=== PATIENT | female | born 1960 | race Caucasian/White ===

== ENCOUNTER → 2016-07-20 | Outpatient (CLI) | payer MEDICARE | END | disposition home or self-care (01) | LOC: LABWHC1 15:18 | PROVIDERS: ATTEND Orthopaedic Surgery | DX: Z01.812 Encounter for preprocedural laboratory examination (principal) | CPT/HCPCS: 87070 ==

== ENCOUNTER → 2016-07-20 | Outpatient (CLI) | payer MEDICARE ==
--- NOTE | 2016-07-20 15:44 | XR ---
EXAMINATION TYPE: XR chest 2V DATE OF EXAM: 07/20/2016 3:39 PM COMPARISON: Prior chest x-ray February 21, 2013. HISTORY: Presurgical study. TECHNIQUE: Frontal and lateral views of the chest are obtained. FINDINGS: There is no focal air space opacity, pleural effusion, or pneumothorax seen. Slightly dimi nished inspiration is noted. The cardiac silhouette size is upper limits of normal. The osseous str uctures are intact. IMPRESSION: No acute process.
== END | disposition home or self-care (01) ==
LOC: RADXRMAIN 15:14
PROVIDERS: ATTEND Family Medicine
DX: Z01.818 Encounter for other preprocedural examination (principal); Z96.651 Presence of right artificial knee joint
CPT/HCPCS: 71020

== ENCOUNTER 2016-08-15 07:05 | Inpatient (IN) | payer MEDICARE ==
[2016-08-07 15:30] VITALS: BMI 44.6
--- NOTE | 2016-08-14 17:18 | HP ---
DATE OF ADMISSION: 08/15/2016 CHIEF COMPLAINT: Right knee pain. HISTORY OF PRESENT ILLNESS: The patient is a 56-year-old disabled female who presents with right knee pain, worsening over the past couple of years. She notes giving way along with diffuse pain that limits her normal function and activities. She has tried using a cane in addition to injections and medications, with only partial temporary relief. She has a difficult time with any walking. Past medical history is significant for: 1. Heart disease. 2. Depression. 3. Hypertension. 4. Previous CVA. Past surgical history is significant for: 1. Previous right knee arthroscopy. 2. Right foot surgery. 3. Gastric bypass. 4. Cholecystectomy. 5. Carpal tunnel release. 6. Cardiac catheterization. CURRENT MEDICATIONS: 1. Plavix. 2. Aspirin. 3. Lexapro. 4. Lipitor. 5. Losartan. 6. Hydrochlorothiazide. ALLERGIES: RELPAX. FAMILY HISTORY: Significant for diabetes and heart disease. SOCIAL HISTORY: Significant for previous tobacco use. Sixteen-point review of systems otherwise reviewed and is noncontributory. On examination, the patient is approximately 5 feet 1 inch, 234 pounds of endomorphic habitus. HEENT exam is nonfocal. Neck is supple. She is nontender about the lumbar spine. She has painless passive motion of the right hip. Ghljxjfy-xnf-ajkaf is negative. Active motion of the right knee minus 12 to 85 degrees of flexion. She has a moderate effusion. Collaterals are stable, Robert's negative. Kristyn's is equivocal. She has genu varum alignment. Her distal neurovascular exam appears to be intact in the right lower extremity. Weight-bearing notch, lateral and merchant views of the right knee obtained in the office show severe medial and patellofemoral compartment narrowing. IMPRESSION: 1. Right knee severe medial and patellofemoral compartment osteoarthrosis. 2. Increased body mass index. 3. Coronary artery disease. 4. History of cerebrovascular accident. RECOMMENDATIONS: I talked to the patient at length regarding her treatment options. At this point she is quite symptomatic and opts to proceed with surgery. Risks and benefits were discussed at length in layman's terms. She underwent preoperative medical evaluation by Dr. Mcgovern and cardiac evaluation by Dr. Flores. We will institute DVT prophylaxis postoperatively.
[~2016-08-15 07:05] MED LIST: ACETAMINOPHEN TAB 500 MG TAB PO ONE; DEXAMETHASONE SOD PHOSPHATE 10 MG/ML 1 ML VIAL IV ONE; FAMOTIDINE 20 MG/2 ML VIAL IV PRN; HYDROmorphone 1 MG/ML 1 ML SYRINGE IVP PRN; LIDOCAINE 1% 20 ML VIAL (10MG/ML) FOR IV START INTRADERMA PRN; MELOXICAM 7.5 MG TAB PO ONE; MIDAZOLAM 2 MG/2 ML VIAL IV PRN; ONDANSETRON 4 MG/2 ML VIAL IVP ONE; TRANEXAMIC ACID 1,000 MG in SODIUM CHLORIDE 0.9% 100 ML IVPB ONE; ceFAZolin 2 GM in SODIUM CHLORIDE 0.9% 100 ML IVPB ONE
[2016-08-15] MEDS: LACTATED RINGERS 1,000 ML IV SCH ×2 (09:56→23:41)
[2016-08-15] MEDS ORDERED: ROPIVACAINE 1,100 MG, SODIUM CHLORIDE 0.9% 330 ML MISCELLANE PRN ×2 (10:15)
--- NOTE | 2016-08-15 10:17 | P.ONQ ---
Anesthesiology Proc Note - PNB - Peripheral Nerve Block Performed Right Adductor Canal Time Out Performed: Yes Procedure Start Time: 10:00 Procedure Stop Time: 10:10 Indication: Acute Post-Operative Pain, Analgesia Sedation Type: Sedate with meaningful contact maintained Preparation: Sterile Prep Position: Supine Catheter: Indwelling Needle Types: On-Q, Totroy Needle Size: 100mm (4") Needle Gauge: 20 Technique: Ultrasound Injectate: 0.5% Ropivacaine (see comment for volume) Blood Aspirated: No Pain Paresthesia on Injection Noted: No Resistance on Injection: Normal Events: Uneventful and Well Tolerated
[2016-08-15] MEDS ORDERED: ROPIVACAINE 246.25 MG, EPINEPHrine 0.5 MG, KETOROLAC 30 MG, cloNIDine HCL/PF 80 MCG, WA... MISCELLANE ONE ×5 (10:19)
[2016-08-15] MEDS ORDERED: SODIUM CHLORIDE 0.9% 100 ML BAG ONE (11:14)
[2016-08-15] MEDS ORDERED: SUCCINYLCHOLINE CHLORIDE 100 MG/5 ML SYR IV ONE (11:14)
[2016-08-15] MEDS ORDERED: TRANEXAMIC ACID 1,000 MG/10 ML VIAL ONE (11:14)
[2016-08-15] MEDS ORDERED: PROPOFOL 10 MG/ML 20 ML VIAL IV ONE (11:14)
[2016-08-15] MEDS ORDERED: fentaNYL (PF) 50 MCG/ML 2 ML AMP ONE (11:14)
[2016-08-15] MEDS ORDERED: ePHEDrine 50 MG/ML 1 ML AMP ONE (11:14)
[2016-08-15] MEDS ORDERED: GLYCOPYRROLATE 0.2 MG/ML 2 ML VIAL ONE (11:14)
[2016-08-15] MEDS ORDERED: LIDOCAINE 1% INJ 10MG/ML (20 ML MDV) ONE (11:14)
[2016-08-15] MEDS ORDERED: ceFAZolin 3,000 MG in SODIUM CHLORIDE 0.9% IRRIGATIO 3,000 ML IRRIGATION ONE (11:30)
[2016-08-15] MEDS ORDERED: LACTATED RINGERS 1,000 ML IV ONE ×3 (11:45→14:43)
[2016-08-15] MEDS ORDERED: ONDANSETRON 4 MG/2 ML VIAL IVP PRN (12:50)
[2016-08-15] MEDS ORDERED: NALOXONE 0.4 MG/ML 1 ML VIAL IV PRN (12:50)
[2016-08-15] MEDS ORDERED: HYDROmorphone 1 MG/ML 1 ML SYRINGE IVP PRN ×2 (12:50)
[2016-08-15] MEDS ORDERED: HYDROcodone/APAP 7.5-325MG 1 EACH TAB PO PRN (12:50)
[2016-08-15] MEDS ORDERED: MAGNESIUM HYDROXIDE 2,400 MG/10 ML CUP PO PRN (12:50)
--- NOTE | 2016-08-15 13:23 | P.OP ---
Date of Procedure: 08/15/16 Preoperative Diagnosis: Right knee severe tricompartmental osteoarthrosis-primary Postoperative Diagnosis: Same Procedure(s) Performed: Right total knee nfrklgvxlqcz-qomhhpye-gpenqohq retaining Implants: Casi persona size 8 cemented femoral component, size the cemented tibial component, 10 mm articular surface, 32 m patella. This is a cruciate retaining implant. Anesthesia: GETA, regional, local Surgeon: Noel Adkins Mill Machinist #1: Mumtaz Kee Estimated Blood Loss (ml): 75 Pathology: other (Bone fragments) Condition: stable Disposition: PACU Indications for Procedure: The patient's a 56-year-old female who presents with progressive right knee pain secondary to osteoarthrosis despite conservative measures. A discussion of the risks and benefits of operative intervention versus continued conservative measures was made with the patient. She opted to proceed with surgery. Operative risks to include infection, neurovascular injury, development of blood clots, possible component loosening, possible component failure and need for subsequent procedures was discussed. Informed consent was obtained. Operative Findings: As below Description of Procedure: The patient was brought to the operating room, and after induction of general anesthesia the right lower extremity was prepped and draped in normal fashion. The tourniquet was inflated to 270 mmHg. A longitudinal incision extending 3 finger breaths above the sphere pole of patella extending to the medial aspect the tibial tubercle was then made. Skin and subcu tissues were divided sharply. Electrocautery was used for hemostasis. A medial parapatellar arthrotomy is performed. The medial soft tissues to include the superficial and deep portions of the medial collateral ligament as well as the medial hamstring tendons were elevated subperiosteally. I also elevated the posterior medial capsule. The proximal medial tibial osteophytes were carefully were removed. The ACL was sacrificed. A starting hole was made in the distal femur 1 cm anterior to the posterior cruciate ligament. An intramedullary guide was gently inserted planning on 5 valgus distal cut with 9.5 mm distal resection. The cutting block was pinned in place. The distal cut was then made. The posterior referencing sizing guide was utilized. I felt size 8 was most appropriate. 3 of external rotation was built in the system and verified off the trans-epicondylar axis and the posterior condyles. The cutting block was pinned in place. The anterior, posterior, and chamfer cuts were then made. The bone fragments were removed. A trial size 8 femoral component was placed and was fully seated. There is good anterior to posterior and medial to lateral fit. The distal peg holes were drilled. The trial component was then removed. Attention was then paid towards preparing the proximal tibia. An extra medullary guide was utilized in line with the tibial shaft and second metatarsal distally. A 7 posterior slope cutting block was utilized. I planned on 2 mm resection from the medial compartment. The cutting block was pinned in place. The proximal tibial cut was made protecting the posterior cruciate ligament with a retractor. The bone was removed one fragment. The tibia sized most appropriately at size E. The trial femoral and tibial components were placed after resecting the menisci at the capsular junction with electrocautery. A 10 mm articular surface was placed. The knee was then taken through a range of motion. I had good stability with varus and valgus stress and was able to obtain full flexion and extension. After several flexion and extension cycles, the tibial rotation was marked with electrocautery in line with the medial third of the tibial tubercle. Attention was then paid towards preparing the patella. A patella reamer was utilized taking senna 14 mm of bone stock. A good flush cut was made. The patella sized most appropriately 32 mm. The peg holes were drilled. The trial components placed. The knee was taken through a range of motion. I had good patellofemoral tracking with no hands technique. The trial components were then removed. The tibia was prepared in the appropriate rotation with the appropriate drill and keel punch. The posterior osteophytes of the distal femur were carefully removed with a curved osteotome. The flexion and extension gaps were checked and felt to be symmetric. The bony surfaces were prepared with pulsatile lavage and dried. The posterior soft tissues were injected with ropivacaine. The tibial component was then cemented in placed and was fully seated. Excess cement was removed. The femoral component was cemented in placed and was fully seated. Excess cement was removed. The trial 10 mm articular surface was placed and the knee was put in full extension. The patella component was cemented in placed and was fully seated. After the cement had sufficiently hardened, the knee was again taken through range of motion. Again I was able to obtain full flexion and extension with good stability with varus valgus stress. The trial articular surface was removed and the final one inserted. This was fully seated. Care was taken to avoid any soft tissue interposition. Pulsatile lavage was again utilized. The medial parapatellar arthrotomy was closed with #2 Ethibond suture. A deep drain was placed exiting laterally. The tourniquet was deflated the proximal a 70 minutes total tourniquet time. The subcutaneous tissues were reapproximated with interrupted 2-0 Vicryl sutures. Skin was reapproximated with 3-0 subcuticular strata fix suture. Skin tape and adhesive was applied. A sterile dressing was applied. The patient was awoken from general anesthesia and transferred to the recovery room in good condition. Blood loss was estimated 75 mL. No complications were incurred. Sponge and needle counts were correct at the end the case.
--- NOTE | 2016-08-15 14:10 | XR ---
EXAMINATION TYPE: XR knee limited RT DATE OF EXAM: 08/15/2016 1:43 PM CLINICAL HISTORY: Postoperative evaluation Two views of the right knee are submitted. Identified are changes of total knee arthroplasty with femoral and tibial components appearing well seated. Postsurgical soft tissue changes are noted. Alignment is anatomic.
[2016-08-15] MEDS: KETOROLAC 30 MG/ML 1 ML VIAL IVP PRN (16:17)
[2016-08-15] MEDS: HYDROcodone/APAP 7.5-325MG 1 EACH TAB PO PRN ×2 (16:29→21:54)
[2016-08-15] MEDS: hydrOXYzine PAMOATE 25 MG CAP PO PRN ×2 (16:30→21:55)
[2016-08-15] MEDS: traMADol 50 MG TAB PO SCH ×2 (18:20→23:40)
[2016-08-15] MEDS: SENNOSIDES-DOCUSATE SODIUM 1 EACH TAB PO SCH (21:59)
[2016-08-15] MEDS: ceFAZolin 2 GM in SODIUM CHLORIDE 0.9% 100 ML IVPB SCH (21:59)
[2016-08-16] MEDS: ceFAZolin 2 GM in SODIUM CHLORIDE 0.9% 100 ML IVPB SCH (04:08)
[2016-08-16] MEDS: HYDROcodone/APAP 7.5-325MG 1 EACH TAB PO PRN ×4 (05:29→23:31)
[2016-08-16] MEDS: hydrOXYzine PAMOATE 25 MG CAP PO PRN ×4 (05:29→23:31)
[2016-08-16] MEDS: FAMOTIDINE 20 MG TAB PO SCH (08:00)
[2016-08-16] MEDS: CLOPIDOGREL 75 MG TAB PO SCH (08:00)
[2016-08-16] MEDS: ASPIRIN 81 MG CHEW PO SCH (08:00)
[2016-08-16] MEDS: traMADol 50 MG TAB PO SCH ×5 (08:01→23:59)
[2016-08-16] MEDS: MELOXICAM 7.5 MG TAB PO SCH (08:02)
[2016-08-16 08:05] LABS: Basophils % (A) 0 %; CHCM 32.7; Eosinophils % (A) 0 %; HCT 35.2 % (34.0-46.0); HDW 2.49; Luc # (Auto) 0.25; Luc % (Auto) 3; Lymphocytes % (A) 10 %; MCH 31.4 pg (25.0-35.0); MCHC 34.1 g/dL (31.0-37.0); Mean Platelet Volume 7.4; Monocytes # (A) 0.6 k/uL (0-1.0); Monocytes % (A) 6 %; Neutrophils # (A) 7.9 k/uL (1.3-7.7); Neutrophils % (A) 81 %; RBC 3.82 m/uL (3.80-5.40); WBC 9.8 k/uL (3.8-10.6); WBC (Perox) 9.89
--- NOTE | 2016-08-16 09:22 | P.PN ---
Subjective pod 1; onq pump in place; catheter system intact; comfortable Objective - Vital Signs Vital signs: Vital Signs Temp 97.9 F 08/16/16 07:00 Pulse 71 08/16/16 07:00 Resp 16 08/16/16 07:00 BP 112/74 08/16/16 07:00 Pulse Ox 95 08/16/16 07:00 Intake & Output 08/15/16 08/16/16 08/16/16 18:59 06:59 18:59 Intake Total 2051 600 Output Total 195 355 Balance 1856 245 Intake: IV 2051 200 Lactated Ringers 1,000 ml 200 @ 50 mls/hr IV .Q20H CONCHA Rx#:[id number] Intake, IV Titration 400 Amount Lactated Ringers 1,000 ml 400 @ 50 mls/hr IV .Q20H CONCHA Rx#:[id number] Output: Drainage 5 Right Knee 5 Urine 120 350 Uretheral (Donahue) 350 Estimated Blood Loss 75 Other: Voiding Method Indwelling Catheter Indwelling Catheter Indwelling Catheter - Labs CBC & Chem 7: 08/16/16 07:25 Labs: Abnormal Lab Results - Last 24 Hours (Table) 08/16/16 Range/Units 07:25 Neutrophils # 7.9 H (1.3-7.7) k/uL
[2016-08-16] MEDS: HYDROCHLOROTHIAZIDE 25 MG TAB PO SCH (11:18)
[2016-08-16] MEDS: ESCITALOPRAM 20 MG TAB PO SCH (11:18)
[2016-08-16] MEDS: LOSARTAN 50 MG TAB PO SCH (11:19)
[2016-08-16] MEDS: ATORVASTATIN 10 MG TAB PO SCH (20:08)
[2016-08-16] MEDS: SENNOSIDES-DOCUSATE SODIUM 1 EACH TAB PO SCH (20:08)
[2016-08-16] MEDS: PRIMIDONE 50 MG TAB PO SCH (20:08)
[2016-08-16] MEDS: LACTATED RINGERS 1,000 ML IV SCH (20:09)
[2016-08-17] MEDS: KETOROLAC 30 MG/ML 1 ML VIAL IVP PRN ×2 (02:48→08:22)
[2016-08-17] MEDS: HYDROcodone/APAP 7.5-325MG 1 EACH TAB PO PRN ×3 (05:15→20:22)
[2016-08-17] MEDS: hydrOXYzine PAMOATE 25 MG CAP PO PRN ×3 (05:15→20:23)
[2016-08-17] MEDS: MELOXICAM 7.5 MG TAB PO SCH (08:01)
[2016-08-17] MEDS: CLOPIDOGREL 75 MG TAB PO SCH (08:01)
[2016-08-17] MEDS: FAMOTIDINE 20 MG TAB PO SCH (08:02)
[2016-08-17] MEDS: ASPIRIN 81 MG CHEW PO SCH (08:02)
[2016-08-17] MEDS: ESCITALOPRAM 20 MG TAB PO SCH (08:02)
[2016-08-17] MEDS: HYDROCHLOROTHIAZIDE 25 MG TAB PO SCH ×2 (08:04→12:01)
[2016-08-17] MEDS: LOSARTAN 50 MG TAB PO SCH ×2 (08:04→12:01)
[2016-08-17] MEDS: traMADol 50 MG TAB PO SCH ×4 (08:10→22:00)
--- NOTE | 2016-08-17 08:39 | P.PN ---
Progress Note - Text The patient is status post right adductor canal catheter placement. The catheter was placed for postoperative pain control, status post total right arthroplasty. Ropivacaine 0.2% is infusing at 12 mLs per hour. The patient has no complaints of right lower extremity numbness or weakness. Patient's VAS score is 4 -10. Assessment: Patient's adductor canal catheter is in place and working appropriately. Plan: continue infusion and adjust it as needed.
--- NOTE | 2016-08-17 09:45 | P.PN ---
Subjective Principal diagnosis: Status post right total knee arthroplasty Patient is seen today resting in her hospital, she appears comfortable. Her pain is well-controlled at this time. She denies any headaches, lightheadedness , chest pain, shortness of breath. Objective - Vital Signs Vital signs: Vital Signs Temp 99.4 F 08/17/16 07:25 Pulse 66 08/17/16 08:00 Resp 16 08/17/16 08:00 BP 105/71 08/17/16 07:25 Pulse Ox 95 08/17/16 07:25 Intake & Output 08/16/16 08/17/16 08/17/16 18:59 06:59 18:59 Output Total 300 Balance -300 Output: Urine 300 Uretheral (Donahue) 300 Other: Voiding Method Indwelling Catheter Toilet Toilet # Voids 1 1 - Exam Right lower extremity: Incision is clean, dry and intact. Minimal soft tissue swelling present around the knee. Calf is soft, palpation. Plantar flexion, dorsiflexion, EHL, FHL are intact. Sensory exam touch throughout the extremities intact, cap refills less than 2 seconds. - Labs CBC & Chem 7: 08/16/16 07:25 Assessment and Plan Plan: Assessment: 1. Postop day #2 status post right total knee arthroplasty Plan: 1. Pain control, continue oral medications 2. Continue working with therapy and CPM 3. Daily dressing changes/ice and elevate 4. GI and DVT prophylaxis, continue current meds 5. Medical recommendations 6. Discharge planning: Patient will be likely discharged home tomorrow Time with Patient: Less than 30
--- NOTE | 2016-08-17 09:47 | P.DS ---
Providers Date of admission: 08/15/16 08:50 Expected date of discharge: 08/18/16 Attending physician: Noel Adkins Consults: 08/15/16 12:52 Consult Physician Routine Consulting Provider: Raymond Mcgovern Consult Reason/Comments: Medical Management Do you want consulting provider notified?: Yes Primary care physician: Jose David Harkins [facility] Course: Date of admission: 08/15/2016 Date of discharge: 08/18/2016 Admission diagnosis: Status post right total knee arthroplasty Discharge diagnosis: Same Attending physician: Dr. Adkins Surgical procedures: Right total knee arthroplasty Brief history: Patient is a 56-year-old female with a history of progressive primary right knee osteoarthritis. At this point patient has failed conservative treatment measures and has opted to proceed with a elective right total knee arthroplasty. Hospital course: Details of patient's surgery can be found in operative report. Patient tolerated the procedure well and was subsequently transported to orthopedic floor. Patient's orthopeidc and medical care was provided daily. Patient had daily laboratory tests performed for evaluation of overall blood counts. Patient had daily physical therapy to include strengthening range of motion as well as education with walker ambulation. Patient had daily CPM usage as part of their physical therapy program. Patient was treated with aspirin and Plavix for their postoperative DVT prophylaxis during their inpatient stay. Patient was noted to have a relatively uneventful postoperative course. Patient reported satisfactory pain control with oral pain medications by postoperative day 0. Patient showed satisfactory progress with physical therapy. Patient moved steadily through the program and had no difficulty meeting the goals by postoperative day 3. Given patient's otherwise satisfactory course and having met physical therapy goals, plan is to discharge patient home on postoperative day 3. Discharge condition/disposition: Patient will be discharged home in stable condition. Discharge medications: Instructions are given on resumption of patient's normal daily medications per primary care recommendation, in addition patient will be prescribed [place] 7.5 mg/325 mg, tramadol 50 mg, Pepcid 20 mg, Colace 100 mg. Discharge instructions: 1. Wound care and infection precautions, keep incision dry and covered while showering, no lotions, creams, moisturizers. No soaking, tubs, pools, hottubs. Do not scrub over the incision. 2. Weight-bear as tolerated with walker / cane until follow-up. 3. Ice and elevate when necessary. Do not exceed 20 minutes per hour with ice pack. 4. Utilize compression sleeve until seen at first follow up appointment. 5. Visiting nursing care. 6. Home physical therapy including home CPM. 7. Pain meds and anticoagulants per prescription. 8. Pain medication has potential to cause constipation. Increase oral fluid and fiber intake. Contact primary care provider if you have not had a bowel movement within 48 hours after discharge 9. No anti-inflammatory medication until discussed at first post operative visit, this including Motrin, Aleve, Mobic, Diclofenac. 10. Follow up in office at 2 weeks postop with Marcus eKe PA-C 11. Follow up with your primary care doctor 7-10 days after discharge. 12. Contact [facility] with any questions, . Procedures: Right total knee arthroplasty Patient Condition at Discharge: Good Plan - Discharge Summary New Discharge Prescriptions: Docusate [Colace] 100 mg PO DAILY #30 capsule Famotidine [Pepcid] 20 mg PO DAILY #30 tablet HYDROcodone/APAP 7.5-325MG [[place] 7.5] 1 - 2 each PO Q6HR PRN #60 tab PRN Reason: Pain traMADol HCl [Ultram] 50 mg PO Q6H PRN #40 tab PRN Reason: Pain Discharge Medication List Hydrochlorothiazide [Hydrodiuril] 25 mg PO DAILY 12/19/13 [History] Atorvastatin Calcium [Lipitor] 10 mg PO HS #30 tab 12/21/13 [Rx] Clopidogrel [Plavix] 75 mg PO DAILY #30 tab 12/21/13 [Rx] Escitalopram Oxalate [Lexapro] 20 mg PO DAILY 02/17/15 [History] Losartan [Cozaar] 50 mg PO DAILY 02/17/15 [History] Primidone [Mysoline] 100 mg PO HS 02/17/15 [History] Aspirin [Adult Low Dose Aspirin EC] 81 mg PO DAILY 08/07/16 [History] Docusate [Colace] 100 mg PO DAILY #30 capsule 08/18/16 [Rx] Famotidine [Pepcid] 20 mg PO DAILY #30 tablet 08/18/16 [Rx] HYDROcodone/APAP 7.5-325MG [[place] 7.5] 1 - 2 each PO Q6HR PRN #60 tab 08/18/16 [ Rx] traMADol HCl [Ultram] 50 mg PO Q6H PRN #40 tab 08/18/16 [Rx] Follow up Appointment(s)/Referral(s): [facility], [NON-STAFF] - 1 Week Mumtaz Kee PAC [PHYSICIAN [employer] INSTALLER] - 2 Weeks Activity/Diet/Wound Care/Special Instructions: pt has CMP at home already walker to delivered to pt room Orthopedic Discharge Instructions: 1. Wound care and infection precautions, keep incision dry and covered while showering, no lotions, creams, moisturizers. No soaking, pools, hot tubs. Do not scrub over incision. 2. Weight-bear as tolerated with walker / cane until follow-up. 3. Ice and elevate when necessary. Do not exceed 20 minutes per hour with ice pack. 4. Utilize compression sleeve until seen at first follow up appointment. 5. Visiting nursing care. 6. Home physical therapy including home CPM. 7. Pain meds and anticoagulants per prescription. 8. Pain medication has potential to cause constipation. Increase oral fluid and fiber intake. Contact primary care provider if you have not had a bowel movement within 48 hours after discharge. 9. No anti-inflammatory medication until discussed at first post operative visit, this including Motrin, Aleve, Mobic, Diclofenac. 10. Follow up in office at 2 weeks postop with Marcus Kee PA-C 11. Follow up with your primary care doctor 7-10 days after discharge. 12. Contact [facility] with any questions, . Discharge Disposition: HOME WITH HOME HEALTH SERVICES
[2016-08-17] MEDS: LACTATED RINGERS 1,000 ML IV SCH (15:37)
[2016-08-17] MEDS: ATORVASTATIN 10 MG TAB PO SCH (20:24)
[2016-08-17] MEDS: PRIMIDONE 50 MG TAB PO SCH (20:24)
[2016-08-17] MEDS: SENNOSIDES-DOCUSATE SODIUM 1 EACH TAB PO SCH (22:00)
[2016-08-18] MEDS ORDERED: HYDROcodone/APAP 7.5-325MG 1 EACH TAB ONE (03:00)
[2016-08-18 05:26] VITALS: PULSE 74; RESP 16; TEMP 98.1
[2016-08-18 07:17] VITALS: BP 118/77
[2016-08-18 07:27] LABS: Basophils % (A) 0 %; CH 31.1; CHCM 33.6; Eosinophils # (A) 0.4 k/uL (0-0.7); Eosinophils % (A) 5 %; HDW 2.45; HGB 12.3 gm/dL (11.4-16.0); Luc % (Auto) 3; Lymphocytes # (A) 2.3 k/uL (1.0-4.8); Lymphocytes % (A) 31 %; MCH 30.7 pg (25.0-35.0); MCHC 33.1 g/dL (31.0-37.0); MCV 92.7 fL (80.0-100.0); Mean Platelet Volume 7.6; Monocytes # (A) 0.4 k/uL (0-1.0); Monocytes % (A) 5 %; Neutrophils # (A) 4.2 k/uL (1.3-7.7); Neutrophils % (A) 56 %; RBC 3.99 m/uL (3.80-5.40); RDW 13.2 % (11.5-15.5); WBC 7.4 k/uL (3.8-10.6); WBC (Perox) 7.84
[2016-08-18] MEDS: ESCITALOPRAM 20 MG TAB PO SCH (07:53)
[2016-08-18] MEDS: FAMOTIDINE 20 MG TAB PO SCH (07:53)
[2016-08-18] MEDS: CLOPIDOGREL 75 MG TAB PO SCH (07:53)
[2016-08-18] MEDS: ASPIRIN 81 MG CHEW PO SCH (07:53)
[2016-08-18] MEDS: HYDROCHLOROTHIAZIDE 25 MG TAB PO SCH (07:54)
[2016-08-18] MEDS: MELOXICAM 7.5 MG TAB PO SCH (07:54)
[2016-08-18] MEDS: traMADol 50 MG TAB PO SCH ×2 (07:54→12:30)
[2016-08-18] MEDS: LOSARTAN 50 MG TAB PO SCH (07:54)
[2016-08-18] MEDS: LACTATED RINGERS 1,000 ML IV SCH (07:56)
[2016-08-18] MEDS: HYDROcodone/APAP 7.5-325MG 1 EACH TAB PO PRN (09:41)
--- NOTE | 2016-08-18 11:41 | P.PN ---
Subjective Principal diagnosis: Status post right total knee arthroplasty Patient is seen today resting in her hospital, she appears comfortable. Her pain is well-controlled at this time. She denies any headaches, lightheadedness , chest pain, shortness of breath. Objective - Vital Signs Vital signs: Vital Signs Temp 98.1 F 08/18/16 07:00 Pulse 74 08/18/16 07:16 Resp 16 08/18/16 07:16 BP 118/77 08/18/16 07:00 Pulse Ox 95 08/18/16 07:00 Intake & Output 08/17/16 08/18/16 08/18/16 18:59 06:59 18:59 Intake Total 500 Balance 500 Weight 107.048 kg Intake: Oral 500 Other: Voiding Method Toilet Toilet Toilet # Voids 1 - Exam Right lower extremity: Incision is clean, dry and intact. Minimal soft tissue swelling present around the knee. Calf is soft, palpation. Plantar flexion, dorsiflexion, EHL, FHL are intact. Sensory exam touch throughout the extremities intact, cap refills less than 2 seconds. - Labs CBC & Chem 7: 08/18/16 07:02 Assessment and Plan Plan: Assessment: 1. Postop day #3 status post right total knee arthroplasty Plan: 1. Pain control, continue oral medications 2. Continue working with therapy and CPM 3. Daily dressing changes/ice and elevate 4. GI and DVT prophylaxis, continue current meds 5. Medical recommendations 6. Discharge planning: Patient will be discharged home today Time with Patient: Less than 30
== END 2016-08-18 13:39 | disposition home health service (06) | DRG 470 ==
LOC: 2ORMAIN 08:50 → 3SUR 12:45
PROVIDERS: ADMIT Orthopaedic Surgery; ATTEND Orthopaedic Surgery
PROC: 0SRC0J9 Replacement of Right Knee Joint with Synthetic Substitute, Cemented, Open Approach (ICD-10-PCS; principal; 2016-08-15 10:30)
DX: M17.11 Unilateral primary osteoarthritis, right knee (principal); Z68.41 Body mass index [BMI] 40.0-44.9, adult; I10 Essential (primary) hypertension; I25.10 Atherosclerotic heart disease of native coronary artery without angina pectoris; M25.761 Osteophyte, right knee; M21.161 Varus deformity, not elsewhere classified, right knee; E78.2 Mixed hyperlipidemia; E66.9 Obesity, unspecified; F32.9 Major depressive disorder, single episode, unspecified; Z82.49 Family history of ischemic heart disease and other diseases of the circulatory system; Z90.49 Acquired absence of other specified parts of digestive tract; Z98.84 Bariatric surgery status; Z87.891 Personal history of nicotine dependence; Z83.3 Family history of diabetes mellitus; Z88.8 Allergy status to other drugs, medicaments and biological substances; Z79.02 Long term (current) use of antithrombotics/antiplatelets; Z79.82 Long term (current) use of aspirin; Z79.899 Other long term (current) drug therapy; Z98.61 Coronary angioplasty status; Z86.73 Personal history of transient ischemic attack (TIA), and cerebral infarction without residual deficits; Z86.39 Personal history of other endocrine, nutritional and metabolic disease; Z87.09 Personal history of other diseases of the respiratory system; Z86.69 Personal history of other diseases of the nervous system and sense organs
CPT/HCPCS: 85025; 88300

== ENCOUNTER 2018-02-26 17:46 | Emergency (ER) | payer MEDICARE ==
[2018-02-26] MEDS ORDERED: SODIUM CHLORIDE 0.9% 1,000 ML IV ONE (17:56)
[2018-02-26 18:35] LABS: Basophils % (A) 1 %; Eosinophils # (A) 0.3 k/uL (0-0.7); Eosinophils % (A) 6 %; HCT 38.3 % (34.0-46.0); HGB 12.6 gm/dL (11.4-16.0); Lymphocytes # (A) 1.8 k/uL (1.0-4.8); Lymphocytes % (A) 32 %; MCH 30.4 pg (25.0-35.0); MCHC 32.9 g/dL (31.0-37.0); MCV 92.3 fL (80.0-100.0); Mean Platelet Volume 6.8; Monocytes # (A) 0.4 k/uL (0-1.0); Monocytes % (A) 6 %; Neutrophils # (A) 2.9 k/uL (1.3-7.7); Neutrophils % (A) 52 %; Platelet Count 175 k/uL (150-450); RBC 4.15 m/uL (3.80-5.40); RDW 13.5 % (11.5-15.5); WBC 5.6 k/uL (3.8-10.6)
[2018-02-26 18:46] LABS: Calcium 8.8 mg/dL (8.4-10.2); Potassium 4.1 mmol/L (3.5-5.1)
[2018-02-26 19:10] LABS: INR 1.1 (<1.2); Partial Thromboplastin Time 21.7 sec (22.0-30.0); Prothrombin Time 10.3 sec (9.0-12.0)
--- NOTE | 2018-02-26 19:26 | CT ---
EXAMINATION: CT brain wo con DATE AND TIME: 02/26/2018 6:47 PM CLINICAL INDICATION: Pain Fall from 6ft. TECHNIQUE: Standard departmental protocol. COMPARISON: CT 12/19/2013 FINDINGS: The calvarium is intact. There is no intracranial hemorrhage. There is no intracranial mass or mass effect. No definite new intra-axial or extra-axial attenuation defect. The paranasal sinuses, middle ear cavities, and mastoid sinus air cells are clear. The orbits are unremarkable. IMPRESSION: NO ACUTE PROCESS.
[2018-02-26 19:57] VITALS: RESP 19
--- NOTE | 2018-02-26 20:01 | XR ---
EXAMINATION: XR chest 2V DATE AND TIME: 02/26/2018 6:53 PM CLINICAL INDICATION: fall, pain TECHNIQUE: PA and lateral COMPARISON: 07/20/2016 FINDINGS: The lungs are clear. The pleural spaces are negative. The cardiac silhouette is not enlarged. The remainder of the mediastinal silhouette is unremarkable. The skeletal structures and soft tissues are negative for acute findings. IMPRESSION: NO ACUTE PROCESS.
[2018-02-26] MEDS ORDERED: MORPHINE SULFATE 4 MG/ML SYRINGE IVP STA (20:03)
--- NOTE | 2018-02-26 20:08 | XR ---
PROCEDURE: XR Hip LT and AP Pelvis 3V DATE AND TIME: 02/26/2018 6:53 PM CLINICAL INDICATION: [facility] Pain TECHNIQUE: Department protocol. 3V COMPARISON: None FINDINGS: There is no fracture or malalignment. Mild soft tissue swelling about the left hip is seen. IMPRESSION: Negative for fracture.
--- NOTE | 2018-02-26 20:10 | XR ---
PROCEDURE: XR lumbar spine 3V DATE AND TIME: 02/26/2018 6:55 PM CLINICAL INDICATION: [facility] Pain TECHNIQUE: Department protocol. 3V COMPARISON: None FINDINGS: There is no fracture or malalignment. There are multilevel advanced facet osteoarthritis ch anges and multilevel zljx-uz-fbywxjlp degenerative disc changes. The soft tissues are unremarkable. IMPRESSION: NO ACUTE PROCESS.
[2018-02-26 21:19] VITALS: BP 154/85; PULSE 61
--- NOTE | 2018-02-26 21:19 | ED ---
Fall HPI - General Chief Complaint: Fall Stated Complaint: fall, hip pain Time Seen by Provider: 02/26/18 17:50 Source: patient Mode of arrival: ambulatory - History of Present Illness Initial Comments: This 58-year-old white female present with a complaint of a fall. She apparently was on a ladder approximately 2-3 feet up when she fell to the ground. She apparently landed on her back. She is complaining of some left hip pain as well as some low back pain. She denies any head injury or neck pain. She does complain of a slight headache and states that this likely was from the jarring but adamantly denies hitting her head. She denies any other areas of injury. This occurred just shortly prior to arrival. She does present via EMS. No other injuries or complaints or modifying factors. There is no loss of consciousness. She's been acting normal. - Related Data Home Medications Medication Instructions Recorded Confirmed Hydrochlorothiazide [Hydrodiuril] 25 mg PO DAILY 12/19/13 02/26/18 Escitalopram Oxalate [Lexapro] 20 mg PO DAILY 02/17/15 02/26/18 Losartan [Cozaar] 50 mg PO DAILY 02/17/15 02/26/18 Primidone [Mysoline] 100 mg PO HS 02/17/15 02/26/18 Clopidogrel [Plavix] 75 mg PO HS 02/26/18 02/26/18 Previous Rx's Medication Instructions Recorded Atorvastatin Calcium [Lipitor] 10 mg PO HS #30 tab 12/21/13 traMADol HCl [Ultram] 50 - 100 mg PO Q6H PRN #12 tab 02/26/18 Allergies Allergy/AdvReac Type Severity Reaction Status Date / Time eletriptan HBr [From Relpax] Allergy Swelling Verified 02/26/18 18:02 Review of Systems ROS Statement: Those systems with pertinent positive or pertinent negative responses have been documented in the HPI. ROS Other: All systems not noted in ROS Statement are negative. Past Medical History Past Medical History: Coronary Artery Disease (CAD), Cancer, CVA/TIA, Hyperlipidemia, Hypertension, Myocardial Infarction ([place]), Osteoarthritis (OA) Additional Past Medical History / Comment(s): pituitary tumor-, migraines, UTERINE CANCER. CVA 2013-ESSENTIAL TREMORS RIGHT SIDE CONTROLLED WITH PRIMADONE , USES A CAN Last Myocardial Infarction Date:: 2006 History of Any Multi-Drug Resistant Organisms: None Reported Past Surgical History: Bariatric Surgery, Section, Cholecystectomy, Heart Catheterization, Orthopedic Surgery, Tubal Ligation Additional Past Surgical History / Comment(s): gastric sleeve. RT FOOT SX. RT KNEE SX. EGD Past Anesthesia/Blood Transfusion Reactions: No Reported Reaction Past Psychological History: Anxiety, Depression Smoking Status: Former smoker - Past Family History Mother Family Medical History: No Reported History General Exam - General Exam Comments Initial Comments: GENERAL: The patient is well nourished and well hydrated. VITAL SIGNS: Heart rate, blood pressure, respiratory rate reviewed as recorded in nurse's notes. EYES: Pupils are round and reactive. Extraocular movements are intact. No conjunctival / lid redness or swelling. ENT: No external evidence of injury, swelling, or ecchymosis. Airway is patent. Throat is clear. NECK: Nontender. No swelling or evidence of injury. No subcutaneous emphysema. Trachea is midline. No thyroid mass. HEART: Regular rate and rhythm. Good peripheral pulses. LUNGS/CHEST: Breath sounds clear and equal bilaterally. No rales, rhonchi, or wheezes. No ecchymosis, subcutaneous emphysema, or tenderness. ABDOMEN: Abdomen soft without tenderness. No palpable masses or organomegaly. No peritoneal signs. No abdominal wall swelling or ecchymosis. EXTREMITIES: Tenderness is noted to the left hip. There is some pain with any movement of the left hip as well. Normal muscle tone and function. Tenderness is noted to the bilateral paralumbar musculature. NEUROLOGIC: Sensation is grossly intact. Cranial nerve exam reveals face is symmetrical, tongue is midline, speech is clear. SKIN: No abrasions or ecchymosis is noted. No induration or masses noted. PSYCHIATRIC: Alert and oriented. Appropriate behavior and judgment. Limitations: no limitations Course Vital Signs 02/26/18 02/26/18 17:59 19:56 Temperature 98.1 F Pulse Rate 81 60 Respiratory 18 19 Rate Blood Pressure 168/90 151/91 O2 Sat by Pulse 97 97 Oximetry Medical Decision Making - Medical Decision Making The patient was seen and examined. She did receive 4 modems of morphine prior to EMS arrival. She later receives 4 modems morphine intravenously with continued relief. She did have a computed tomography scan of her brain as she is complaining of a headache slight any head trauma and this was negative. She also had an x-ray of the chest which does not show any acute processes. The x- ray of the left hip and pelvis does not show any acute abnormalities. She also had an x-ray of the lumbar spine which does not show any evidence of fracture or acute process. The laboratories all essentially within normal limits. It is felt as though she does have evidence of a left hip contusion. There is some soft tissue swelling noted on the x-ray of around the left hip. An ambulation trial is completed. Overall, is felt as though she could be discharged home and leaves in no severe distress. - Lab Data Result diagrams: 02/26/18 18:11 02/26/18 18:11 Lab Results 02/26/18 02/26/18 02/26/18 Range/Units 18:11 18:11 18:11 WBC 5.6 (3.8-10.6) k/uL RBC 4.15 (3.80-5.40) m/uL Hgb 12.6 (11.4-16.0) gm/dL Hct 38.3 (34.0-46.0) % MCV 92.3 (80.0-100.0) fL MCH 30.4 (25.0-35.0) pg MCHC 32.9 (31.0-37.0) g/dL RDW 13.5 (11.5-15.5) % Plt Count 175 (150-450) k/uL Neutrophils % 52 % Lymphocytes % 32 % Monocytes % 6 % Eosinophils % 6 % Basophils % 1 % Neutrophils # 2.9 (1.3-7.7) k/uL Lymphocytes # 1.8 (1.0-4.8) k/uL Monocytes # 0.4 (0-1.0) k/uL Eosinophils # 0.3 (0-0.7) k/uL Basophils # 0.0 (0-0.2) k/uL PT 10.3 (9.0-12.0) sec INR 1.1 (<1.2) APTT 21.7 L (22.0-30.0) sec Sodium 140 (137-145) mmol/L Potassium 4.1 (3.5-5.1) mmol/L Chloride 108 H (98-107) mmol/L Carbon Dioxide 27 (22-30) mmol/L Anion Gap 5 mmol/L BUN 11 (7-17) mg/dL Creatinine 0.86 (0.52-1.04) mg/dL Est GFR (CKD-EPI)AfAm 87 (>60 ml/min/1.73 sqM) Est GFR (CKD-EPI)NonAf 76 (>60 ml/min/1.73 sqM) Glucose 86 (74-99) mg/dL Calcium 8.8 (8.4-10.2) mg/dL Disposition Clinical Impression: Fall, Contusion of left hip, Lumbar strain, Hypertension Disposition: HOME SELF-CARE Condition: Good Instructions: Hip Contusion (ED), Fall Prevention (ED), Low Back Strain (ED), Hypertension (ED) Additional Instructions: You also may use Tylenol and/or Motrin if needed for pain. Prescriptions: traMADol HCl [Ultram] 50 - 100 mg PO Q6H PRN #12 tab PRN Reason: Pain Is patient prescribed a controlled substance at d/c from ED?: Yes When asked, does pt state using other controlled substances?: No If prescribed controlled substance>3 days was MAPS reviewed?: Prescribed <3 Days Referrals: Raymond Mcgovern DO [Primary Care Provider] - 1-2 days Time of Disposition: 21:18
[2018-02-26 21:29] VITALS: TEMP 97.4
== END 2018-02-26 21:27 | disposition home or self-care (01) ==
LOC: EC 17:46
DX: S39.012A Strain of muscle, fascia and tendon of lower back, initial encounter (principal); S70.02XA Contusion of left hip, initial encounter; I10 Essential (primary) hypertension; R51 Headache; I25.10 Atherosclerotic heart disease of native coronary artery without angina pectoris; I25.2 Old myocardial infarction; F32.9 Major depressive disorder, single episode, unspecified; F41.9 Anxiety disorder, unspecified; Z87.891 Personal history of nicotine dependence; Z88.8 Allergy status to other drugs, medicaments and biological substances; Z79.02 Long term (current) use of antithrombotics/antiplatelets; Z79.899 Other long term (current) drug therapy; Z86.73 Personal history of transient ischemic attack (TIA), and cerebral infarction without residual deficits; Z86.69 Personal history of other diseases of the nervous system and sense organs; Z95.9 Presence of cardiac and vascular implant and graft, unspecified; W11.XXXA Fall on and from ladder, initial encounter
CPT/HCPCS: 99284; 96374; 96361 ×3; 36415; 80048; 85025; 85610; 85730; 72100; 73502; 71046; 70450; J2270

== ENCOUNTER → 2018-03-14 | Outpatient (CLI) | payer MEDICARE ==
[2018-03-14 09:56] VITALS: BP 136/84; PULSE 76; TEMP 98.4; BMI 47.2
--- NOTE | 2018-03-14 10:38 | P.HPBAR ---
Bariatric H&P - History & Physicial H&P Date: 03/14/18 History & Physicial: Visit/CC: RnY consult Patient initial contact: Initial weight: 266.5 kg Initial weight in pounds: 587.53 Height: 5 ft 3 in Initial BMI: 104.0 Last weight: Current weight: 120.882 kg Current weight in pounds: 266.50 Current BMI: 47.2 [place] body weight (based on NIH guidelines): 52.163 kg Excess body weight loss: 67.9% The patient is a 58 year-old F who presents for Bariatric Assessment. HPI: She comes in with a sleeve with highest weight of 335 pounds, lowest was 235 pounds. Sleeve was done over 8 years ago in [place] in [place]. She denied any GERD prior to surgery. She was not given the option other than a lap band. She had not had any informative education pre-op or post-op. She has not any follow-up with any weight loss surgeons. She reports still drinking pop and straws. She reports eating less. No gallbladder. No abdominal pain with the exception pulling sensation along the left quadrant. She reports being on blood pressure pill at that time. No reports of diabetes except in family for her mother and brothers. She has not spoke in 8 years. Use powders for apron of skin without relief and including the breast. She has no improvement of her symptoms. She reports back pain from her lower back. She wanted to get to 165 pounds. She has history of h. pylori gastritis. She does self-breast exam. Last mammogram was 4 years ago. ABDOMEN: Left upper quadrant scar with tenderness. Panniculitis moderate of 10 pounds. ASSESSMENT: 1. Morbid obesity 2. Panniculitis PLAN: 1. 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 Recommend [employer] pal and 2 weeks protein diet to start weight loss. 3. Upper endoscopy for abdominal pain. 4. Colonoscopy for colon cancer. 5. Recommend bariatric labs 6. Recommend mammogram Past Medical History Past Medical History: Coronary Artery Disease (CAD), Cancer, CVA/TIA, Hyperlipidemia, Hypertension, Myocardial Infarction ([place]), Osteoarthritis (OA) Additional Past Medical History / Comment(s): pituitary tumor present & stable since age 26 -, migraines, UTERINE CANCER at age 28. CVA 2013-ESSENTIAL TREMORS RIGHT SIDE CONTROLLED WITH PRIMADONE, USES A CANE Last Myocardial Infarction Date:: 2005 History of Any Multi-Drug Resistant Organisms: None Reported Past Surgical History: Bariatric Surgery, Section, Cholecystectomy, Heart Catheterization, Orthopedic Surgery, Tubal Ligation Additional Past Surgical History / Comment(s): gastric sleeve. RT FOOT SX. RT KNEE SX (replaced). EGD Past Anesthesia/Blood Transfusion Reactions: No Reported Reaction Past Psychological History: Anxiety, Depression Smoking Status: Former smoker Past Alcohol Use History: None Reported Additional Past Alcohol Use History / Comment(s): QUIT SMOKING 2010 Past Drug Use History: None Reported - Past Family History Mother Family Medical History: No Reported History Surgical - Exam Vital Signs Temp Pulse BP 98.4 F 76 136/84 03/14/18 09:48 03/14/18 09:48 03/14/18 09:48 Bariatric Checklist Checklist: Plan: Checklist: EGD: 1. Hiatal hernia: 2. H. Pylori: HgbA1c: Vitamin D: Smoking: Former smoker Primary care physician referral: Raymond Mcgovern Psychiatry clearance: Cardiology clearance: Sleep study: Diet journal: VTE risk score: VTE risk level: Rehab needs at discharge:
[2018-03-14 13:56] LABS: HCT 39.4 % (34.0-46.0); HGB 12.7 gm/dL (11.4-16.0); MCH 29.9 pg (25.0-35.0); MCHC 32.2 g/dL (31.0-37.0); MCV 92.9 fL (80.0-100.0); Mean Platelet Volume 7.4; Platelet Count 182 k/uL (150-450); RBC 4.24 m/uL (3.80-5.40); RDW 13.4 % (11.5-15.5); WBC 6.1 k/uL (3.8-10.6)
[2018-03-14 19:26] LABS: Albumin/Globulin Ratio 2.11 (1.20-2.10); Anion Gap 5.9 mmol/L (4.00-12.00); Calcium 8.7 mg/dL (8.7-10.3); Carbon Dioxide 28.1 mmol/L (21.6-31.8); Globulin 1.9 g/dL (2.1-3.7); Iron Saturation 27.18 (12.00-45.00); Potassium 3.7 mmol/L (3.5-5.5); Total Bilirubin 0.9 mg/dL (0.3-1.2); Total Protein 5.9 g/dL (6.2-8.2)
[2018-03-14 19:57] LABS: Folate, Serum 17.8 ng/mL
[2018-03-14 23:52] LABS: Hemoglobin A1C 6.1 % (4.0-6.0)
== END ==
LOC: BARWHC3 09:35
PROVIDERS: ATTEND Surgery Plastic and Reconstructive Surgery
DX: Z48.815 Encounter for surgical aftercare following surgery on the digestive system (principal); E66.01 Morbid (severe) obesity due to excess calories; M79.3 Panniculitis, unspecified; E88.81 Metabolic syndrome and other insulin resistance; E44.0 Moderate protein-calorie malnutrition; E55.9 Vitamin D deficiency, unspecified; G47.30 Sleep apnea, unspecified; I11.9 Hypertensive heart disease without heart failure; Z68.43 Body mass index [BMI] 50.0-59.9, adult; Z98.84 Bariatric surgery status; Z87.891 Personal history of nicotine dependence; Z90.49 Acquired absence of other specified parts of digestive tract
CPT/HCPCS: 84425; 80061; 80053; 82607; 82728; 82746; 83540; 83550; 84443; 85027; 82306; 83036; 93005; G0463; 99211

== ENCOUNTER → 2018-04-23 | Outpatient (CLI) | payer MEDICARE ==
--- NOTE | 2018-05-02 10:08 | MM ---
Reason for exam: screening (asymptomatic). Last mammogram was performed 5 years and 3 months ago. History: Patient is postmenopausal and has history of other cancer at age 28. Physical Findings: A clinical breast exam by your physician is recommended on an annual basis and results should be correlated with mammographic findings. MG 3D Screening Mammo W/Cad Bilateral CC and MLO view(s) were taken. Prior study comparison: February 03, 2013, mammogram, performed at [facility]. There are scattered fibroglandular densities. There is no discrete abnormality. No significant changes when compared with prior studies. ASSESSMENT: Negative, BI-RAD 1 RECOMMENDATION: Routine screening mammogram of both breasts in 1 year.
== END ==
LOC: RADMAMWWP 11:09
PROVIDERS: ATTEND Surgery Plastic and Reconstructive Surgery
DX: Z12.31 Encounter for screening mammogram for malignant neoplasm of breast (principal)
CPT/HCPCS: 77063; 77067

== ENCOUNTER 2018-05-03 14:45 | Observation (INO) | payer MEDICARE ==
[2018-05-03] MEDS ORDERED: SODIUM CHLORIDE 0.9% 1,000 ML IV STA (15:40)
[2018-05-03] MEDS ORDERED: MORPHINE SULFATE 2 MG/ML SYRINGE IVP STA (15:41)
[2018-05-03] MEDS ORDERED: METOCLOPRAMIDE 5 MG/ML 2 ML VIAL IVP STA (15:41)
--- NOTE | 2018-05-03 15:44 | ED ---
General Adult HPI - General Chief complaint: Headache Stated complaint: Headache, Hypertensive Time Seen by Provider: 05/03/18 15:30 Source: patient, family, RN notes reviewed Mode of arrival: ambulatory Limitations: no limitations - History of Present Illness Initial comments: Patient is a pleasant 58-year-old female presenting to the emergency Department with complaints of headache. Onset of symptoms was when she awoke around 11 or 11:30. Patient states symptoms were there when she awoke. Discomfort is severe and persistent. Patient does have history of similar headaches however only gets some around once a year or so. Patient has noticed that her right eye does look a little bit swollen. Patient also states her right eye is somewhat blurry. Patient has a difficult time describing the problem she is having with her right eye. Patient states she does have right arm and right leg weakness that is chronic and unchanged. Patient states his arm and leg weakness is from previous stroke. No speech problems. Mild photophobia. No nausea or vomiting. Patient's blood pressure at home when she awoke was 197/ 92. This was prior to taking her medication. Patient updated about a half an hour later with only some improvement. - Related Data Home Medications Medication Instructions Recorded Confirmed Hydrochlorothiazide [Hydrodiuril] 25 mg PO DAILY 12/19/13 05/03/18 Escitalopram Oxalate [Lexapro] 20 mg PO DAILY 02/17/15 05/03/18 Losartan [Cozaar] 50 mg PO DAILY 02/17/15 05/03/18 Primidone [Mysoline] 100 mg PO HS 02/17/15 05/03/18 Clopidogrel [Plavix] 75 mg PO HS 02/26/18 05/03/18 Aspirin [Labette Aspirin EC] 81 mg PO DAILY 05/03/18 05/03/18 Cholecalciferol (Vitamin D3) 2,000 unit PO DAILY 05/03/18 05/03/18 [Vitamin D3] Previous Rx's Medication Instructions Recorded Atorvastatin Calcium [Lipitor] 10 mg PO HS #30 tab 12/21/13 Omeprazole 40 mg PO DAILY #30 capsule. 03/27/18 Allergies Allergy/AdvReac Type Severity Reaction Status Date / Time eletriptan HBr [From Relpax] Allergy Severe Anaphylaxis Verified 05/03/18 15:51 Review of Systems ROS Statement: Those systems with pertinent positive or pertinent negative responses have been documented in the HPI. ROS Other: All systems not noted in ROS Statement are negative. Constitutional: Denies: fever Eyes: Reports: as per HPI, vision change. Denies: eye pain ENT: Denies: ear pain Respiratory: Denies: cough, dyspnea Cardiovascular: Denies: chest pain Endocrine: Denies: fatigue Gastrointestinal: Denies: abdominal pain, nausea, vomiting Genitourinary: Denies: dysuria Musculoskeletal: Denies: back pain Skin: Denies: rash Neurological: Reports: headache (Frontal headache). Denies: weakness, numbness , paresthesias, confusion, abnormal gait Past Medical History Past Medical History: Coronary Artery Disease (CAD), Cancer, CVA/TIA, Hyperlipidemia, Hypertension, Myocardial Infarction ([place]), Osteoarthritis (OA) Additional Past Medical History / Comment(s): pituitary tumor present & stable since age 26 -, migraines, UTERINE CANCER at age 28. CVA 2013-ESSENTIAL TREMORS RIGHT SIDE CONTROLLED WITH PRIMADONE, USES A CANE Last Myocardial Infarction Date:: 2005 History of Any Multi-Drug Resistant Organisms: None Reported Past Surgical History: Bariatric Surgery, Section, Cholecystectomy, Heart Catheterization, Joint Replacement, Orthopedic Surgery, Tubal Ligation Additional Past Surgical History / Comment(s): gastric sleeve. RT FOOT SX. RT TKA. EGD Past Anesthesia/Blood Transfusion Reactions: No Reported Reaction Past Psychological History: Anxiety, Depression Smoking Status: Former smoker Past Alcohol Use History: None Reported Past Drug Use History: None Reported - Past Family History Mother Family Medical History: No Reported History General Exam Limitations: no limitations General appearance: alert, in no apparent distress Head exam: Present: atraumatic, other (No tenderness to the temporal artery.) Eye exam: Present: PERRL, other (There is minimal swelling to the right upper eyelid without erythema. Patient is unable to move either eye to the right of midline.) ENT exam: Present: normal oropharynx Neck exam: Present: normal inspection Respiratory exam: Present: normal lung sounds bilaterally Cardiovascular Exam: Present: regular rate, normal rhythm GI/Abdominal exam: Present: soft. Absent: tenderness Extremities exam: Present: normal inspection Neurological exam: Present: alert, CN II-XII intact (Except for patient unable to move either eye to the right of midline.) Expanded Neurological exam: Present: protecting the airway Speech: Present: fluid speech Cranial nerves: EOM's Intact: Abnormal Right, Facial Sensation: Normal Sensory exam: Upper Extremity Light Touch: Normal, Lower Extremity Light Touch: Normal Motor strength exam: RUE: 4 (Patient states chronic), LUE: 5, RLE: 4 (Patient states chronic), LLE: 5 Eye Response: (4) open spontaneously Motor Response: (6) obeys commands Verbal Response: (5) oriented Psychiatric exam: Present: normal affect, normal mood Skin exam: Present: normal color Course Vital Signs 05/03/18 05/03/18 05/03/18 14:48 16:39 18:12 Temperature 97.9 F Pulse Rate 69 65 55 L Respiratory 20 16 18 Rate Blood Pressure 193/82 140/100 141/79 O2 Sat by Pulse 97 98 92 L Oximetry EKG Findings - EKG Comments: EKG Findings:: Sinus bradycardia 59. GA 168. QRS 82. QT 460. QTC 455. Normal axis. Normal QRS. No acute ST change. Medical Decision Making - Medical Decision Making Patient reevaluated and resting comfortably in bed. Symptoms have improved. Patient is now able to gaze towards the right with her eyes. Headache is only mild at this time. Patient and family updated on results and plan. Symptoms are likely related to complicated migraine or TIA. Patient is felt best benefit by being evaluated by neurologist. Case was discussed in detail with Dr. Nance, covering for Dr. Mcgovern, who will admit. - Lab Data Result diagrams: 05/03/18 16:03 05/03/18 16:03 Lab Results 05/03/18 05/03/18 05/03/18 Range/Units 16:03 16:03 16:03 WBC 5.1 (3.8-10.6) k/uL RBC 4.41 (3.80-5.40) m/uL Hgb 13.5 (11.4-16.0) gm/dL Hct 40.0 (34.0-46.0) % MCV 90.8 (80.0-100.0) fL MCH 30.7 (25.0-35.0) pg MCHC 33.9 (31.0-37.0) g/dL RDW 13.3 (11.5-15.5) % Plt Count 156 (150-450) k/uL Neutrophils % 56 % Lymphocytes % 30 % Monocytes % 5 % Eosinophils % 6 % Basophils % 1 % Neutrophils # 2.9 (1.3-7.7) k/uL Lymphocytes # 1.5 (1.0-4.8) k/uL Monocytes # 0.3 (0-1.0) k/uL Eosinophils # 0.3 (0-0.7) k/uL Basophils # 0.0 (0-0.2) k/uL PT (9.0-12.0) sec INR (<1.2) APTT (22.0-30.0) sec Sodium 143 (137-145) mmol/L Potassium 4.2 (3.5-5.1) mmol/L Chloride 106 (98-107) mmol/L Carbon Dioxide 29 (22-30) mmol/L Anion Gap 8 mmol/L BUN 15 (7-17) mg/dL Creatinine 0.85 (0.52-1.04) mg/dL Est GFR (CKD-EPI)AfAm 88 (>60 ml/min/1.73 sqM) Est GFR (CKD-EPI)NonAf 77 (>60 ml/min/1.73 sqM) Glucose 95 (74-99) mg/dL Calcium 9.1 (8.4-10.2) mg/dL Total Bilirubin 0.8 (0.2-1.3) mg/dL AST 23 (14-36) U/L ALT 28 (9-52) U/L Alkaline Phosphatase 50 (38-126) U/L Total Creatine Kinase 103 (30-135) U/L CK-MB (CK-2) 0.5 (0.0-2.4) ng/mL CK-MB (CK-2) Rel Index 0.5 Troponin I <0.012 (0.000-0.034) ng/mL Total Protein 6.5 (6.3-8.2) g/dL Albumin 3.7 (3.5-5.0) g/dL 05/03/18 Range/Units 16:03 WBC (3.8-10.6) k/uL RBC (3.80-5.40) m/uL Hgb (11.4-16.0) gm/dL Hct (34.0-46.0) % MCV (80.0-100.0) fL MCH (25.0-35.0) pg MCHC (31.0-37.0) g/dL RDW (11.5-15.5) % Plt Count (150-450) k/uL Neutrophils % % Lymphocytes % % Monocytes % % Eosinophils % % Basophils % % Neutrophils # (1.3-7.7) k/uL Lymphocytes # (1.0-4.8) k/uL Monocytes # (0-1.0) k/uL Eosinophils # (0-0.7) k/uL Basophils # (0-0.2) k/uL PT 10.4 (9.0-12.0) sec INR 1.0 (<1.2) APTT 22.4 (22.0-30.0) sec Sodium (137-145) mmol/L Potassium (3.5-5.1) mmol/L Chloride (98-107) mmol/L Carbon Dioxide (22-30) mmol/L Anion Gap mmol/L BUN (7-17) mg/dL Creatinine (0.52-1.04) mg/dL Est GFR (CKD-EPI)AfAm (>60 ml/min/1.73 sqM) Est GFR (CKD-EPI)NonAf (>60 ml/min/1.73 sqM) Glucose (74-99) mg/dL Calcium (8.4-10.2) mg/dL Total Bilirubin (0.2-1.3) mg/dL AST (14-36) U/L ALT (9-52) U/L Alkaline Phosphatase (38-126) U/L Total Creatine Kinase (30-135) U/L CK-MB (CK-2) (0.0-2.4) ng/mL CK-MB (CK-2) Rel Index Troponin I (0.000-0.034) ng/mL Total Protein (6.3-8.2) g/dL Albumin (3.5-5.0) g/dL - Radiology Data Radiology results: report reviewed (Computed tomography scan of the brain as well as CTA reveals no acute process.), image reviewed (Chest x-ray shows no acute process) Disposition Clinical Impression: Cephalgia, TIA (transient ischemic attack) Disposition: ADMITTED IP TO THIS HOSP Is patient prescribed a controlled substance at d/c from ED?: No Referrals: Raymond Mcgovern DO [Primary Care Provider] - 1-2 days Decision Time: 19:32
[2018-05-03 16:19] LABS: Basophils % (A) 1 %; Eosinophils # (A) 0.3 k/uL (0-0.7); Eosinophils % (A) 6 %; HGB 13.5 gm/dL (11.4-16.0); Lymphocytes # (A) 1.5 k/uL (1.0-4.8); Lymphocytes % (A) 30 %; MCH 30.7 pg (25.0-35.0); MCHC 33.9 g/dL (31.0-37.0); MCV 90.8 fL (80.0-100.0); Mean Platelet Volume 7.7; Monocytes # (A) 0.3 k/uL (0-1.0); Monocytes % (A) 5 %; Neutrophils # (A) 2.9 k/uL (1.3-7.7); Neutrophils % (A) 56 %; Platelet Count 156 k/uL (150-450); RBC 4.41 m/uL (3.80-5.40); RDW 13.3 % (11.5-15.5); WBC 5.1 k/uL (3.8-10.6)
--- NOTE | 2018-05-03 16:23 | CT ---
EXAMINATION TYPE: CT brain wo con for TPA DATE OF EXAM: 05/03/2018 HISTORY: headache, hypertensive CT DLP: 1087.4 mGycm. Automated Exposure Control for Dose Reduction was Utilized. TECHNIQUE: CT scan of the head is performed without contrast. COMPARISON: Prior CT brain February 26, 2018. FINDINGS: There is no acute intracranial hemorrhage or midline shift identified. Ventricles and sul ci felt within normal limits in size for patient's age. Hyperostosis frontalis is seen. The globes a re intact and the visualized sinuses are clear. IMPRESSION: No acute intracranial hemorrhage or midline shift. No significant change from prior CT.
[2018-05-03 16:30] LABS: Albumin 3.7 g/dL (3.5-5.0); Calcium 9.1 mg/dL (8.4-10.2); Potassium 4.2 mmol/L (3.5-5.1); Total Bilirubin 0.8 mg/dL (0.2-1.3); Total Protein 6.5 g/dL (6.3-8.2)
[2018-05-03 16:33] LABS: Partial Thromboplastin Time 22.4 sec (22.0-30.0); Prothrombin Time 10.4 sec (9.0-12.0)
[2018-05-03 16:41] LABS: Creatine Kinase 103 U/L (30-135)
[2018-05-03 16:55] LABS: Creatine Kinase MB 0.5 ng/mL (0.0-2.4); Troponin I <0.012 ng/mL (0.000-0.034)
--- NOTE | 2018-05-03 18:11 | XR ---
EXAMINATION TYPE: XR chest 2V DATE OF EXAM: 05/03/2018 COMPARISON: 02/26/2018 HISTORY: Altered mental status TECHNIQUE: Frontal and lateral views of the chest are obtained. FINDINGS: There is no heart failure nor confluent pneumonic infiltrate. Costophrenic angles are taylor r. Bony thorax is intact. IMPRESSION: Normal chest. No change.
--- NOTE | 2018-05-03 18:37 | CT ---
EXAMINATION TYPE: CT angio head neck DATE OF EXAM: 05/03/2018 HISTORY: Headache. Hypertension. COMPARISON: None CT DLP: mGycm. Automated Exposure Control for Dose Reduction was Utilized. TECHNIQUE: CTA scan of the neck is performed , patient injected with mL of , axial images are obtain ed, coronal and sagittal reformatted images are reviewed. Three-D reconstructed images are created on an independent workstation and reviewed. Contrast was Isovue 100 mL. FINDINGS: There is normal branching pattern of the great vessels on the aortic arch. There is bilateral patency of the subclavian arteries. Thyroid gland is symmetric. There is bilateral patency of the vertebral arteries. Left vertebral louis ry slightly larger than the right. There is arterial flow in the vertebrobasilar artery system. There is arterial flow in the common internal and external carotid arteries bilaterally. I see no evidence of hemodynamic stenosis of the carotid arteries. There is no evidence of vertebral artery or carotid artery aneurysm or dissection. The carotid artery bifurcations appear widely patent. There is arterial flow in the anterior middle and posterior cerebral arteries. There is normal contra st opacification of the venous sinuses. There is no mass effect. There is no evidence of intracranial aneurysm or neovascularity. I see no evidence of intracranial arterial stenosis. IMPRESSION: Negative CT angiogram of the neck. Negative CT angiogram of the brain. No evidence of hem odynamic stenosis.
[2018-05-03] MEDS ORDERED: ASPIRIN 325 MG TAB PO STA (19:32)
[2018-05-03] MEDS ORDERED: ACETAMINOPHEN TAB 325 MG TAB PO PRN (20:52)
[2018-05-03] MEDS ORDERED: PRIMIDONE 50 MG TAB PO SCH (21:00)
[2018-05-03] MEDS ORDERED: CLOPIDOGREL 75 MG TAB PO SCH (21:00)
[2018-05-03] MEDS ORDERED: ATORVASTATIN 10 MG TAB PO SCH (21:00)
[2018-05-03 21:23] VITALS: RESP 16
[2018-05-03] MEDS: SODIUM CHLORIDE 0.9% 1,000 ML IV SCH (22:42)
[2018-05-04 06:39] LABS: Appearance,Urine Clear (Clear); Bacteria,Urine Rare /hpf; Bilirubin,Urine Negative (Negative); Blood,Urine Negative (Negative); Color,Urine Light Yellow; Glucose,Urine (UA) Negative (Negative); Ketones,Urine Negative (Negative); Leukocyte Esterase,Urine Moderate (Negative); Nitrite,Urine Negative (Negative); PH, Urine 5.5 (5.0-8.0); Protein,Urine Negative (Negative); RBC,Urine <1 /hpf (0-5); Specific Gravity,Urine 1.013 (1.001-1.035); Urobilinogen,Urine <2.0 mg/dL (<2.0); WBC,Urine 8 /hpf (0-5)
[2018-05-04 06:54] LABS: Cholesterol 136 mg/dL (<200); HDL Cholesterol 49 mg/dL (40-60); LDL Cholesterol,Calculated 74 mg/dL (0-99); Triglycerides 64 mg/dL (<150)
[2018-05-04] MEDS: SODIUM CHLORIDE 0.9% 1,000 ML IV SCH (06:57)
[2018-05-04] MEDS ORDERED: ASPIRIN 325 MG TAB PO SCH (09:00)
--- NOTE | 2018-05-04 09:00 | P.CNNES ---
History of Present Illness Consult date: 05/04/18 Reason for Consult: Patient admitted with right sided headaches. History of Present Illness: This patient is a pleasant 58-year-old right-handed white female who awoke yesterday morning at about 11 AM and noted a severe headache. She described the headache mostly involving the bifrontal area of the head as well as the right retro-orbital region. She apparently noticed some swelling around her right eyelid as well and was somewhat concerned. Her [id number] asked her to check her blood pressure at home and apparently was elevated at 197/92. Patient states her blood pressure usually is never that high. Due to the symptoms of headache and right eye facial swelling she decided to come to the emergency room for further evaluation. Patient does have a history of having suffered a stroke in 2013. She has been left with right-sided weakness following the stroke. Since her stroke she has been taking combination of Plavix and aspirin on a daily basis. We recommend she continue on dual antiplatelet therapy for secondary stroke prevention. During this recent event the patient denied any new symptoms of right-sided weakness. She did have some blurring of her vision in the right eye but this may have been due to swelling around the right eyelid. She was brought into the emergency room at [facility] for further evaluation. She was seen in the ER by Dr. Cardona who ordered a computed tomography scan of the brain as well as a CTA angiogram of the head and neck. Computed tomography scan of the brain revealed no acute intracranial hemorrhage or midline shift. No significant change from prior CAT scan done on 02/26/2018. CT angiogram of the head and neck was normal with no evidence of cerebral aneurysm or significant arterial stenosis. The patient was admitted to hospital for further evaluation. Her blood pressure in the ER when she arrived was still elevated at 193/82. She was given some treatment in the ER and she was restarted on her regular 2 antihypertensive medications and was admitted to the hospital. This morning in the medical floor the patient is feeling much better. She states that her swelling around the right eyelid has significantly improved. There is still minimal eyelid swelling noted in the right upper lid. The eyelid is not up securing her obstructing her vision at all. There is no other facial swelling on the right side. Her blood pressure this morning on the medical floor is 131/ 74. The patient states her headache has completely resolved. We did inquire about possibility of missing her medication but this has not been the case according to the patient. We also inquired whether there was excessive salt intake recently and she does admit that possibly she was using too much salt in her diet during the . Normally she never add salt to much of her food but due to the she did have some meals that she normally would not have had previously. The patient states she is feeling much better today. She has had no nausea or vomiting. Her vision is completely resolved in the right eye as well and she has no blurring. She denies any photophobia or sonophobia at this time. The patient typically takes only Tylenol for her typical headache. She has a history of migraine headaches in the past but had adverse reaction to Relpax and does not use any triptan medications. Patient also mentions that she is being scheduled for gastric bypass surgery early next year and is being followed by several specialists for this as well. Overall the patient states she is feeling much better and back to her baseline this morning. We will continue to follow her progress closely during this admission. Overall prognosis for her at this time remains fair. Review of Systems Constitutional: Denies chills, Denies fever Eyes: denies blurred vision, denies pain Ears, nose, mouth and throat: Denies headache, Denies sore throat Cardiovascular: Denies chest pain, Denies shortness of breath Respiratory: Denies cough Gastrointestinal: Denies abdominal pain, Denies diarrhea, Denies nausea, Denies vomiting Genitourinary: Denies dysuria, Denies hematuria Musculoskeletal: Denies myalgias Integumentary: Denies pruritus, Denies rash Neurological: Reports headaches, Reports paresthesias, Denies numbness, Denies weakness Psychiatric: Denies anxiety, Denies depression Endocrine: Denies fatigue, Denies weight change Past Medical History Past Medical History: Coronary Artery Disease (CAD), Cancer, CVA/TIA, Hyperlipidemia, Hypertension, Myocardial Infarction ([place]), Osteoarthritis (OA) Additional Past Medical History / Comment(s): 05-03-18 PT WOULD LIKE A FLU VACCINE WHILE HERE. 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 pituitary tumor present & stable since age 26 -, migraines, UTERINE CANCER at age 28 cryo procedure. CVA 2013 affected short term memory and rt arm mild weakness, - ESSENTIAL TREMORS RIGHT SIDE CONTROLLED WITH PRIMADONE, USES A CANE Last Myocardial Infarction Date:: 2005 History of Any Multi-Drug Resistant Organisms: None Reported Past Surgical History: Bariatric Surgery, Section, Cholecystectomy, Heart Catheterization, Joint Replacement, Orthopedic Surgery, Tubal Ligation Additional Past Surgical History / Comment(s): gastric sleeve. RT FOOT SX plate /screw. RT TOTAL KNEE REPLACEMENT. EGD, colonoscopy Past Anesthesia/Blood Transfusion Reactions: No Reported Reaction Additional Past Anesthesia/Blood Transfusion Reaction / Comment(s): CLAUSTERPHOBIA. HAS NEVER RECEIVED ANY BLOOD TRNASFUSIONS Smoking Status: Former smoker - Past Family History Mother Family Medical History: Diabetes Mellitus, Hyperlipidemia Additional Family Medical History / Comment(s): HEART PROBLEMS Father Family Medical History: AFIB, Congestive Heart Failure (CHF), Hyperlipidemia Medications and Allergies Home Medications Medication Instructions Recorded Confirmed Type Hydrochlorothiazide [Hydrodiuril] 25 mg PO DAILY 12/19/13 05/03/18 History Atorvastatin Calcium [Lipitor] 10 mg PO HS #30 tab 12/21/13 05/03/18 Rx Escitalopram Oxalate [Lexapro] 20 mg PO DAILY 02/17/15 05/03/18 History Losartan [Cozaar] 50 mg PO DAILY 02/17/15 05/03/18 History Primidone [Mysoline] 100 mg PO HS 02/17/15 05/03/18 History Clopidogrel [Plavix] 75 mg PO HS 02/26/18 05/03/18 History Omeprazole 40 mg PO DAILY #30 capsule. 03/27/18 05/03/18 Rx Aspirin [Williams Aspirin EC] 81 mg PO DAILY 05/03/18 05/03/18 History Cholecalciferol (Vitamin D3) 2,000 unit PO DAILY 05/03/18 05/03/18 History [Vitamin D3] Allergies Allergy/AdvReac Type Severity Reaction Status Date / Time eletriptan HBr [From Relpax] Allergy Severe Anaphylaxis Verified 05/03/18 15:51 Physical Examination - Vital Signs Vital Signs: Vital Signs Temp Pulse Pulse Resp BP BP Pulse Ox 05/04/18 05:09 97.6 F 56 L 16 131/74 96 05/04/18 00:10 97.9 F 60 16 135/73 98 05/03/18 21:21 98.1 F 63 16 150/80 97 05/03/18 18:12 55 L 18 141/79 92 L 05/03/18 16:39 65 16 140/100 98 05/03/18 14:48 97.9 F 69 20 193/82 97 Intake and Output 05/03/18 05/04/18 05/04/18 22:59 06:59 14:59 Other: Voiding Method Toilet Toilet # Voids 1 2 Weight 117.3 kg - Constitutional General appearance: average body habitus, cooperative - EENT EENT: PERRL, mucous membranes moist - Respiratory Respiratory: lungs clear, normal breath sounds - Cardiovascular Cardiovascular: regular rate, normal S1, normal S2 Extremities: no peripheral edema bilaterally - Gastrointestinal Gastrointestinal: normoactive bowel sounds - Integumentary Integumentary: normal - Neurologic Cranial nerve examination: PERRL, EOMI, V1/V2/V3 grossly intact, face symmetric , tongue midline, intact shoulder shrug, intact gag reflex, intact corneal reflex, normal palatal elevation Speech examination: intact Sensorimotor examination: intact Motor examination - right side: 4/5: biceps, triceps, wrist flexion, wrist extension, parks recreation director, hip flexors, knee extensors, dorsiflexion, toe extension (EHL) , plantarflexion Motor examination - left side: 4/5: biceps, triceps, wrist flexion, wrist extension, parks recreation director, hip flexors, knee extensors, dorsiflexion, toe extension (EHL) , plantarflexion Detailed sensory examination: intact Reflex and gait examination: intact Reflexes: 1+: ankle, bicep, knee, tricep - Musculoskeletal Musculoskeletal: no pain - Psychiatric Psychiatric: mood/affect appropriate, cooperative Results - Laboratory Findings CBC and BMP: 05/03/18 16:03 05/03/18 16:03 Abnormal Lab Findings: Abnormal Labs 05/04/18 06:00 Ur Leukocyte Esterase Moderate H Urine WBC 8 H Urine Bacteria Rare H Assessment and Plan (1) Cephalgia Current Visit: Yes Status: Acute Code(s): R51 - HEADACHE SNOMED Code(s): 82078083 (2) History of migraine headaches Current Visit: Yes Status: Acute Code(s): Z86.69 - PERSONAL HISTORY OF DIS OF THE NERVOUS SYS AND SENSE ORGANS SNOMED Code(s): 706127889 (3) History of stroke Current Visit: Yes Status: Acute Code(s): Z86.73 - PRSNL HX OF TIA (TIA), AND CEREB INFRC W/O RESID DEFICITS SNOMED Code(s): 587485940 (4) TIA (transient ischemic attack) Current Visit: Yes Status: Acute Code(s): G45.9 - TRANSIENT CEREBRAL ISCHEMIC ATTACK, UNSPECIFIED SNOMED Code(s): 551661732 Plan: This patient is a pleasant 58-year-old female who was brought into the emergency room at [facility] yesterday for evaluation of right- sided headache pain and right eyelid swelling. Patient awoke at about 11 AM yesterday and was complaining of a severe bifrontal headache. She had no severe nausea vomiting associated with the event. She did check her blood pressure at home and it was very elevated at 197/92. She decided to come to the emergency room for further evaluation. She was seen in the ER last night at [facility] by Dr. Cardona. Computed tomography scan of the brain and CT angiogram of the head and neck was ordered and results are as noted above. There is no evidence of any acute findings on both of these studies. Patient was admitted to hospital for further evaluation of her acute cephalgia. After correction of her uncontrolled hypertension she is doing much better today. Her blood pressure is back to baseline. This patient likely had hypertensive cephalgia with uncontrolled hypertension as a cause of her headache. This morning she is doing much better and her headache has resolved. Her vision also is much improved and there is only slight right upper eyelid swelling which she will follow-up with her physician recruiter. She should also be checked for glaucoma. She has not had an eye evaluation in over 2 years. We reviewed the results of the computed tomography scan of the brain and CTA angiogram of the head and neck with the patient in detail and both studies are negative for any acute findings. We would recommend she avoid excessive salt use in her diet as this can trigger uncontrolled hypertension. She states she may have had too much salt recently during the [place] holidays in her meals. Neurologically she is very much intact this morning and has no focal deficits. She underwent echocardiogram this morning and results are pending. She has a history of a old stroke which she suffered in 2013. She has only minimal residual right-sided weakness. We recommend she continue on Plavix and aspirin for secondary stroke prevention. Hopefully if she remains asymptomatic she may be considered for discharge home. She may follow-up in the outpatient neurology clinic in 2-3 weeks for follow-up. Her overall prognosis at this time remains fair. We will continue to follow the patient closely during this admission. Time with Patient: Greater than 30
[2018-05-04] MEDS ORDERED: CHOLECALCIFEROL 1,000 UNIT TAB PO SCH (11:15)
[2018-05-04] MEDS ORDERED: ESCITALOPRAM 20 MG TAB PO SCH (11:15)
[2018-05-04] MEDS ORDERED: HYDROCHLOROTHIAZIDE 25 MG TAB PO SCH (11:15)
[2018-05-04] MEDS ORDERED: LOSARTAN 50 MG TAB PO SCH (11:15)
[2018-05-04] MEDS ORDERED: PANTOPRAZOLE 40 MG TABLET PO SCH (11:15)
[2018-05-04 11:52] VITALS: BP 143/80; PULSE 56; TEMP 97.7
--- NOTE | 2018-05-04 15:44 | ECHOF ---
Referral Reason:Thrombus MEASUREMENTS -------- HEIGHT: 160.0 cm WEIGHT: 117.0 kg BP: 131/74 IVSd: 1.3 cm (0.6 - 1.1) LVIDd: 3.1 cm (3.9 - 5.3) LVPWd: 1.3 cm (0.6 - 1.1) IVSs: 1.5 cm LVIDs: 1.8 cm LVPWs: 1.5 cm LAESV Index (A-L): 19.06 ml/m Ao Diam: 3.6 cm (2.0 - 3.7) LA Diam: 3.2 cm (2.7 - 3.8) AV Cusp: 2.1 cm (1.5 - 2.6) MV E Latrell: 0.71 m/s MV DecT: 238 ms MV A Latrell: 0.63 m/s MV E/A Ratio: 1.13 RAP: 5.00 mmHg RVSP: 11.92 mmHg FINDINGS -------- Sinus rhythm. This was a technically adequate study. The left ventricular size is normal. There is mild concentric left ventricular hypertrophy. Overa ll left ventricular systolic function is normal with, an EF between 55 - 60 %. The right ventricle is normal in size and function. Normal LA size by volume 22+/-6 ml/m2. The right atrium is normal in size. There is mild aortic valve sclerosis. There is no evidence of aortic regurgitation. There is no e vidence of aortic stenosis. The mitral valve leaflets are mildly thickened. There is trace to mild mitral regurgitation. Trace tricuspid regurgitation present. Right ventricular systolic pressure is normal at < 35 mmHg. There is no evidence of pulmonary hypertension. The pulmonic valve was not well visualized. The aortic root size is normal. Normal inferior vena cava with normal inspiratory collapse consistent with estimated right atrial pre ssure of 5 mmHg. There is no pericardial effusion. CONCLUSIONS -------- 1. Sinus rhythm. 2. This was a technically adequate study. 3. The left ventricular size is normal. 4. There is mild concentric left ventricular hypertrophy. 5. Overall left ventricular systolic function is normal with, an EF between 55 - 60 %. 6. Normal LA size by volume 22+/-6 ml/m2. 7. There is mild aortic valve sclerosis. 8. The mitral valve leaflets are mildly thickened. 9. There is trace to mild mitral regurgitation. 10. Trace tricuspid regurgitation present. 11. Right ventricular systolic pressure is normal at < 35 mmHg. 12. There is no evidence of pulmonary hypertension. 13. The pulmonic valve was not well visualized. 14. The aortic root size is normal. 15. There is no pericardial effusion. CANINE DEPUTY: Neal Orantes RDCS
--- NOTE | 2018-05-05 08:30 | HP ---
HISTORY AND PHYSICAL HISTORY AND PHYSICAL/DISCHARGE SUMMARY: This is a combination of history and physical and discharge summary. CHIEF COMPLAINTS: Headache. HISTORY OF PRESENT ILLNESS: This 58-year-old woman with a past medical history of multiple medical problems including CAD, history of CVA, hypertension, hyperlipidemia, history of myocardial infarction, DJD being followed by Dr. Mcgovern in the outpatient setting, was complaining of headache. The onset around 11:30 yesterday which happened when the patient was awake which was persistent, which is diffuse in character. The patient reports some blurry vision and some eye swelling also. Minimal weakness of the right arm and right leg was also complained of, and the patient was admitted for further evaluation and treatment. There is no history of fever, rigors or chills. No history of headache, loss of consciousness or seizures. Neurology evaluation with Dr. Ila Jimenez is in progress at this time. The possibility of TIA is also considered. The 2D echo with Doppler was done which showed ejection fraction of 50-60 percent. There is no history of any fever, rigor, chills at this time. PAST MEDICAL HISTORY: Of CVA/TIA, hypertension, hyperlipidemia, history of myocardial infarction, CAD. MEDICATIONS: Home medications are: 1. Mysoline 100 mg p.o. at bedtime. 2. Omeprazole 40 mg p.o. daily. 3. Cozaar 50 mg p.o. daily. 4. HydroDIURIL 25 mg. 5. Lexapro 20 mg p.o. daily. 6. Plavix 75 mg q.h.s. 7. Vitamin D3 2000 daily. 8. Lipitor 10 mg q.h.s. 9. Aspirin 81 mg. 10.Tylenol 650 q.4h p.r.n. ALLERGIES: RELPAX. FAMILY HISTORY: History of diabetes, hypertension, heart problems in the family. SOCIAL HISTORY: Previous history of smoking. No history of current smoking or alcohol. REVIEW OF SYSTEMS: ENT: As mentioned earlier. CARDIOVASCULAR: No angina or palpitations. RESPIRATION: No cough or hemoptysis. GI no nausea or vomiting. no dysuria. NERVOUS SYSTEMS: No numbness or weakness. ALLERGY/IMMUNOLOGY: No asthma or hayfever. MUSCULOSKELETAL: As mentioned earlier. HEMATOLOGY/ONCOLOGY: No history of anemia. ENDOCRINE: No history of diabetes or hypothyroidism. CONSTITUTIONAL: As mentioned earlier. Dermatology: Negative. Rheumatology: Negative. Psychiatry: As mentioned earlier. PHYSICAL EXAMINATION: GENERAL: The patient is alert and oriented x3. VITAL SIGNS: Pulse is 56, blood pressure 143/88, respirations 16, temperature 97.7, pulse ox 98% on room air. HEENT: Conjunctivae normal. Oral mucosa moist. NECK is no jugular venous distention. No carotid bruit. No lymph node enlargement. CARDIOVASCULAR SYSTEM: S1, S2 muffled. RESPIRATORY: Breath sounds diminished in the bases. No rhonchi. No crackles. ABDOMEN: Soft, nontender. No mass palpable. LEGS: No edema. No swelling. NERVOUS SYSTEM: Higher functions as mentioned. Moves all 4 limbs. No focal motor or sensory deficits. Lymphatics: No lymph nodes palpable in the neck, axillae or groin. SKIN: No ulcer, rash or bleeding. LABS: CBC within normal limits. PT/INR is normal and CMP within normal limits. UA noted. Otherwise, the 2D echo noted which is normal. CT angio of the chest was negative. ASSESSMENT: 1. Headaches, possibly status migrainous. 2. Rule out transient ischemic attack. 3. Cerebrovascular accident, transient ischemic attack history. 4. History of coronary artery disease. 5. Hypertension. 6. Myocardial infarction. 7. History of degenerative joint disease. 8. History of bariatric surgery. RECOMMENDATIONS AND DISCUSSION: In this 58-year-old woman who presented with multiple medical problems, patient is completely asymptomatic at this time. I recommend continue the current medications and including antiplatelet agents and Lipitor and closely follow with Dr. Mcgovern and Dr. Ila Jimenez. Please refer to the home medication list for list of medications. Once again, patient is being discharged in stable condition with guarded prognosis. Final diagnoses as above. MMODL / IJN: [id number] /
== END 2018-05-04 14:33 | disposition home or self-care (01) ==
LOC: EC 14:45 → 3SCARD 19:32
PROVIDERS: ADMIT Internal Medicine; ATTEND Internal Medicine
DX: R51 Headache (principal); H53.149 Visual discomfort, unspecified; H53.8 Other visual disturbances; I10 Essential (primary) hypertension; M19.90 Unspecified osteoarthritis, unspecified site; I25.10 Atherosclerotic heart disease of native coronary artery without angina pectoris; E78.5 Hyperlipidemia, unspecified; D49.7 Neoplasm of unspecified behavior of endocrine glands and other parts of nervous system; H02.841 Edema of right upper eyelid; I69.351 Hemiplegia and hemiparesis following cerebral infarction affecting right dominant side; F41.9 Anxiety disorder, unspecified; F40.240 Claustrophobia; F32.9 Major depressive disorder, single episode, unspecified; Z79.82 Long term (current) use of aspirin; Z79.02 Long term (current) use of antithrombotics/antiplatelets; Z79.899 Other long term (current) drug therapy; Z88.8 Allergy status to other drugs, medicaments and biological substances; I25.2 Old myocardial infarction; Z85.42 Personal history of malignant neoplasm of other parts of uterus; Z90.49 Acquired absence of other specified parts of digestive tract; Z98.84 Bariatric surgery status; Z86.69 Personal history of other diseases of the nervous system and sense organs; Z96.651 Presence of right artificial knee joint; Z87.891 Personal history of nicotine dependence; Z83.49 Family history of other endocrine, nutritional and metabolic diseases; Z83.3 Family history of diabetes mellitus; Z82.49 Family history of ischemic heart disease and other diseases of the circulatory system
CPT/HCPCS: 96374; 96375; 99285; 36415; 93005; 93306; 97161; 80061; 80053; 82550; 82553; 84484; 85025; 85610; 85730; 81001; 71046; 70496; 70450; 70498; G0378 ×2; J2765; J2270; Q9967

== ENCOUNTER → 2018-05-15 | Outpatient (CLI) | payer MEDICARE ==
--- NOTE | 2018-05-15 14:52 | P.PN ---
Subjective Progress Note Date: 05/15/18 HPI: She had a migraines that caused neurologic deficits. She was hospitalized in the last 3 weeks for high blood pressure. She had history of a stroke. ABDOMEN: Unremarkable PLAN: 1. Pending psych 2. Pending PCP clearance 3. Pending for neurologist clearance off plavix 4. 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 5. Recommend revision to gastric bypass from mechanical complications of sleeve
[2018-05-15 14:53] VITALS: BP 161/82; PULSE 69; RESP 16; TEMP 98; BMI 46.4
== END ==
LOC: BARWHC3 13:20
PROVIDERS: ATTEND Surgery Plastic and Reconstructive Surgery
DX: G43.909 Migraine, unspecified, not intractable, without status migrainosus (principal); I10 Essential (primary) hypertension; Z86.73 Personal history of transient ischemic attack (TIA), and cerebral infarction without residual deficits
CPT/HCPCS: 99211

== ENCOUNTER → 2018-06-10 | Outpatient (CLI) | payer MEDICARE ==
[2018-06-10 13:09] VITALS: BMI 46.5
== END ==
LOC: BARWHC3 08:50
PROVIDERS: ATTEND Surgery Plastic and Reconstructive Surgery
DX: E66.01 Morbid (severe) obesity due to excess calories (principal); Z68.42 Body mass index [BMI] 45.0-49.9, adult
CPT/HCPCS: 97804

== ENCOUNTER → 2018-10-09 | Outpatient (CLI) | payer MEDICARE ==
--- NOTE | 2018-10-09 13:17 | P.PN ---
Subjective Progress Note Date: 10/09/18 She comes in today for consent for gastric bypass. Psych, neurology and cardiology are completed for clearances. She denies easy bruising. Went over common risks including. Consent for gastric bypass. DATE OF SERVICE: 05/15/2018 CHIEF COMPLAINT: Follow up sleeve gastrectomy HISTORY OF PRESENT ILLNESS: Alessandra Pardo is a 58-year-old female who had a sleeve gastrectomy with highest weight of 335 pounds, lowest was 235 pounds. Her sleeve was done over 8 years ago in [place] in [place]. She denied any GERD prior to surgery. She has history of h. pylori gastritis. She had a migraine that caused neurologic deficits. She was hospitalized in the last 3 weeks for high blood pressure. She has history of a stroke. She completed an upper endoscopy showing complications of her sleeve. At height of 5 feet 3 inches, her ideal body weight is 140 pounds. She comes in 261 pounds from 266 pounds, 2 months ago. She lost 4 pounds in 2 months. Her highest weight was 335 pounds. Her body mass index highest was 59.5. Today her BMI is 46.4. She has lost 74 pounds. Her percent excess weight loss is 38%. She is 121 pounds overweight. PAST MEDICAL HISTORY: 1. Morbid obesity due to excess calories 2. Body mass index of 59.5, initial 3. Osteoarthritis of the knees. 4. Coronary artery disease 5. Osteoarthritis of the lower back. 6. Hypertensive heart disease. 7. CVA/TIA 8. Gastroesophageal reflux disease 9. Myocardial infarction 10. Hyperlipidemia 11. Pituitary tumor 12. Migraines 13. Depressive disorder 14. Obstructive sleep apnea 15. Panniculitis 16. Uterine cancer 17. Anxiety 18. Depressive disorder PAST SURGICAL HISTORY: 1. Sleeve gastrectomy 2. section 3. Tubal ligation 4. Cholecystectomy 5. Heart catheterization 6. Right foot surgery 7. Right knee replacement 8. Upper endoscopy HOME MEDICATIONS: ALLERGIES: Home Medications Medication Instructions Recorded Confirmed Type Hydrochlorothiazide [Hydrodiuril] 25 mg PO DAILY 12/19/13 03/27/18 History Atorvastatin Calcium [Lipitor] 10 mg PO HS #30 tab 12/21/13 03/27/18 Rx Escitalopram Oxalate [Lexapro] 20 mg PO DAILY 02/17/15 03/27/18 History Losartan [Cozaar] 50 mg PO DAILY 02/17/15 03/27/18 History Primidone [Mysoline] 100 mg PO HS 02/17/15 03/27/18 History Clopidogrel [Plavix] 75 mg PO HS 02/26/18 03/27/18 History Omeprazole 40 mg PO DAILY #30 capsule. 03/27/18 Rx Allergies Allergy/AdvReac Type Severity Reaction Status Date / Time eletriptan HBr [From Relpax] Allergy Severe Anaphylaxis Verified 03/27/18 11:18 SOCIAL HISTORY: Past tobacco use. FAMILY HISTORY: No family history of ulcerative colitis disease or Crohn's disease. Family history of morbid obesity. No lupus in the family. No reports of stomach or esophageal cancer. REVIEW OF ORGAN SYSTEMS: CONSTITUTIONAL: At height of 5 feet 3 inches, her ideal body weight is 140 po unds. She comes in 266 pounds. Her highest weight was 335 pounds. Her body mass index highest was 59.5. HEENT: Denies any active troubles with vision or hearing. No troubles with swallowing. ENDOCRINE: No diabetes. No hypothyroidism. CARDIOVASCULAR: No reports of palpitations. Past heart attacks and chest pain. RESPIRATORY: Has daytime somnolence. No asthma. GI: Denies any bright red blood per rectum. No diarrhea. Has constipation. MUSCULOSKELETAL: Has lower back pain and joint pain. Has osteoarthritis of the knees. NEURO: No headaches. No seizure disorders. Recent history of stroke with hospitalization less than 1 month ago. PSYCH: Has depression. No suicidal ideation. RHEUMATOLOGIC: No lupus. No rheumatoid arthritis. HEMATOLOGIC: Denies any abnormal bleeding or bruising. No personal history of DVTs. SKIN: No rash. No skin cancer. PHYSICAL EXAM: VITAL SIGNS: Height 5 foot 3 inches, weight 261 pounds. BMI 46.4 Vital Signs Temp 98.0 F 05/15/18 14:50 Pulse 69 05/15/18 14:50 Resp 16 05/15/18 14:50 BP 161/82 05/15/18 14:50 Pulse Ox GENERAL: Well-developed in no acute distress. HEENT: No scleral icterus. Extraocular movements grossly intact. Hears conversational speech. No nasal drainage. NECK: Supple without lymphadenopathy. CHEST: Nonlabored respirations with equal bilateral excursions. CARDIOVASCULAR: Regular rate and regular rhythm. Distal 2+ pulses. ABDOMEN: Obese, soft, nondistended. Left upper quadrant scar with tenderness. Panniculitis moderate of 10 pounds. MUSCULOSKELETAL: No clubbing, cyanosis. Gross strength 5/5 distal lower extremities. NEURO: No focal or lateralizing signs. Cranial nerves 2 through 12 grossly within normal limits. PSYCH: Appropriate affect. Alert and oriented to person, place and time. SKIN: Good skin turgor. Well perfused. STUDIES: EGD FINDINGS: No acute ulceration found along her sleeve. No corkscrewing sleeve gastrectomy. Squamocolumnar junction at 35 cm from the incisors. Presbyesophagus Moderate large gastric reservoir with prior history of sleeve gastrectomy allowing easy retroflexion of the gastroscope to view the lower esophageal valve. LA grade A esophagitis No active duodenitis. Acute gastritis with recent bleed Final Pathologic Diagnosis GASTRIC ANTRUM, BIOPSY: Chronic gastritis. Helicobacter pylori organisms are not identified on routine H+E sections. ASSESSMENT: 1. Morbid obesity due to excess calories 2. Body mass index of 59.5, initial to 46.4 3. Osteoarthritis of the knees. 4. Coronary artery disease 5. Osteoarthritis of the lower back. 6. Hypertensive heart disease. 7. CVA/TIA 8. Gastroesophageal reflux disease 9. Myocardial infarction 10. Hyperlipidemia 11. Pituitary tumor 12. Migraines 13. Depressive disorder 14. Obstructive sleep apnea 15. Panniculitis 16. Uterine cancer 17. Anxiety 18. Depressive disorder 19. Complications from sleeve gastrectomy PLAN: 1. Consent for gastric bypass
[2018-10-09 13:27] VITALS: BP 147/75; PULSE 68; RESP 16; TEMP 98.5; BMI 47.5
== END ==
LOC: BARWHC3 12:41
PROVIDERS: ATTEND Surgery Plastic and Reconstructive Surgery
DX: Z48.815 Encounter for surgical aftercare following surgery on the digestive system (principal); E66.01 Morbid (severe) obesity due to excess calories; M17.0 Bilateral primary osteoarthritis of knee; I25.10 Atherosclerotic heart disease of native coronary artery without angina pectoris; M47.816 Spondylosis without myelopathy or radiculopathy, lumbar region; I11.9 Hypertensive heart disease without heart failure; I63.9 Cerebral infarction, unspecified; G45.9 Transient cerebral ischemic attack, unspecified; K21.9 Gastro-esophageal reflux disease without esophagitis; I21.9 Acute myocardial infarction, unspecified; E78.5 Hyperlipidemia, unspecified; D49.7 Neoplasm of unspecified behavior of endocrine glands and other parts of nervous system; G43.909 Migraine, unspecified, not intractable, without status migrainosus; F32.9 Major depressive disorder, single episode, unspecified; G47.33 Obstructive sleep apnea (adult) (pediatric); M79.3 Panniculitis, unspecified; C55 Malignant neoplasm of uterus, part unspecified; F41.9 Anxiety disorder, unspecified; Z98.84 Bariatric surgery status; Z68.42 Body mass index [BMI] 45.0-49.9, adult; Z79.899 Other long term (current) drug therapy; Z79.02 Long term (current) use of antithrombotics/antiplatelets; Z88.8 Allergy status to other drugs, medicaments and biological substances
CPT/HCPCS: 99211

== ENCOUNTER 2018-11-04 08:00 | Inpatient (IN) | payer MEDICARE ==
[2018-12-02] MEDS ORDERED: MIDAZOLAM 2 MG/2 ML VIAL IV PRN (05:31)
[2018-12-02] MEDS ORDERED: fentaNYL (PF) 50 MCG/ML 2 ML AMP IV PRN (05:31)
[2018-12-02] MEDS ORDERED: CHLORHEXIDINE GLUCONATE 15 ML CUP MUCOUS MEM ONE (06:15)
--- NOTE | 2018-12-02 06:17 | P.GSHP ---
History of Present Illness H&P Date: 12/02/18 DATE OF SERVICE: 12/02/2018 CHIEF COMPLAINT: Complications from sleeve gastrectomy HISTORY OF PRESENT ILLNESS: Alessandra Pardo is a 58-year-old female who had a sleeve gastrectomy with highest weight of 335 pounds, lowest was 235 pounds. Her sleeve was done over 8 years ago in [place] in [place]. She had completed an upper endoscopy showing complications of her sleeve. At height of 5 feet 3 inches, her ideal body weight is 140 pounds. She comes in 249 pounds from 261 pounds, 6 months ago. She lost 12 pounds in 6 months. Her highest weight was 335 pounds. Her body mass index highest was 59.5. Today her BMI is 44.3. PAST MEDICAL HISTORY: 1. Morbid obesity due to excess calories 2. Body mass index of 59.5, initial 3. Osteoarthritis of the knees. 4. Coronary artery disease 5. Osteoarthritis of the lower back. 6. Hypertensive heart disease. 7. CVA/TIA 8. Gastroesophageal reflux disease 9. Myocardial infarction 10. Hyperlipidemia 11. Pituitary tumor 12. Migraines 13. Depressive disorder 14. Obstructive sleep apnea 15. Panniculitis 16. Uterine cancer 17. Anxiety 18. Depressive disorder PAST SURGICAL HISTORY: 1. Sleeve gastrectomy 2. section 3. Tubal ligation 4. Cholecystectomy 5. Heart catheterization 6. Right foot surgery 7. Right knee replacement 8. Upper endoscopy HOME MEDICATIONS: ALLERGIES: Home Medications Medication Instructions Recorded Confirmed Hydrochlorothiazide [Hydrodiuril] 25 mg PO DAILY 12/19/13 11/25/18 Escitalopram Oxalate [Lexapro] 20 mg PO DAILY 02/17/15 11/25/18 Losartan [Cozaar] 50 mg PO DAILY 02/17/15 11/25/18 Primidone [Mysoline] 100 mg PO HS 02/17/15 11/25/18 Aspirin [Nicholas Aspirin EC] 81 mg PO DAILY 05/03/18 11/25/18 Cholecalciferol (Vitamin D3) 2,000 unit PO DAILY 05/03/18 11/25/18 [Vitamin D3] Previous Rx's Medication Instructions Recorded Atorvastatin Calcium [Lipitor] 10 mg PO HS #30 tab 12/21/13 Omeprazole 40 mg PO DAILY #30 capsule. 03/27/18 Acetaminophen Tab [Tylenol] 650 mg PO Q4HR PRN tab 05/04/18 Allergies Allergy/AdvReac Type Severity Reaction Status Date / Time eletriptan HBr [From Relpax] Allergy Severe Anaphylaxis Verified 03/27/18 11:18 SOCIAL HISTORY: Past tobacco use. FAMILY HISTORY: No family history of ulcerative colitis disease or Crohn's disease. Family history of morbid obesity. No lupus in the family. No reports of stomach or esophageal cancer. REVIEW OF ORGAN SYSTEMS: CONSTITUTIONAL: At height of 5 feet 3 inches, her ideal body weight is 140 pounds. Her highest weight was 335 pounds. Her body mass index highest was 59.5. HEENT: Denies any active troubles with vision or hearing. No troubles with swallowing. ENDOCRINE: No diabetes. No hypothyroidism. CARDIOVASCULAR: No reports of palpitations. Past heart attacks and chest pain. RESPIRATORY: Has daytime somnolence. No asthma. GI: Denies any bright red blood per rectum. No diarrhea. Has constipation. MUSCULOSKELETAL: Has lower back pain and joint pain. Has osteoarthritis of the knees. NEURO: No headaches. No seizure disorders. Recent history of stroke with hospitalization less than 8 months ago. PSYCH: Has depression. No suicidal ideation. RHEUMATOLOGIC: No lupus. No rheumatoid arthritis. HEMATOLOGIC: Denies any abnormal bleeding or bruising. No personal history of DVTs. SKIN: No rash. No skin cancer. PHYSICAL EXAM: VITAL SIGNS: Height 5 foot 3 inches, weight 249 pounds. BMI 44.3 GENERAL: Well-developed in no acute distress. HEENT: No scleral icterus. Extraocular movements grossly intact. Hears conversational speech. No nasal drainage. NECK: Supple without lymphadenopathy. CHEST: Nonlabored respirations with equal bilateral excursions. CARDIOVASCULAR: Regular rate and regular rhythm. Distal 2+ pulses. ABDOMEN: Obese, soft, nondistended. MUSCULOSKELETAL: No clubbing, cyanosis. Gross strength 5/5 distal lower extremities. NEURO: No focal or lateralizing signs. Cranial nerves 2 through 12 grossly within normal limits. PSYCH: Appropriate affect. Alert and oriented to person, place and time. SKIN: Good skin turgor. Well perfused. ASSESSMENT: 1. Morbid obesity due to excess calories 2. Body mass index of 59.5, initial to 44.4 3. Osteoarthritis of the knees. 4. Coronary artery disease 5. Osteoarthritis of the lower back. 6. Hypertensive heart disease. 7. CVA/TIA 8. Gastroesophageal reflux disease 9. Myocardial infarction 10. Hyperlipidemia 11. History of pituitary tumor 12. Migraines 13. Depressive disorder 14. Obstructive sleep apnea 15. Panniculitis 16. History of uterine cancer 17. Anxiety 18. Depressive disorder 19. Complications from sleeve gastrectomy PLAN: 1. She is a revision from a sleeve gastrectomy for complications to a gastric bypass. Robotic assisted approach described. 2. [facility] [place] [facility] Data was also reviewed with benefits and risks as described for which she is increased risks. 3. An 8 page second-generation bariatric consent form was reviewed in detail including potential of bleeding, infection, leaks, adequate weight loss, nutritional deficiencies which the patient demonstrated understanding of the risks. She has increased risk for leaks and strictures. 4. A 2 week high-protein low caloric 800 kcal diet described to address hepatomegaly. 5. Preoperative labs including complete metabolic panel and CBC with type and screen recommended. 6. DVT prophylaxis per [place] [facility]. 7. Antibiotic prophylaxis. 8. Inpatient hospitalization anticipated for more than 2 nights. 9. All questions and concerns were addressed with the patient. Past Medical History Past Medical History: Coronary Artery Disease (CAD), Cancer, CVA/TIA, Hyperlipidemia, Hypertension, Myocardial Infarction (MD), Osteoarthritis (OA) Additional Past Medical History / Comment(s): pituitary tumor present & stable since age 26 -, migraines, UTERINE CANCER at age 28 cryo procedure. CVA 2013 affected short term memory and rt arm mild weakness, -ESSENTIAL TREMORS RIGHT SIDE CONTROLLED WITH PRIMADONE, USES A CANE Last Myocardial Infarction Date:: 2005 History of Any Multi-Drug Resistant Organisms: None Reported Past Surgical History: Bariatric Surgery, Section, Cholecystectomy, Heart Catheterization, Joint Replacement, Orthopedic Surgery, Tubal Ligation Additional Past Surgical History / Comment(s): gastric sleeve. RT FOOT SX plate/screw. RT TOTAL KNEE REPLACEMENT. EGD, colonoscopy Past Anesthesia/Blood Transfusion Reactions: No Reported Reaction Additional Past Anesthesia/Blood Transfusion Reaction / Comment(s): CLAUSTROPHOBIA. HAS NEVER RECEIVED ANY BLOOD TRNASFUSIONS Smoking Status: Former smoker - Past Family History Mother Family Medical History: Diabetes Mellitus, Hyperlipidemia Additional Family Medical History / Comment(s): HEART PROBLEMS Father Family Medical History: AFIB, Congestive Heart Failure (CHF), Hyperlipidemia Medications and Allergies Home Medications Medication Instructions Recorded Confirmed Type Hydrochlorothiazide [Hydrodiuril] 25 mg PO DAILY 12/19/13 11/25/18 History Atorvastatin Calcium [Lipitor] 10 mg PO HS #30 tab 12/21/13 11/25/18 Rx Escitalopram Oxalate [Lexapro] 20 mg PO DAILY 02/17/15 11/25/18 History Losartan [Cozaar] 50 mg PO DAILY 02/17/15 11/25/18 History Primidone [Mysoline] 100 mg PO HS 02/17/15 11/25/18 History Omeprazole 40 mg PO DAILY #30 capsule. 03/27/18 11/25/18 Rx Aspirin [Nicholas Aspirin EC] 81 mg PO DAILY 05/03/18 11/25/18 History Cholecalciferol (Vitamin D3) 2,000 unit PO DAILY 05/03/18 11/25/18 History [Vitamin D3] Acetaminophen Tab [Tylenol] 650 mg PO Q4HR PRN tab 05/04/18 11/25/18 Rx Allergies Allergy/AdvReac Type Severity Reaction Status Date / Time eletriptan HBr [From Relpax] Allergy Severe Anaphylaxis Verified 11/25/18 09:13
[2018-12-02] MEDS: LIDOCAINE 1% 20 ML VIAL (10MG/ML) FOR IV START INTRADERMA PRN ×2 (07:22→07:34)
[2018-12-02] MEDS: LACTATED RINGERS 1,000 ML IV SCH ×2 (07:22→07:38)
[2018-12-02] MEDS: ENOXAPARIN 40 MG/0.4 ML SYRINGE SQ ONE ×2 (07:31→12:13)
[2018-12-02] MEDS: DEXAMETHASONE SOD PHOSPHATE 10 MG/ML 1 ML VIAL IV ONE ×2 (07:32→12:12)
[2018-12-02] MEDS: PANTOPRAZOLE 40 MG/10 ML VIAL IV ONE ×2 (07:32→12:13)
[2018-12-02] MEDS ORDERED: ONDANSETRON 4 MG/2 ML VIAL IVP ONE (07:32)
[2018-12-02] MEDS ORDERED: MIDAZOLAM 2 MG/2 ML VIAL ONE (07:34)
[2018-12-02] MEDS ORDERED: HYDROmorphone (PF) 1 MG/ML ONE (07:34)
[2018-12-02] MEDS ORDERED: ONDANSETRON 4 MG/2 ML VIAL ONE (07:34)
[2018-12-02] MEDS ORDERED: LIDOCAINE 1% INJ 10MG/ML (20 ML MDV) ONE (07:34)
[2018-12-02] MEDS ORDERED: PROPOFOL 10 MG/ML 20 ML VIAL IV ONE (07:34)
[2018-12-02] MEDS ORDERED: ROCURONIUM BROMIDE 10 MG/ML 10 ML VIAL IV ONE (07:34)
[2018-12-02] MEDS ORDERED: SUCCINYLCHOLINE CHLORIDE 100 MG/5 ML SYR IV ONE (07:34)
[2018-12-02] MEDS ORDERED: GLYCOPYRROLATE 0.2 MG/ML 2 ML VIAL ONE (07:34)
[2018-12-02] MEDS ORDERED: NEOSTIGMINE 1 MG/ML 10 ML VIAL ONE (07:34)
[2018-12-02] MEDS ORDERED: fentaNYL (PF) 50 MCG/ML 2 ML AMP ONE (07:34)
[2018-12-02] MEDS ORDERED: BUPIVACAINE (PF) 0.5% 30 ML VIAL SQ ONE (08:08)
[2018-12-02] MEDS ORDERED: LACTATED RINGERS 1,000 ML IV ONE ×2 (09:00→10:47)
[2018-12-02] MEDS ORDERED: NALOXONE 0.4 MG/ML 1 ML VIAL IV PRN (10:56)
[2018-12-02] MEDS ORDERED: HYDROmorphone 1 MG/ML 1 ML SYRINGE IVP PRN (10:56)
--- NOTE | 2018-12-02 10:56 | P.OP ---
Date of Procedure: 12/02/18 Description of Procedure: DESCRIPTION OF PROCEDURE(S): SURGEON: BLAYNE WINN MD PREOPERATIVE DIAGNOSES: 1. Morbid obesity due to excess calories 2. Body mass index of 59.5, initial to 44.4 3. Osteoarthritis of the knees. 4. Coronary artery disease 5. Osteoarthritis of the lower back. 6. Hypertensive heart disease. 7. CVA/TIA 8. Gastroesophageal reflux disease 9. Myocardial infarction 10. Hyperlipidemia 11. History of pituitary tumor 12. Migraines 13. Depressive disorder 14. Obstructive sleep apnea 15. Panniculitis 16. History of uterine cancer 17. Anxiety 18. Depressive disorder 19. 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 Morbid obesity due to excess calories 2. Body mass index of 59.5, initial to 44.4 3. Osteoarthritis of the knees. 4. Coronary artery disease 5. Osteoarthritis of the lower back. 6. Hypertensive heart disease. 7. CVA/TIA 8. Gastroesophageal reflux disease 9. Myocardial infarction 10. Hyperlipidemia 11. History of pituitary tumor 12. Migraines 13. Depressive disorder 14. Obstructive sleep apnea 15. Panniculitis 16. History of uterine cancer 17. Anxiety 18. Depressive disorder 19. 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 Robotic assisted da Rex Xi laparoscopic Kyle-en-Y gastric bypass, 100cm antecolic antegastric Kyle limb, with 21 mm EEA. 2. Intraoperative esophagogastrojejunoscopy. ANESTHESIA: General with local ESTIMATED BLOOD LOSS: 10 mL SPECIMENS REMOVED: None. COMPLICATIONS: NONE. INDICATIONS: Alessandra Pardo is a 58-year-old female who has a past history of a sleeve gastrectomy. Her highest weight was 335 pounds, lowest was 235 pounds. Her sleeve was done over 8 years ago, 2009 in [place] in [place]. She had completed an upper endoscopy showing complications of her sleeve. At height of 5 feet 3 inches, her ideal body weight is 140 pounds. She comes in 249 pounds from 261 pounds, 6 months ago. She lost 12 pounds in 6 months. Her highest weight was 335 pounds. Her body mass index highest was 59.5. Today her BMI is 44.3. She now presents to undergo conversion to robotic assisted gastric bypass. A second-generation bariatric consent form was described in detail including the possibility of protein malnutrition, leaks, gastrojejunal stricture, venous thrombosis, need for further surgery for which she demonstrated understanding. Benefits and risks of the procedure were described at length. Informed consent was obtained. DESCRIPTION: The patient was brought into the operating room theater. She was placed on a split leg table. Preoperatively she had received Lovenox subcutaneously for DVT prophylaxis. Additionally she had undergone Peridex oral solution as an oral decontaminant. After general induction, the abdomen was prepped and draped in standard sterile fashion. Ioban draping was placed along the abdomen. A robotic da Rex Xi system was prepped and primed. The xiphoid to umbilicus was measured of 19.5 cm. Proposed port sites were marked with indelible marker along the anterior axillary line bilaterally, mid clavicular line bilaterally with each port marked 10 cm from each other. The power plant assistant port was marked along the right lateral lower abdominal wall. The robotic stapler port was marked for the right midclavicular line including along the left midclavicular line. A 5 mm 0 degrees laparoscopic trocar entry was performed along the left upper quadrant. The abdomen was insufflated to 15 mmHg pressure, which she tolerated well. Diagnostic laparoscopy demonstrated no injury to bowel, viscera, or mesentery. The liver surface was unremarkable. No evidence of large prominent hiatal hernia was encountered. No small bowel dilation was identified or evidence of bowel obstruction. An 8 mm camera port was placed left lateral to the umbilicus at the epigastrium, 12 cm distal to the xiphoid. Next, 12-mm robot stapler port was placed along the right mid abdomen. An 12 mm port was exchanged along the left upper quadrant. An 8 mm port was placed on the left lateral abdominal wall under direct localization. Please note that the ports were placed 18 to 20 cm away from the target anatomy of the stomach. Care was taken to check that each robotic arm was safely away from collision with the bed or the patient. At the epigastrium, a medium sized Eda liver retractor was placed under direct visualization with the Iron Structural Test Engineer placed under the right shoulder of the patient. The patient was repositioned in reverse Trendelenburg position at 16-degress after lowering the bed. The robot was docked over the patient. Using grasper for arm 3, a grasper for arm 1, including vessel sealer for arm 4, the robotic system was docked and primed as described. Instruments were interchanged by the power plant assistant including endoscissors, the needle regional dedicated truck driver, and stapler. I had sat at the console. Next, the transverse mesocolon was reflected into the upper abdomen preparing for the jejunojejunostomy portion of the case. The ligament of Treitz was identified and measured 60 cm antegrade and marked using 2-0 Silk. The jejunum was divided at the 60 cm point using 60-mm white loads above the suture measurement. The biliopancreatic limb was held in place. The Kyle limb was measured 100 cm in an antegrade fashion to avoid tension along the proposed gastrojejunal anastomosis. At 100 cm along the anti-mesenteric border of the Kyle limb, a jejunojejunostomy was proposed whereby enterotomies were created along the biliopancreatic limb including the Kyle limb using a Bovie cautery. A stay suture of 2-0 Silk was placed to align and create the anastomosis. The enterotomies along the anti-mesenteric borders were created followed by unidirectional fire from the patient's right side using 60 mm white load Smart technology robotic stapler. The jejunojejunostomy was found to be hemostatic. The enterotomy was closed after horizontal mattress stitch of 2-0 silk used to elevate the enterotomy followed by closure with the robotic stapler white and blue loads. The jejunal limb was temporarily tacked along the left upper quadrant. Attention was now brought to the creation of the gastrojejunostomy. Along the lesser curvature of the stomach between the second and third veins and above the angularis incisura, dissection was made along the retrogastric space to allow first firing of the robotic staple. The sleeve was divided proximal to the angularis incisura. The robot was temporarily undocked for completion of the gastrojejunostomy using an Orvil. The patient was then prepared for placement of a Orvil. The patient was Mallampati 2. A 21-mm Orvil was selected for placement by the nurse tax auditor. The Orvil tubing was placed anterior to the staple line of the gastric pouch and brought out through the left inferior lateral port. The Orvil was then carefully and successfully navigated with the help of the nurse tax auditor into the gastric pouch. The sutures were identified and divided. The tubing was from the 21 mm anvil. Using aseptic technique all ins truments including port sites were exchanged. As the Orvil had been placed, the blind jejunal limb was brought proximally into the upper abdomen. The transverse mesocolon was minimally bulky and undisturbed. No torsion was found upon the Kyle limb. No tension was identified as the limb was brought along the upper abdomen. The blind jejunal limb was opened using Bovie cautery. The 21-mm EEA stapler was brought through the left anterior lateral port site from the left side. Please note that the trocars from the Orvil tubing, including the port, were removed to minimize contamination from the oral leroy. The EEA stapler was brought through the open jejunal limb and its needle was deployed at the antimesenteric border where the anvil were mated for approximately 1 minute upon firing. The stapler was removed after irrigating the shaft of the instrument with warm normal saline. Donuts were found to be intact on both sides. The da Rex Xi robot was then re-docked. The open jejunal limb defect was closed using 60 mm white loads after releasing any tension from the blind jejunal limb. Care was taken to avoid any long blind limb to avoid candycane syndrome. Reinforcement sutures were placed along the gastrojejunal anastomosis. The Yun and jejunojejunostomy mesenteric defects were obliterated by her intra-abdominal fat. I then went to the head of the bed to perform the esophagogastrojejunoscopy and a leak test. An Olympus gastroscope was passed along the posterior oropharynx which was unremarkable for any injury to the vocal cords. The scope was passed down to the proximal portion of the pouch, whereby no active bleeding was encountered. Excellent visualization of the gastrojejunostomy anastomosis, including the Kyle limb was encountered with endoscopic image obtained. The anastomosis was found to be patent. The gastrointestinal tract was desufflated. No evidence of intraoperative leak was encountered as the gastric pouch and anastomosis were submerged under normal saline solution. The robot was then undocked. I then went back to the bedside of the patient, whereby with coordinated effort of the power plant assistant, irrigation was aspirated from the upper abdominal cavity. Tisseel was placed circumferentially over the anastomosis of the gastrojejunostomy. The fascial defect of the EEA stapler was closed using Arthur Caraballo and 0 Vicryl. All instruments and pneumoperitoneum were evacuated from the abdominal cavity. The port correlating with the EEA stapler device was copiously irrigated normal saline solution and hydrogen peroxide. The rest of incisions were reapproximated using by 4-0 Monocryl in an interrupted subcuticular fashion. Local anesthetic was infiltrated along the skin for postop analgesia. Liquid glue was applied to the skin. OptiFoam dressing was placed along the EEA stapler site. At the end of the procedure, needle, sponge and instrument count had been verified correct by the surgical elastic knitter hand frame. She had tolerated the procedure well and was extubated and taken to the postanesthesia unit in stable condition. Operative Findings: 1. No intra-abdominal adhesions identified along the epigastrium or lower pelvis 2. Bypass performed using 100 cm kyle limb secondary to avoid increased tension at 150 cm. 3. Dunn defect and jejunojejunostomy defect obliterated by moderate intra- abdominal fat. 4. Leak test negative with gastrojejunal anastomosis patent and hemostatic. 5. Robotic stapler, total 6 loads, 2 blue, 3 whites, and 1 black loads 60 mm used. 6. Gastric sleeve resected using black loads proximal to angularis incisura 7. Anastomosis reinforced at 9:00, 12:00 and 3 o'clock position 8. Console time 1 hr 34 min
[2018-12-02] MEDS ORDERED: diphenhydrAMINE 50 MG/ML 1 ML VIAL IVP PRN (11:01)
[2018-12-02] MEDS ORDERED: HYOSCYAMINE ORAL DROPS 1.875 MG/15 ML BOTTLE PO PRN (11:01)
[2018-12-02] MEDS ORDERED: diphenhydrAMINE 50 MG/ML 1 ML VIAL IVP ONE (11:40)
[2018-12-02] MEDS ORDERED: HYDROmorphone 1 MG/ML 1 ML SYRINGE IVP ONE ×2 (11:42→11:47)
[2018-12-02] MEDS: ALBUTEROL NEBULIZED 2.5 MG/3 ML INHALATION SCH ×3 (11:51→19:20)
[2018-12-02] MEDS ORDERED: ACETAMINOPHEN IV (For NPO) 1,000 MG/100 ML VIAL IV SCH (12:00)
[2018-12-02] MEDS: ACETAMINOPHEN IV (For NPO) 1,000 MG in EMPTY BAG 1 BAG IVPB SCH ×3 (12:14→18:24)
[2018-12-02] MEDS: 0.9% NACL WITH KCL 20 MEQ/L 1,000 ML IV SCH ×3 (12:40→21:38)
[2018-12-02] MEDS: ONDANSETRON 4 MG/2 ML VIAL IVP SCH ×2 (15:19→18:18)
[2018-12-02] MEDS: SIMETHICONE 40 MG/0.6 ML DROPS 2,000 MG/30 ML BOTTLE PO SCH ×2 (15:22→18:23)
[2018-12-02] MEDS: HYDROcodone/APAP 15 ML SOLUTION PO PRN (18:27)
[2018-12-03] MEDS: ACETAMINOPHEN IV (For NPO) 1,000 MG in EMPTY BAG 1 BAG IVPB SCH ×4 (00:28→22:03)
[2018-12-03] MEDS: SIMETHICONE 40 MG/0.6 ML DROPS 2,000 MG/30 ML BOTTLE PO SCH ×4 (00:29→18:07)
[2018-12-03] MEDS: ONDANSETRON 4 MG/2 ML VIAL IVP SCH ×4 (00:29→18:07)
[2018-12-03] MEDS: 0.9% NACL WITH KCL 20 MEQ/L 1,000 ML IV SCH ×3 (05:25→18:07)
[2018-12-03] MEDS: LACTATED RINGERS 1,000 ML IV SCH (06:19)
[2018-12-03 08:45] LABS: Calcium 7.9 mg/dL (8.4-10.2); Magnesium 1.6 mg/dL (1.6-2.3); Phosphorus 3.5 mg/dL (2.5-4.5); Potassium 3.8 mmol/L (3.5-5.1)
[2018-12-03 08:47] LABS: Basophils % (A) 0 %; Eosinophils % (A) 1 %; HCT 36.1 % (34.0-46.0); HGB 12.1 gm/dL (11.4-16.0); Lymphocytes % (A) 12 %; MCH 30.7 pg (25.0-35.0); MCHC 33.5 g/dL (31.0-37.0); MCV 91.6 fL (80.0-100.0); Mean Platelet Volume 8.1; Monocytes # (A) 0.4 k/uL (0-1.0); Monocytes % (A) 4 %; Neutrophils # (A) 6.7 k/uL (1.3-7.7); Neutrophils % (A) 81 %; Platelet Count 137 k/uL (150-450); RBC 3.93 m/uL (3.80-5.40); RDW 13.4 % (11.5-15.5); WBC 8.3 k/uL (3.8-10.6)
[2018-12-03] MEDS: ALBUTEROL NEBULIZED 2.5 MG/3 ML INHALATION SCH ×4 (08:54→19:36)
[2018-12-03] MEDS: PANTOPRAZOLE 40 MG/10 ML VIAL IV SCH (09:15)
[2018-12-03] MEDS: ENOXAPARIN 40 MG/0.4 ML SYRINGE SQ SCH (09:15)
[2018-12-03] MEDS: HYDROcodone/APAP 15 ML SOLUTION PO PRN ×2 (09:33→15:49)
[2018-12-03] MEDS ORDERED: POTASSIUM CHLORIDE ER 20 MEQ TAB.ER PO STA (13:16)
--- NOTE | 2018-12-03 13:18 | P.PN ---
Subjective Progress Note Date: 12/03/18 CHIEF COMPLAINT: obesity HISTORY OF PRESENT ILLNESS: 58-year-old female who underwent robotic-assisted laparoscopic Shiraz-en-Y gastric bypass. Postoperative day #1. Patient examined this morning. She is laying in bed. She reports she has not been out of bed yet today or yesterday due to pain. She reports improved pain today. Patient tolerating clear liquid diet. Denies nausea. Donahue catheter discontinued this morning. WBC 8.3. Hemoglobin 12.1. Potassium 3.8. Magnesium 1.6. PHYSICAL EXAM: VITAL SIGNS: Currently stable. GENERAL: Well-developed in no acute distress. HEENT: No sclera icterus. Extraocular movements grossly intact. Moist buccal mucosa. Head is atraumatic, normocephalic. Hears conversational speech. No nasal drai nage. NECK: Supple without lymphadenopathy. CHEST: Non-labored respirations and equal bilateral excursions. CARDIOVASCULAR: Regular rate with regular rhythm. Palpable 2+ radial pulses. ABDOMEN: Soft. Nondistended. Obese. Surgical incision sites clean dry and intact without drainage or signs of infection. MUSCULOSKELETAL: No clubbing, cyanosis or edema. NEUROLOGIC: No focal or lateralizing signs. Cranial nerves II through XII grossly intact. PSYCH: Appropriate affect. Alert and oriented to person, place and time. SKIN: Well perfused. Good skin turgor. ASSESSMENT: 1. Morbid obesity due to excess calories 2. Body mass index of 59.5, initial 3. Osteoarthritis of the knees. 4. Coronary artery disease 5. Osteoarthritis of the lower back. 6. Hypertensive heart disease. 7. CVA/TIA 8. Gastroesophageal reflux disease 9. Myocardial infarction 10. Hyperlipidemia 11. Pituitary tumor 12. Migraines 13. Depressive disorder 14. Obstructive sleep apnea 15. Panniculitis 16. Uterine cancer 17. Anxiety 18. Depressive disorder PLAN: 1. Continue bariatric clear liquid diet 2. Pain control 3. Incentive spirometer 10 times an hour 4. Activity as tolerated. Patient encouraged to be out of bed and ambulatory today. PT/OT on consult 5. Replace magnesium 3 g IV piggyback. 6. Replace potassium. 20 mEq potassium chloride. Dissolve medication into smaller particles with 4 oz of water before administering. Do not crush. 7. Anticipate discharge home tomorrow Nurse practitioner note has been reviewed by physician. Signing provider agrees with the documented findings, assessment, and plan of care. Objective - Vital Signs Vital signs: Vital Signs Temp 98.9 F 12/03/18 07:00 Pulse 64 12/03/18 12:06 Resp 17 12/03/18 07:40 BP 120/75 12/03/18 07:00 Pulse Ox 98 12/03/18 07:00 Intake & Output 12/02/18 12/03/18 12/03/18 18:59 06:59 18:59 Intake Total 2550 230 80 Output Total 130 650 Balance 2420 -420 80 Intake: IV 2250 Intake, IV Titration 300 200 Amount ACETAMINOPHEN IV (For NPO 200 ) 1,000 mg In Empty Bag 1 bag @ 400 mls/hr IVPB Q6HR CON[facility] Rx#:[id number] ceFAZolin 2 gm In Sodium 300 Chloride 0.9% 50 ml @ 100 mls/hr IVPB Q8HR CON[facility] Rx# :[id number] Oral 30 80 Output: Urine 120 650 Estimated Blood Loss 10 Other: Voiding Method Indwelling Catheter Indwelling Catheter Bedside Commode - Labs CBC & Chem 7: 12/03/18 07:51 12/03/18 07:51 Labs: Abnormal Lab Results - Last 24 Hours (Table) 12/03/18 12/03/18 Range/Units 07:51 07:51 Plt Count 137 L (150-450) k/uL Calcium 7.9 L (8.4-10.2) mg/dL
[2018-12-03 13:50] VITALS: BMI 44.2
[2018-12-03] MEDS: MAGNESIUM SULFATE-D5W PMX 1 GM in DEXTROSE/WATER 1 100ML.BAG IVPB SCH ×3 (15:50→20:31)
[2018-12-04] MEDS: SIMETHICONE 40 MG/0.6 ML DROPS 2,000 MG/30 ML BOTTLE PO SCH ×3 (00:16→12:45)
[2018-12-04] MEDS: ONDANSETRON 4 MG/2 ML VIAL IVP SCH ×3 (00:16→12:45)
[2018-12-04] MEDS: HYDROcodone/APAP 15 ML SOLUTION PO PRN ×2 (00:18→06:06)
[2018-12-04] MEDS: ACETAMINOPHEN IV (For NPO) 1,000 MG in EMPTY BAG 1 BAG IVPB SCH ×2 (02:57→08:48)
[2018-12-04] MEDS: 0.9% NACL WITH KCL 20 MEQ/L 1,000 ML IV SCH ×2 (04:30→12:50)
[2018-12-04] MEDS: LACTATED RINGERS 1,000 ML IV SCH (06:36)
[2018-12-04] MEDS: ALBUTEROL NEBULIZED 2.5 MG/3 ML INHALATION SCH ×2 (07:49→11:41)
[2018-12-04] MEDS ORDERED: BISACODYL 5 MG TABLET.DR PO PRN (08:00)
[2018-12-04 08:22] VITALS: BP 105/68; RESP 17; TEMP 98.7
[2018-12-04 08:47] LABS: Potassium 3.8 mmol/L (3.5-5.1)
[2018-12-04] MEDS: PANTOPRAZOLE 40 MG/10 ML VIAL IV SCH (08:47)
[2018-12-04] MEDS: ENOXAPARIN 40 MG/0.4 ML SYRINGE SQ SCH (08:47)
[2018-12-04 12:17] VITALS: PULSE 74
--- NOTE | 2018-12-04 13:48 | P.DS ---
Providers Date of admission: 12/02/18 06:27 Expected date of discharge: 12/04/18 Attending physician: Nita Smith Primary care physician: Raymond Mcgovern [facility] Course: 58-year-old female who underwent robotic-assisted laparoscopic Shiraz-en-Y gastric bypass. Patient is doing well postoperatively without any immediate complications. She is tolerating clear liquid diet. Pain is controlled on oral medications. Vital signs have been stable. Patient is stable for discharge home today per Dr. Smith. Please see EMR for further hospital course details. Discharge Diagnosis: 1. Morbid obesity due to excess calories 2. Body mass index of 59.5, initial 3. Osteoarthritis of the knees. 4. Coronary artery disease 5. Osteoarthritis of the lower back. 6. Hypertensive heart disease. 7. CVA/TIA 8. Gastroesophageal reflux disease 9. Myocardial infarction 10. Hyperlipidemia 11. Pituitary tumor 12. Migraines 13. Depressive disorder 14. Obstructive sleep apnea 15. Panniculitis 16. Uterine cancer 17. Anxiety 18. Depressive disorder Nurse practitioner note has been reviewed by physician. Signing provider agrees with the documented findings, assessment, and plan of care. Patient Condition at Discharge: Stable Plan - Discharge Summary Discharge Rx Participant: Yes New Discharge Prescriptions: New Acetaminophen Tab [Tylenol Tab] 650 mg PO Q4H PRN #30 tablet PRN Reason: Pain Bisacodyl [Dulcolax] 5 mg PO DAILY PRN #10 tablet.dr PRN Reason: Constipation Simethicone 40 mg/0.6 ml Drops [Mylicon Drops] 40 mg PO PCHS PRN #30 ml PRN Reason: gas Omeprazole 40 mg PO DAILY #30 cap Ondansetron Odt [Zofran Odt] 4 mg PO Q8HR PRN #9 tab PRN Reason: Nausea Losartan [Cozaar] 50 mg PO DAILY #30 tab Atorvastatin [Lipitor] 10 mg PO DAILY #30 tab Continue Primidone [Mysoline] 100 mg PO HS Escitalopram Oxalate [Lexapro] 20 mg PO DAILY Discontinued Hydrochlorothiazide [Hydrodiuril] 25 mg PO DAILY Atorvastatin Calcium [Lipitor] 10 mg PO HS #30 tab Losartan [Cozaar] 50 mg PO DAILY Aspirin [[place] Aspirin EC] 81 mg PO DAILY Cholecalciferol (Vitamin D3) [Vitamin D3] 2,000 unit PO DAILY No Action Acetaminophen Tab [Tylenol] 650 mg PO Q4HR PRN tab PRN Reason: Fever And/ Or Pain Discharge Medication List Escitalopram Oxalate [Lexapro] 20 mg PO DAILY 02/17/15 [History] Primidone [Mysoline] 100 mg PO HS 02/17/15 [History] Acetaminophen Tab [Tylenol] 650 mg PO Q4HR PRN tab 05/04/18 [Rx] Acetaminophen Tab [Tylenol Tab] 650 mg PO Q4H PRN #30 tablet 12/03/18 [Rx] Bisacodyl [Dulcolax] 5 mg PO DAILY PRN #10 tablet. 12/03/18 [Rx] Omeprazole 40 mg PO DAILY #30 cap 12/03/18 [Rx] Ondansetron Odt [Zofran Odt] 4 mg PO Q8HR PRN #9 tab 12/03/18 [Rx] Simethicone 40 mg/0.6 ml Drops [Mylicon Drops] 40 mg PO PCHS PRN #30 ml 12/03/18 [Rx] Atorvastatin [Lipitor] 10 mg PO DAILY #30 tab 12/04/18 [Rx] Losartan [Cozaar] 50 mg PO DAILY #30 tab 12/04/18 [Rx] Follow up Appointment(s)/Referral(s): [facility]ariatric Center,. [NON-STAFF] - 12/06/18 Activity/Diet/Wound Care/Special Instructions: Tylenol as needed for pain. BREAK TABLETS IN HALF OR DISSOLVE IN WATER BEFORE TAKING No lifting over 4 pounds You may shower. No soaking or tub baths Very light activity until you are reevaluated at your follow up appointment with your surgeon Liquid diet per bariatric dietitian instructions (see handouts given to you) Discharge Disposition: HOME SELF-CARE
== END 2018-12-04 14:44 | disposition home or self-care (01) | DRG 621 ==
LOC: 2ORMAIN 12-02 06:27 → 4SSUR 12-02 10:57
PROVIDERS: ADMIT Surgery Plastic and Reconstructive Surgery; ATTEND Surgery Plastic and Reconstructive Surgery
PROC: 0DN64ZZ Release Stomach, Percutaneous Endoscopic Approach (ICD-10-PCS; 2018-12-02)
PROC: 8E0W8CZ Robotic Assisted Procedure of Trunk Region, Via Natural or Artificial Opening Endoscopic (ICD-10-PCS; 2018-12-02)
PROC: 0DJ08ZZ Inspection of Upper Intestinal Tract, Via Natural or Artificial Opening Endoscopic (ICD-10-PCS; 2018-12-02)
PROC: 0D164ZA Bypass Stomach to Jejunum, Percutaneous Endoscopic Approach (ICD-10-PCS; principal; 2018-12-02 07:40)
DX: E66.01 Morbid (severe) obesity due to excess calories (principal); Z85.42 Personal history of malignant neoplasm of other parts of uterus; I25.2 Old myocardial infarction; D49.7 Neoplasm of unspecified behavior of endocrine glands and other parts of nervous system; E78.5 Hyperlipidemia, unspecified; F32.9 Major depressive disorder, single episode, unspecified; F41.9 Anxiety disorder, unspecified; G25.0 Essential tremor; G43.909 Migraine, unspecified, not intractable, without status migrainosus; Z86.73 Personal history of transient ischemic attack (TIA), and cerebral infarction without residual deficits; G47.33 Obstructive sleep apnea (adult) (pediatric); Z99.89 Dependence on other enabling machines and devices; I11.9 Hypertensive heart disease without heart failure; I25.10 Atherosclerotic heart disease of native coronary artery without angina pectoris; K21.9 Gastro-esophageal reflux disease without esophagitis; K66.0 Peritoneal adhesions (postprocedural) (postinfection); M17.0 Bilateral primary osteoarthritis of knee; M47.9 Spondylosis, unspecified; M79.3 Panniculitis, unspecified; Z68.41 Body mass index [BMI] 40.0-44.9, adult; Z79.82 Long term (current) use of aspirin; Z79.899 Other long term (current) drug therapy; Z82.49 Family history of ischemic heart disease and other diseases of the circulatory system; Z83.3 Family history of diabetes mellitus; Z87.891 Personal history of nicotine dependence; Z96.651 Presence of right artificial knee joint
CPT/HCPCS: 80051; 82310; 82565; 83735; 84100; 84132; 84520; 85025; 86850; 86900; 86901; 94640; 94760

== ENCOUNTER → 2018-11-19 | Outpatient (CLI) | payer MEDICARE ==
[2018-11-19 15:16] LABS: Basophils # (A) 0.1 k/uL (0-0.2); Basophils % (A) 1 %; Eosinophils # (A) 0.2 k/uL (0-0.7); Eosinophils % (A) 4 %; HGB 13.3 gm/dL (11.4-16.0); Lymphocytes # (A) 1.4 k/uL (1.0-4.8); Lymphocytes % (A) 28 %; MCH 29.5 pg (25.0-35.0); MCHC 32.5 g/dL (31.0-37.0); MCV 90.8 fL (80.0-100.0); Mean Platelet Volume 8.1; Monocytes # (A) 0.3 k/uL (0-1.0); Monocytes % (A) 5 %; Neutrophils # (A) 2.9 k/uL (1.3-7.7); Neutrophils % (A) 59 %; Platelet Count 163 k/uL (150-450); RBC 4.52 m/uL (3.80-5.40); RDW 14.2 % (11.5-15.5)
[2018-11-19 18:29] LABS: African American GFR (CKD) 64.5 (60.0-200.0); Albumin 3.7 g/dL (3.80-4.90); Albumin/Globulin Ratio 2.47 (1.60-3.17); Anion Gap 7.1 mmol/L (4.00-12.00); BUN/Creat Ratio 17.27 Ratio (12.00-20.00); Calcium 9.1 mg/dL (8.7-10.3); Carbon Dioxide 27.9 mmol/L (21.6-31.8); Globulin 1.5 g/dL (1.6-3.3); Potassium 4.4 mmol/L (3.5-5.5); Total Bilirubin 1.2 mg/dL (0.2-1.2); Total Protein 5.2 g/dL (6.2-8.2)
== END | disposition home or self-care (01) ==
LOC: LABWHC1 14:18
PROVIDERS: ATTEND Surgery Plastic and Reconstructive Surgery
DX: Z01.812 Encounter for preprocedural laboratory examination (principal); Z01.818 Encounter for other preprocedural examination
CPT/HCPCS: 36415; 80053; 85025

== ENCOUNTER → 2018-12-05 | Outpatient (CLI) | payer MEDICARE ==
--- NOTE | 2018-12-05 15:06 | P.PN ---
Subjective Progress Note Date: 12/05/18 DATE OF SERVICE: 12/05/2018 CHIEF COMPLAINT: Conversion from sleeve gastrectomy to gastric bypass HISTORY OF PRESENT ILLNESS: Alessandra Pardo is a 58-year-old female status post sleeve to gastric bypass, 12/02/2018. She is POD 4. She complains of moderate incisional pain of the left upper quadrant which is to be expected. She did not use icing as instructed upon discharge. Otherwise she is tolerating fluids. No fevers or chills. She is afebrile. She is passing flatus and having bowel movements. At height of 5 feet 3 inches, her ideal body weight is 140 pounds. She comes in 263 pounds from 267 pounds, 1 month ago. She has lost 4 pounds in 1 month. Her highest weight was 335 pounds. Her body mass index highest was 59.5. Today her BMI is 46.8. She has lost 72 pounds. Her percent excess weight loss is 37%. She is 123 pounds overweight. PHYSICAL EXAM: VITAL SIGNS: Height 5 foot 3 inches, weight 263 pounds. BMI 46.8 Vital Signs Temp 99.1 F 12/05/18 15:06 Pulse 79 12/05/18 15:06 Resp BP 166/89 12/05/18 15:06 Pulse Ox GENERAL: Well-developed in no acute distress. HEENT: No scleral icterus. Extraocular movements grossly intact. Hears conversational speech. No nasal drainage. NECK: Supple without lymphadenopathy. CHEST: Nonlabored respirations with equal bilateral excursions. CARDIOVASCULAR: Regular rate and regular rhythm. Distal 2+ pulses. ABDOMEN: Obese, soft. No cellulitis or infection. MUSCULOSKELETAL: No clubbing, cyanosis. Gross strength 5/5 distal lower extremities. NEURO: No focal or lateralizing signs. Cranial nerves 2 through 12 grossly within normal limits. PSYCH: Appropriate affect. Alert and oriented to person, place and time. SKIN: Good skin turgor. Well perfused. ASSESSMENT: 1. Morbid obesity due to excess calories 2. Body mass index of 59.5 to 46.8 3. Depressive disorder 4. Complications from sleeve gastrectomy 5. Status post-gastric bypass PLAN: 1. We'll prescribe liquid [place] for 3 days. 2. Follow-up in one week.
== END ==
CPT/HCPCS: 99211

== ENCOUNTER → 2018-12-11 | Outpatient (CLI) | payer MEDICARE ==
[2018-12-11 13:31] VITALS: BP 114/76; PULSE 76; TEMP 98.1; BMI 43.5
--- NOTE | 2019-01-15 15:15 | P.PN ---
Subjective Progress Note Date: 12/11/18 DATE OF SERVICE: 12/11/2018 CHIEF COMPLAINT: Complications from sleeve gastrectomy HISTORY OF PRESENT ILLNESS: Alessandra Pardo is a 58-year-old female who is status revision from sleeve to gastric bypass, 12/02/18. She reports right knee pain particularly of the lower leg. She has no edema in either legs. Her blood pressure is under 120 systolic. Overall weight loss at least 20 pounds in 2 weeks. She is drinking adequately. No reports of abdominal pain. At height of 5 feet 3 inches, her ideal body weight is 140 pounds. She comes in 245 pounds from 267 pounds, 2 months ago. She has lost 22 pounds in 2 months. Her highest weight was 335 pounds. Her body mass index highest was 59.5. Today her BMI is 43.5. She has lost 90 pounds. Her percent excess weight loss is 46 %. She is 105 pounds overweight. PHYSICAL EXAM: VITAL SIGNS: Height 5 foot 3 inches, weight 245 pounds. BMI 43.5 Vital Signs Temp 98.1 F 12/11/18 13:13 Pulse 76 12/11/18 13:13 Resp BP 114/76 12/11/18 13:13 Pulse Ox GENERAL: Well-developed in no acute distress. HEENT: No scleral icterus. Extraocular movements grossly intact. Hears conversational speech. No nasal drainage. NECK: Supple without lymphadenopathy. CHEST: Nonlabored respirations with equal bilateral excursions. CARDIOVASCULAR: Regular rate and regular rhythm. Distal 2+ pulses. ABDOMEN: Obese, soft, nondistended. No sign of infection. MUSCULOSKELETAL: No clubbing, cyanosis. Gross strength 5/5 distal lower extre mities. No edema NEURO: No focal or lateralizing signs. Cranial nerves 2 through 12 grossly within normal limits. PSYCH: Appropriate affect. Alert and oriented to person, place and time. SKIN: Good skin turgor. Well perfused. ASSESSMENT: 1. Morbid obesity due to excess calories 2. Body mass index of 59.5, initial to 46.4 3. Osteoarthritis of the knees. 4. Coronary artery disease 5. Osteoarthritis of the lower back. 6. Hypertensive heart disease. 7. History of CVA/TIA 8. Gastroesophageal reflux disease 9. Myocardial infarction 10. Hyperlipidemia 11. Pituitary tumor 12. Migraines 13. Depressive disorder 14. Obstructive sleep apnea 15. Panniculitis 16. Uterine cancer 17. Anxiety 18. Depressive disorder 19. 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 Status post gastric bypass PLAN: 1. She's been asked to discontinue her hydrochlorothiazide for risk of dehydration 2. She will take all home blood pressure medications. 3. Follow-up in 2 weeks.
== END | disposition home or self-care (01) ==
LOC: BARWHC3 11:12
PROVIDERS: ATTEND Surgery Plastic and Reconstructive Surgery
DX: E66.01 Morbid (severe) obesity due to excess calories (principal); M25.561 Pain in right knee; Z68.41 Body mass index [BMI] 40.0-44.9, adult
CPT/HCPCS: 97803; G0463; 99211

== ENCOUNTER → 2018-12-11 | Outpatient (CLI) | payer MEDICARE ==
--- NOTE | 2018-12-11 11:14 | US ---
EXAMINATION TYPE: US venous doppler duplex LE RT DATE OF EXAM: 12/11/2018 11:08 AM COMPARISON: US 2014 CLINICAL HISTORY: M79.661 Pain in right lower limb. Right leg pain x 2 days SIDE PERFORMED: Right TECHNIQUE: The lower extremity deep venous system is examined utilizing real time linear array sonog rom with graded compression, doppler sonography and color-flow sonography. VESSELS IMAGED: External Iliac Vein (EIV) Common Femoral Vein Deep Femoral Vein Greater Saphenous Vein * Femoral Vein Popliteal Vein Small Saphenous Vein * Proximal Calf Veins (* superficial vessels) Grayscale, color doppler, spectral doppler imaging performed of the deep veins of the right lower ext remity. There is normal flow, compressibility, vascular waveforms. Right Leg: Appears negative for DVT IMPRESSION: No sonographic evidence of deep venous thrombosis within the right lower extremity.
--- NOTE | 2018-12-11 13:09 | P.PN ---
Subjective Progress Note Date: 12/11/18 Patient seen and evaluated in the bariatric center. She reports right knee pain particularly of the lower leg. No edema in either legs. Blood pressure is under 120 systolic. She's been asked to discontinue her hydrochlorothiazide. She will take all home blood pressure medications. No sign of infection. She is drinking adequately. No reports of abdominal pain. Follow-up in 2 weeks. Overall weight loss at least 20 pounds in 2 weeks.
== END | disposition home or self-care (01) ==
LOC: RADUSWWP 10:47
PROVIDERS: ATTEND Surgery Plastic and Reconstructive Surgery
DX: M79.661 Pain in right lower leg (principal); Z88.8 Allergy status to other drugs, medicaments and biological substances

== ENCOUNTER → 2018-12-25 | Outpatient (CLI) | payer MEDICARE ==
[2018-12-25 14:37] VITALS: BP 125/62; PULSE 71; RESP 16; TEMP 98.4; BMI 42.1
--- NOTE | 2018-12-25 15:11 | P.PN ---
Subjective Progress Note Date: 12/25/18 DATE OF SERVICE: 12/25/2018 CHIEF COMPLAINT: Status post gastric bypass HISTORY OF PRESENT ILLNESS: Alessandra Pardo is a 58-year-old female who is status revision from sleeve to gastric bypass, 12/02/18. She is almost 1 month out. She was 272 pounds this month. Today she comes in 238 pounds. She has lost over 30+ pounds. She is doing 70 g of protein daily. No nausea or vomiting. She is accompanied by her who also had weight loss surgery. She is on pureed diet. She is tolerating sweet potatos. At height of 5 feet 3 inches, her ideal body weight is 140 pounds. She comes in 238 pounds from 245 pounds, 2 weeks ago. She has lost 8 pounds in 2 weeks. Her highest weight was 335 pounds. Her body mass index highest was 59.5. Today her BMI is 42.2. She has lost 97 pounds. Her percent excess weight loss is 50 %. She is 98 pounds overweight. PHYSICAL EXAM: VITAL SIGNS: Height 5 foot 3 inches, weight 238 pounds. BMI 42.2 Vital Signs Temp 98.4 F 12/25/18 14:32 Pulse 71 12/25/18 14:32 Resp 16 12/25/18 14:32 BP 125/62 12/25/18 14:32 Pulse Ox GENERAL: Well-developed in no acute distress. HEENT: No scleral icterus. Extraocular movements grossly intact. Hears conversational speech. No nasal drainage. NECK: Supple without lymphadenopathy. CHEST: Nonlabored respirations with equal bilateral excursions. CARDIOVASCULAR: Regular rate and regular rhythm. Distal 2+ pulses. ABDOMEN: She is sore along the left upper abdomen. Panniculitis present. Incisions intact. MUSCULOSKELETAL: No clubbing, cyanosis. Gross strength 5/5 distal lower extremities. No edema NEURO: No focal or lateralizing signs. Cranial nerves 2 through 12 grossly within normal limits. PSYCH: Appropriate affect. Alert and oriented to person, place and time. SKIN: Good skin turgor. Well perfused. ASSESSMENT: 1. Morbid obesity due to excess calories 2. Body mass index of 59.5, initial to 42.2 3. Osteoarthritis of the knees. 4. Coronary artery disease 5. Osteoarthritis of the lower back. 6. Hypertensive heart disease. 7. History of CVA/TIA 8. Gastroesophageal reflux disease 9. Myocardial infarction 10. Hyperlipidemia 11. Pituitary tumor 12. Migraines 13. Depressive disorder 14. Obstructive sleep apnea 15. Panniculitis 16. Uterine cancer 17. Anxiety 18. Depressive disorder 19. 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 Status post gastric bypass PLAN: 1. Recommend Nystatin powder for panniculitis 2. Her protein is adequate. 3. She will be off restrictions until day, 2 weeks from now, for lifting. 4. Recommend bariatric labs 5. Continue Omeprazole 6. Recommend stop cholesterol 7. Start multivitamin next week. 8. Follow-up in 3 months for Objective - Vital Signs Vital signs: Vital Signs Temp 98.4 F 12/25/18 14:32 Pulse 71 12/25/18 14:32 Resp 16 12/25/18 14:32 BP 125/62 12/25/18 14:32 Pulse Ox Intake & Output 12/24/18 12/25/18 12/25/18 18:59 06:59 18:59 Weight 107.955 kg
== END | disposition home or self-care (01) ==
LOC: BARWHC3 14:07
PROVIDERS: ATTEND Surgery Plastic and Reconstructive Surgery
DX: E66.01 Morbid (severe) obesity due to excess calories (principal); M79.3 Panniculitis, unspecified; Z68.41 Body mass index [BMI] 40.0-44.9, adult; Z79.899 Other long term (current) drug therapy
CPT/HCPCS: 97803; G0463; 99211

== ENCOUNTER → 2019-02-17 | Outpatient (CLI) | payer MEDICARE ==
[2019-02-17 14:59] LABS: HCT 40.2 % (34.0-46.0); HGB 13.2 gm/dL (11.4-16.0); MCH 30.7 pg (25.0-35.0); MCHC 32.8 g/dL (31.0-37.0); MCV 93.6 fL (80.0-100.0); Mean Platelet Volume 7.2; Platelet Count 187 k/uL (150-450); RBC 4.29 m/uL (3.80-5.40); RDW 13.9 % (11.5-15.5); WBC 5.6 k/uL (3.8-10.6)
[2019-02-17 15:09] LABS: Partial Thromboplastin Time 23.4 sec (22.0-30.0); Prothrombin Time 10.4 sec (9.0-12.0)
[2019-02-17 19:22] LABS: Iron Saturation 21.21 (12.00-45.00)
[2019-02-17 19:24] LABS: African American GFR (CKD) 94.9 (60.0-200.0); Albumin 4.1 g/dL (3.80-4.90); Albumin/Globulin Ratio 2.05 (1.60-3.17); Anion Gap 5.8 mmol/L (4.00-12.00); BUN/Creat Ratio 16.25 Ratio (12.00-20.00); Calcium 9.2 mg/dL (8.7-10.3); Carbon Dioxide 28.2 mmol/L (21.6-31.8); Chol/HDL Ratio 3.1; LDL Cholesterol,Calculated 87.6 mg/dL (0.0-131.0); Magnesium 1.9 mg/dL (1.5-2.4); Phosphorus 3.9 mg/dL (2.4-5.1); Potassium 3.8 mmol/L (3.5-5.5); Total Bilirubin 0.9 mg/dL (0.3-1.2); Total Protein 6.1 g/dL (6.2-8.2); VLDL Calculation 21.4 mg/dL (5.00-40.00)
[2019-02-17 19:31] LABS: Ferritin 25.4 ng/mL (10.0-291.0); Vitamin D 25 Hydroxy 30.6 ng/mL (30.0-100.0)
[2019-02-18 13:58] LABS: Zinc, Serum 53 ug/dL (60-130)
[2019-02-18 14:51] LABS: Hemoglobin A1C 5.3 % (4.0-6.0)
[2019-02-19 07:18] LABS: Vit B1(Thiamine) 59 ug/L (38-122); Vitamin A 39 ug/dL (38-106)
== END ==
LOC: LABWHC1 14:05
PROVIDERS: ATTEND Surgery Plastic and Reconstructive Surgery
DX: E66.01 Morbid (severe) obesity due to excess calories (principal); E21.1 Secondary hyperparathyroidism, not elsewhere classified; E89.1 Postprocedural hypoinsulinemia; D50.9 Iron deficiency anemia, unspecified; E44.0 Moderate protein-calorie malnutrition; E55.9 Vitamin D deficiency, unspecified; K74.1 Hepatic sclerosis; N19 Unspecified kidney failure; K50.90 Crohn's disease, unspecified, without complications
CPT/HCPCS: 36415; 80053; 80061; 82306; 82525; 82607; 82728; 82746; 83036; 83540; 83550; 83735; 83970; 84100; 84134; 84255; 84425; 84443; 84590; 84630; 85027; 85610; 85730

== ENCOUNTER → 2019-05-15 | Outpatient (CLI) | payer MEDICARE ==
[2019-05-15 16:57] LABS: HCT 41.7 % (34.0-46.0); HGB 13.5 gm/dL (11.4-16.0); MCH 30.7 pg (25.0-35.0); MCHC 32.4 g/dL (31.0-37.0); MCV 94.6 fL (80.0-100.0); Mean Platelet Volume 8.3; Platelet Count 159 k/uL (150-450); RDW 13.6 % (11.5-15.5); WBC 5.6 k/uL (3.8-10.6)
[2019-05-15 17:03] LABS: INR 0.9 (<1.2); Partial Thromboplastin Time 22.2 sec (22.0-30.0)
[2019-05-16 01:09] LABS: % Iron Saturation 42.57 (12.00-45.00); African American GFR (CKD) 81.7 (60.0-200.0); Albumin 3.7 g/dL (3.80-4.90); Albumin/Globulin Ratio 2.47 (1.60-3.17); Anion Gap 9.2 mmol/L (4.00-12.00); BUN/Creat Ratio 22.22 Ratio (12.00-20.00); Calcium 8.6 mg/dL (8.7-10.3); Carbon Dioxide 24.8 mmol/L (21.6-31.8); Chol/HDL Ratio 3.5; Ferritin 18.9 ng/mL (10.0-291.0); Folate, Serum 20.6 ng/mL; Globulin 1.5 g/dL (1.6-3.3); LDL Cholesterol,Calculated 97.6 mg/dL (0.0-131.0); Magnesium 1.8 mg/dL (1.5-2.4); Non-African American GFR(CKD) 70.5 (60.0-200.0); Phosphorus 4.4 mg/dL (2.4-5.1); Potassium 4.2 mmol/L (3.5-5.5); Total Bilirubin 0.7 mg/dL (0.3-1.2); Total Protein 5.2 g/dL (6.2-8.2); VLDL Calculation 22.4 mg/dL (5.00-40.00)
[2019-05-16 04:18] LABS: Hemoglobin A1C 5.5 % (4.0-6.0)
[2019-05-16 14:08] LABS: Zinc, Serum 94 ug/dL (60-130)
[2019-05-17 07:46] LABS: Vitamin A 36 ug/dL (38-106)
[2019-05-17 07:53] LABS: Vit B1(Thiamine) 66 ug/L (38-122)
[2019-05-17 21:47] LABS: Selenium 85 mcg/L (63-160)
== END | disposition home or self-care (01) ==
LOC: LABWHC1 15:57
PROVIDERS: ATTEND Surgery Plastic and Reconstructive Surgery
DX: E66.01 Morbid (severe) obesity due to excess calories (principal); N19 Unspecified kidney failure; K50.90 Crohn's disease, unspecified, without complications; E21.1 Secondary hyperparathyroidism, not elsewhere classified; E89.1 Postprocedural hypoinsulinemia; D50.9 Iron deficiency anemia, unspecified; K90.9 Intestinal malabsorption, unspecified; K74.1 Hepatic sclerosis; E55.9 Vitamin D deficiency, unspecified; E44.0 Moderate protein-calorie malnutrition
CPT/HCPCS: 36415; 80053; 80061; 82306; 82525; 82607; 82728; 82746; 83036; 83540; 83550; 83735; 83970; 84100; 84134; 84255; 84425; 84443; 84590; 84630; 85027; 85610; 85730

== ENCOUNTER → 2019-05-21 | Outpatient (CLI) | payer MEDICARE ==
--- NOTE | 2019-05-21 13:22 | P.PN ---
Subjective Progress Note Date: 05/21/19 HPI: She is 5 months out. She reports not bring happy with inadequate weight loss. She wants to be more active. Has occassional dysphagia. No reports of abdominal pain. Average protein intake less of 40 g, rarely 60 g. Recommend protein shakes Upper endoscopy She completed labs
[2019-05-21 13:29] VITALS: BP 122/76; PULSE 64; RESP 16; TEMP 98; BMI 38.0
== END | disposition home or self-care (01) ==
LOC: BARWHC3 12:52
PROVIDERS: ATTEND Surgery Plastic and Reconstructive Surgery
DX: E66.01 Morbid (severe) obesity due to excess calories (principal); R13.10 Dysphagia, unspecified
CPT/HCPCS: 97803; G0463; 99211

== ENCOUNTER 2019-12-28 20:36 | Emergency (ER) | payer MEDICARE ==
[2019-12-28 20:46] VITALS: TEMP 98.2
[2019-12-28] MEDS ORDERED: ACETAMINOPHEN TAB 325 MG TAB PO STA (20:52)
--- NOTE | 2019-12-28 21:04 | ED ---
General Adult HPI - General Chief complaint: Skin/Abscess/Foreign Body Stated complaint: ALLERGIC REACTION Time Seen by Provider: 12/28/19 20:40 Source: patient, EMS, RN notes reviewed, old records reviewed Mode of arrival: EMS - History of Present Illness Initial comments: 59-year-old female patient presents to ED for evaluation of these things. Patient reports that she was stung approximately 31 time in the left knee region one, left forearm and one time in the right elbow. Reports that they were yellow jackets. Patient reports that she has had ALLERGIC reactions in the past. She states that she felt some numbness and tingling on her tongue she felt somewhat short of breath denies any rash or hives nausea or vomiting facial swelling. Patient called EMS. EMS did administer epinephrine and Solu-Medrol 125. Patient took 50 mg of Benadryl self. Upon arrival to Hospital. Patient is feeling better and is having a little bit of localized pain around the stings but denies any other complaints. Systemic: Pt denies fatigue, fever/chills, rash. Pt denies weakness, night sweats, weight loss. Neuro: Pt denies headache, visual disturbances, syncope or pre-syncope. HEENT: Pt denies ocular discharge or irritation, otalgia, rhinorrhea, pharyngitis or notable lymphadenopathy. Cardiopulmonary: Pt denies chest pain, SOB, heart palpitations, dyspnea on exertion. Abdominal/GI: Pt denies abdominal pain, n/v/d. : Pt denies dysuria, burning w/ urination, frequency/urgency. Denies new onset urinary or bowel incontinence. MSK: Pt denies myalgia, loss of strength or function in extremities. Neuro: Pt denies new onset weakness, paresthesias. - Related Data Home Medications Medication Instructions Recorded Confirmed Escitalopram Oxalate [Lexapro] 20 mg PO DAILY 02/17/15 05/21/19 Primidone [Mysoline] 100 mg PO HS 02/17/15 05/21/19 Previous Rx's Medication Instructions Recorded Losartan [Cozaar] 50 mg PO DAILY #30 tab 12/04/18 Nystatin 100,000 Unit/gm Powd 1 applic TOPICAL BID #60 powder 12/26/18 [Mycostatin Powder] EPINEPHrine (Auto Inject) [Epipen] 0.3 mg IM ONCE PRN #2 pen 12/28/19 predniSONE 50 mg PO DAILY 4 Days #4 tab 12/28/19 Allergies Allergy/AdvReac Type Severity Reaction Status Date / Time eletriptan HBr [From Relpax] Allergy Severe Anaphylaxis Verified 12/28/19 20:46 bee pollen Allergy Dyspnea Verified 12/28/19 20:46 Review of Systems ROS Statement: Those systems with pertinent positive or pertinent negative responses have been documented in the HPI. ROS Other: All systems not noted in ROS Statement are negative. Past Medical History Past Medical History: Coronary Artery Disease (CAD), Cancer, CVA/TIA, Hyperlipidemia, Hypertension, Myocardial Infarction ([place]), Osteoarthritis (OA) Additional Past Medical History / Comment(s): 05-03-18 PT WOULD LIKE A FLU VACCINE WHILE HERE. 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 pituitary tumor present & stable since age 26 -, migraines, UTERINE CANCER at age 28 cryo procedure. CVA 2013 affected short term memory and rt arm mild weakness, -ESSENTIAL TREMORS RIGHT SIDE CONTROLLED WITH PRIMADONE, USES A CANE Last Myocardial Infarction Date:: 2005 History of Any Multi-Drug Resistant Organisms: None Reported Past Surgical History: Bariatric Surgery, Section, Cholecystectomy, Heart Catheterization, Joint Replacement, Orthopedic Surgery, Tubal Ligation Additional Past Surgical History / Comment(s): gastric sleeve (converted to gastric bypass 12-09-18). RT FOOT SX plate/screw. RT TOTAL KNEE REPLACEMENT. EGD, colonoscopy Past Anesthesia/Blood Transfusion Reactions: No Reported Reaction Additional Past Anesthesia/Blood Transfusion Reaction / Comment(s): CLAUSTERPHOBIA. HAS NEVER RECEIVED ANY BLOOD TRNASFUSIONS Past Psychological History: Anxiety, Depression Smoking Status: Former smoker Past Alcohol Use History: Occasional Past Drug Use History: None Reported - Past Family History Mother Family Medical History: Diabetes Mellitus, Hyperlipidemia Additional Family Medical History / Comment(s): HEART PROBLEMS Father Family Medical History: AFIB, Congestive Heart Failure (CHF), Hyperlipidemia General Exam - General Exam Comments Initial Comments: Constitutional: NAD, AOX3, Pt has pleasant affect. HEENT: NC/AT, trachea midline, neck supple, no lymphadenopathy. Posterior pharynx non erythematous, without exudates. External ears appear normal, without discharge. Mucous membranes moist. Eyes PERRLA, EOM intact. There is no scleral icterus. No pallor noted. No angioedema no rash. Cardiopulmonary: RRR, no murmurs, rubs or gallops, no JVD noted. Lungs CTAB in anterior and posterior gibbs. No peripheral edema. Abdominal exam: Abdomen soft and non-distended. Abdomen non-tender to palpation in all 4 quadrants. Bowel sounds active in LLQ. No hepatosplenomegaly. Neuro: CN II-XII grossly intact. No nuchal rigidity. No raccon eyes, no soriano sign, no hemotympanum. No cervical spinal tenderness. MSK: Area of stings are evaluated. Small amount of erythema left knee left forearm right elbow.. No stingers are located. No rash. Full active ROM in upper and lower extremities, 5/5 stregnth. Course Vital Signs 12/28/19 20:40 Temperature 98.2 F Pulse Rate 95 Respiratory 19 Rate Blood Pressure 142/64 O2 Sat by Pulse 100 Oximetry Medical Decision Making - Medical Decision Making 59-year-old female patient presents ED for evaluation of bee stings. Physical exam displayed a small amount of erythema around the area of stings no rash no angioedema patient is asymptomatic. Patient observed for one hour and 45 minutes. Patient will be discharged with her steroid treatment refill EpiPen and return precautions. Case discussed with Dr. Dominique. Disposition Clinical Impression: Bee sting Disposition: HOME SELF-CARE Condition: Stable Instructions (If sedation given, give patient instructions): Insect Bite or Sting (ED) Additional Instructions: take steroids as directed. Follow-up with primary care provider. Return to ER if condition worsens. I did refill your EpiPen only use for emergency anaphylaxis symptoms of this include: swelling of face, difficulty breathing, rash. Prescriptions: EPINEPHrine (Auto Inject) [Epipen] 0.3 mg IM ONCE PRN #2 pen PRN Reason: Anaphylaxis predniSONE 50 mg PO DAILY 4 Days #4 tab Is patient prescribed a controlled substance at d/c from ED?: No Referrals: Raymond Mcgovern DO [Primary Care Provider] - 1-2 days
[2019-12-29 00:57] VITALS: BP 131/59; PULSE 66; RESP 18
== END 2019-12-28 22:42 | disposition home or self-care (01) ==
LOC: EC 20:36
DX: T63.441A Toxic effect of venom of bees, accidental (unintentional), initial encounter (principal); L53.8 Other specified erythematous conditions; F41.9 Anxiety disorder, unspecified; F32.9 Major depressive disorder, single episode, unspecified; I25.2 Old myocardial infarction; Z79.899 Other long term (current) drug therapy; Z88.8 Allergy status to other drugs, medicaments and biological substances; Z91.030 Bee allergy status; Z85.42 Personal history of malignant neoplasm of other parts of uterus; Z96.651 Presence of right artificial knee joint; Z87.891 Personal history of nicotine dependence; Z86.73 Personal history of transient ischemic attack (TIA), and cerebral infarction without residual deficits
CPT/HCPCS: 99284

== ENCOUNTER → 2020-03-31 | Outpatient (CLI) | payer MEDICARE ==
[2020-03-31 14:25] VITALS: BP 132/80; PULSE 68; RESP 18; TEMP 98.1; BMI 39.3
--- NOTE | 2020-03-31 15:24 | P.PN ---
Subjective Progress Note Date: 03/31/20 DATE OF SERVICE: 03/31/2020 CHIEF COMPLAINT: Status post gastric bypass HISTORY OF PRESENT ILLNESS: Alessandra Pardo is a 58-year-old female who is status revision from sleeve to gastric bypass, 12/02/18. She is 1 year out. She had the of her brother. 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 She was last seen 10 months ago. 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 She is depressed. She denies abdominal pain. She has gained 7 pounds as she is eating on the run. She sees Dr. Mcgovern. She denies dysphagia. She lost 5 teeth this year. Her teeth is breaking. She is eating fish and taking time to chew her foods. She can tolerate ground beef. At height of 5 feet 3 inches, her ideal body weight is 140 pounds. She comes in 222 pounds from 215 pounds, 10 months ago. She has gained 7 pounds in 10 months. Her highest weight was 335 pounds. Her body mass index highest was 59.5. Today her BMI is 39.3. She has lost 113 pounds. Her percent excess weight loss is 58 %. She is 82 pounds overweight. PAST MEDICAL HISTORY: 1. Morbid obesity due to excess calories 2. Body mass index of 59.5, initial 3. Osteoarthritis of the knees. 4. Coronary artery disease 5. Osteoarthritis of the lower back. 6. Hypertensive heart disease. 7. CVA/TIA 8. Gastroesophageal reflux disease 9. Myocardial infarction 10. Hyperlipidemia 11. Pituitary tumor 12. Migraines 13. Depressive disorder 14. Obstructive sleep apnea 15. Panniculitis 16. Uterine cancer 17. Anxiety 18. Depressive disorder PAST SURGICAL HISTORY: 1. Sleeve gastrectomy 2. section 3. Tubal ligation 4. Cholecystectomy 5. Heart catheterization 6. Right foot surgery 7. Right knee replacement 8. Upper endoscopy 9. Gastric bypass HOME MEDICATIONS: ALLERGIES: Home Medications Medication Instructions Recorded Confirmed Escitalopram Oxalate [Lexapro] 20 mg PO DAILY 02/17/15 05/21/19 Primidone [Mysoline] 100 mg PO HS 02/17/15 05/21/19 Previous Rx's Medication Instructions Recorded Losartan [Cozaar] 50 mg PO DAILY #30 tab 12/04/18 Nystatin 100,000 Unit/gm Powd 1 applic TOPICAL BID #60 powder 12/26/18 [Mycostatin Powder] SOCIAL HISTORY: Past tobacco use. FAMILY HISTORY: No family history of ulcerative colitis disease or Crohn's disease. Family history of morbid obesity. No lupus in the family. No reports of stomach or esophageal cancer. REVIEW OF ORGAN SYSTEMS: CONSTITUTIONAL: At height of 5 feet 3 inches, her ideal body weight is 140 pounds. Her highest weight was 335 pounds. Her body mass index highest was 59.5. HEENT: Denies any active troubles with vision or hearing. No troubles with swallowing. ENDOCRINE: No diabetes. No hypothyroidism. CARDIOVASCULAR: No reports of palpitations. Past heart attacks and chest pain. She was on 2 blood pressure medications and is now off of them. RESPIRATORY: Has daytime somnolence. No asthma. GI: Denies any bright red blood per rectum. No diarrhea. Has constipation. MUSCULOSKELETAL: Has lower back pain and joint pain. Has osteoarthritis of the knees. NEURO: No headaches. No seizure disorders. Past history of stroke. PSYCH: Has depression. No suicidal ideation. RHEUMATOLOGIC: No lupus. No rheumatoid arthritis. HEMATOLOGIC: Denies any abnormal bleeding or bruising. No personal history of DVTs. SKIN: No rash. No skin cancer. PHYSICAL EXAM: VITAL SIGNS: Height 5 foot 3 inches, weight 222 pounds. BMI 39.3 Vital Signs Temp 98.1 F 03/31/20 14:22 Pulse 68 03/31/20 14:22 Resp 18 03/31/20 14:22 BP 132/80 03/31/20 14:22 Pulse Ox GENERAL: Well-developed in no acute distress. HEENT: No scleral icterus. Extraocular movements grossly intact. Hears conversational speech. No nasal drainage. NECK: Supple without lymphadenopathy. CHEST: Nonlabored respirations with equal bilateral excursions. CARDIOVASCULAR: Regular rate and regular rhythm. Distal 2+ pulses. ABDOMEN: No hernia. Nontender. No infection. MUSCULOSKELETAL: No clubbing, cyanosis. NEURO: No focal or lateralizing signs. Cranial nerves 2 through 12 grossly within normal limits. PSYCH: Appropriate affect. Alert and oriented to person, place and time. SKIN: Good skin turgor. Well perfused. ASSESSMENT: 1. Morbid obesity due to excess calories 2. Body mass index of 59.5, initial to 39.3 3. Osteoarthritis of the knees. 4. Coronary artery disease 5. Osteoarthritis of the lower back. 6. Hypertensive heart disease, improved. 7. History of CVA/TIA 8. Gastroesophageal reflux disease 9. Myocardial infarction 10. Hyperlipidemia 11. Pituitary tumor 12. Migraines 13. Depressive disorder 14. Obstructive sleep apnea 15. Panniculitis 16. History of uterine cancer 17. Anxiety 18. Depressive disorder 19. 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 Status post gastric bypass 21. Vitamin A deficiency 22. Vitamin B-12 deficiency 23. Vitamin D deficiency 24. Secondary hyperparathyroidism PLAN: 1. Recommend esophogram. 2. Recommend bariatric labs. 3. Recommend upper endoscopy Objective - Vital Signs Vital signs: Vital Signs Temp 98.1 F 03/31/20 14:22 Pulse 68 03/31/20 14:22 Resp 18 03/31/20 14:22 BP 132/80 03/31/20 14:22 Pulse Ox Intake & Output 03/30/20 03/31/20 03/31/20 18:59 06:59 18:59 Weight 100.698 kg - Labs CBC & Chem 7: 03/31/20 16:08 03/31/20 16:08
[2020-03-31 16:50] LABS: HCT 39.2 % (34.0-46.0); HGB 12.7 gm/dL (11.4-16.0); MCHC 32.4 g/dL (31.0-37.0); MCV 92.5 fL (80.0-100.0); Platelet Count 177 k/uL (150-450); RBC 4.24 m/uL (3.80-5.40); WBC 6.2 k/uL (3.8-10.6)
[2020-04-01 00:20] LABS: % Iron Saturation 23.82 (12.00-45.00); African American GFR (CKD) 81.1 (60.0-200.0); Albumin/Globulin Ratio 1.9 (1.60-3.17); Anion Gap 6.6 mmol/L (4.00-12.00); BUN/Creat Ratio 16.67 Ratio (12.00-20.00); Calcium 8.8 mg/dL (8.7-10.3); Carbon Dioxide 28.4 mmol/L (21.6-31.8); Chol/HDL Ratio 3.09; Globulin 2.1 g/dL (1.6-3.3); LDL Cholesterol,Calculated 95.8 mg/dL (0.0-131.0); Magnesium 1.8 mg/dL (1.5-2.4); Phosphorus 4.1 mg/dL (2.4-5.1); Potassium 4.2 mmol/L (3.5-5.5); Total Bilirubin 0.7 mg/dL (0.3-1.2); Total Protein 6.1 g/dL (6.2-8.2); VLDL Calculation 19.2 mg/dL (5.00-40.00)
[2020-04-01 00:40] LABS: Ferritin 10.6 ng/mL (10.0-291.0); Folate, Serum 19.9 ng/mL
[2020-04-01 03:20] LABS: INR 0.98 (0.90-1.11); Partial Thromboplastin Time 24.3 sec (23.5-31.0); Prothrombin Time 10.6 sec (9.9-11.9)
[2020-04-02 13:55] LABS: Zinc, Serum 59 ug/dL (60-130)
[2020-04-03 19:05] LABS: Selenium 101 mcg/L (63-160)
[2020-04-05 06:29] LABS: Vit B1(Thiamine) 65 ug/L (38-122)
[2020-04-05 06:47] LABS: Vitamin A 47 ug/dL (38-106)
== END | disposition home or self-care (01) ==
LOC: BARWHC3 14:03
PROVIDERS: ATTEND Surgery Plastic and Reconstructive Surgery
DX: E66.01 Morbid (severe) obesity due to excess calories (principal); M17.0 Bilateral primary osteoarthritis of knee; I25.10 Atherosclerotic heart disease of native coronary artery without angina pectoris; M47.9 Spondylosis, unspecified; I11.9 Hypertensive heart disease without heart failure; K21.9 Gastro-esophageal reflux disease without esophagitis; I21.9 Acute myocardial infarction, unspecified; E78.5 Hyperlipidemia, unspecified; G43.909 Migraine, unspecified, not intractable, without status migrainosus; F32.9 Major depressive disorder, single episode, unspecified; G47.33 Obstructive sleep apnea (adult) (pediatric); M79.3 Panniculitis, unspecified; F41.9 Anxiety disorder, unspecified; E50.9 Vitamin A deficiency, unspecified; E55.9 Vitamin D deficiency, unspecified; E53.8 Deficiency of other specified B group vitamins; N25.81 Secondary hyperparathyroidism of renal origin; Z86.73 Personal history of transient ischemic attack (TIA), and cerebral infarction without residual deficits; Z68.39 Body mass index [BMI] 39.0-39.9, adult; Z85.42 Personal history of malignant neoplasm of other parts of uterus; Z98.84 Bariatric surgery status
CPT/HCPCS: 84255; 84134; 84425; 80061; 80053; 82607; 82728; 82525; 82746; 83540; 83550; 83735; 84100; 84443; 84590; 84630; 85027; 85610; 85730; 82306; 83970; 83036; G0463; 99211

== ENCOUNTER 2020-09-11 22:05 | Emergency (ER) | payer MEDICARE ==
[2020-09-11 22:13] VITALS: BP 153/79; PULSE 61; RESP 18; TEMP 98.1
[2020-09-11] MEDS ORDERED: KETOROLAC 15 MG/ML 1 ML VIAL IM STA (22:21)
--- NOTE | 2020-09-11 22:33 | ED ---
Lower Extremity Injury HPI - General Chief Complaint: Extremity Injury, Lower Stated Complaint: poss bloot clot lt leg Time Seen by Provider: 09/11/20 22:16 Source: patient Mode of arrival: ambulatory Limitations: no limitations - History of Present Illness Initial Comments: 60 year-old female patient for evaluation of left calf pain, redness, and tender ness. States symptoms started today after walking while shopping. States that the area is swollen, reddened and tender. Denies history of blood clot. States that she does have remote history of CVA and takes baby aspirin. Denies generalized swelling to the leg. Denies any fever or chills. Denies injury. She denies any chest pain, heart racing, or shortness of breath. - Related Data Home Medications Medication Instructions Recorded Confirmed Escitalopram Oxalate [Lexapro] 20 mg PO DAILY 02/17/15 03/31/20 Primidone [Mysoline] 100 mg PO HS 02/17/15 03/31/20 Ascorbic Acid [Vitamin C] 250 mg PO DAILY 03/31/20 03/31/20 Calcium Carbonate/Vitamin D3 1 each PO DAILY 03/31/20 03/31/20 [Calcium 500 mg-Vit D3 5 Mcg (200 Unit)] Multivitamin [Multivitamins Adult 1 each PO DAILY 03/31/20 03/31/20 Gummies] Previous Rx's Medication Instructions Recorded Losartan [Cozaar] 50 mg PO DAILY #30 tab 12/04/18 Nystatin 100,000 Unit/gm Powd 1 applic TOPICAL BID #60 powder 12/26/18 [Mycostatin Powder] EPINEPHrine (Auto Inject) [Epipen] 0.3 mg IM ONCE PRN #2 pen 12/28/19 Ibuprofen [Motrin] 600 mg PO Q8HR PRN #30 tab 09/11/20 Allergies Allergy/AdvReac Type Severity Reaction Status Date / Time eletriptan HBr [From Relpax] Allergy Severe Anaphylaxis Verified 09/11/20 22:13 bee pollen Allergy Dyspnea Verified 09/11/20 22:13 Review of Systems ROS Statement: Those systems with pertinent positive or pertinent negative responses have been documented in the HPI. ROS Other: All systems not noted in ROS Statement are negative. Past Medical History Past Medical History: Coronary Artery Disease (CAD), Cancer, CVA/TIA, Hyperlipidemia, Hypertension, Myocardial Infarction ([place]), Osteoarthritis (OA) Additional Past Medical History / Comment(s): 05-03-18 PT WOULD LIKE A FLU VACCINE WHILE HERE. 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 pituitary tumor present & stable since age 26 -, migraines, UTERINE CANCER at age 28 cryo procedure. CVA 2013 affected short term memory and rt arm mild weakness, -ESSENTIAL TREMORS RIGHT SIDE CONTROLLED WITH PRIMADONE, USES A CANE Last Myocardial Infarction Date:: 2005 History of Any Multi-Drug Resistant Organisms: None Reported Past Surgical History: Bariatric Surgery, Section, Cholecystectomy, Heart Catheterization, Joint Replacement, Orthopedic Surgery, Tubal Ligation Additional Past Surgical History / Comment(s): gastric sleeve (converted to gastric bypass 12-09-18). RT FOOT SX plate/screw. RT TOTAL KNEE REPLACEMENT. EGD, colonoscopy Past Anesthesia/Blood Transfusion Reactions: No Reported Reaction Additional Past Anesthesia/Blood Transfusion Reaction / Comment(s): CLAUSTERPHOBIA. HAS NEVER RECEIVED ANY BLOOD TRNASFUSIONS Past Psychological History: Anxiety, Depression Smoking Status: Former smoker Past Alcohol Use History: Occasional Past Drug Use History: None Reported - Past Family History Mother Family Medical History: Diabetes Mellitus, Hyperlipidemia Additional Family Medical History / Comment(s): HEART PROBLEMS Father Family Medical History: AFIB, Congestive Heart Failure (CHF), Hyperlipidemia General Exam Limitations: no limitations General appearance: alert, in no apparent distress, other (This is a well- developed, well-nourished adult female patient in no acute distress. Vital signs upon presentation are temperature 98.1F, pulse 61, respirations 18, blood pressure 153/79, pulse ox 99% on room air.) ENT exam: Present: normal exam, normal oropharynx, mucous membranes moist Respiratory exam: Present: normal lung sounds bilaterally. Absent: respiratory distress, wheezes, rales, rhonchi, stridor Cardiovascular Exam: Present: regular rate, normal rhythm, normal heart sounds. Absent: systolic murmur, diastolic murmur, rubs, gallop, clicks Extremities exam: Present: full ROM, tenderness (Left calf), normal capillary refill, calf tenderness (left proximal calf), other (There is area of swelling, erythema, and tenderness to the left proximal calf. Skin is otherwise pink, warm, dry. Cap refill less than 3 seconds. Pedal pulse 2+ and equal bilaterally.). Absent: normal inspection, pedal edema, joint swelling Neurological exam: Present: alert, oriented X3, CN II-XII intact Psychiatric exam: Present: normal affect, normal mood Skin exam: Present: warm, dry, intact, normal color. Absent: rash Course Vital Signs 09/11/20 22:11 Temperature 98.1 F Pulse Rate 61 Respiratory 18 Rate Blood Pressure 153/79 O2 Sat by Pulse 99 Oximetry Medical Decision Making - Medical Decision Making 60-year-old female patient presented to the emergency department today for evaluation of pain, redness, swelling to the proximal calf on the left side. Physical examination did reveal a area of erythema, warmth, swelling. Ultrasound was obtained and was negative for DVT. I did discuss findings and results with the patient. We did discuss superficial thrombophlebitis as a possible cause for her symptoms. She is given ibuprofen to take 3 times daily. She is instructed to apply warm compresses. She is instructed to follow-up with her primary care physician for recheck in one to days. Return parameters were discussed in detail. She verbalizes understanding and agrees with this plan. Case discussed with my attending Dr. Gregorio. - Radiology Data Radiology results: report reviewed Ultrasound of the left lower extremity was obtained. Report was reviewed in its entirety. Impression by Dr. Ellington shows negative exam. No sign of deep pain thrombosis in the left leg. Disposition Clinical Impression: Leg pain Disposition: HOME SELF-CARE Condition: Good Instructions (If sedation given, give patient instructions): Superficial Thrombophlebitis (ED) Additional Instructions: Take ibuprofen as directed. Apply warm compresses over the area. Follow-up with your primary care physician for recheck in 1-2 days. Return for any new, worsening, or concerning symptoms. Prescriptions: Ibuprofen [Motrin] 600 mg PO Q8HR PRN #30 tab PRN Reason: Pain Is patient prescribed a controlled substance at d/c from ED?: No Referrals: Raymond Mcgovern DO [Primary Care Provider] - 1-2 days Time of Disposition: 23:20
--- NOTE | 2020-09-11 23:04 | US ---
EXAMINATION TYPE: US venous doppler duplex LE LT DATE OF EXAM: 09/11/2020 10:55 PM COMPARISON: NONE CLINICAL HISTORY: Left proximal calf pain/tenderness. pain left popliteal fossa SIDE PERFORMED: left TECHNIQUE: The lower extremity deep venous system is examined utilizing real time linear array sonog rom with graded compression, doppler sonography and color-flow sonography. VESSELS IMAGED: Common Femoral Vein Deep Femoral Vein Greater Saphenous Vein * Femoral Vein Popliteal Vein Small Saphenous Vein * Proximal Calf Veins (* superficial vessels) Left Leg: no evidence of DVT IMPRESSION: Negative exam. No sign of deep vein thrombosis in the left leg.
== END 2020-09-11 23:53 | disposition home or self-care (01) ==
LOC: EC 22:05
DX: L53.9 Erythematous condition, unspecified (principal); M79.662 Pain in left lower leg; M79.89 Other specified soft tissue disorders; M19.90 Unspecified osteoarthritis, unspecified site; I25.10 Atherosclerotic heart disease of native coronary artery without angina pectoris; E78.5 Hyperlipidemia, unspecified; I10 Essential (primary) hypertension; I25.2 Old myocardial infarction; F32.9 Major depressive disorder, single episode, unspecified; F41.9 Anxiety disorder, unspecified; Z85.42 Personal history of malignant neoplasm of other parts of uterus; Z87.891 Personal history of nicotine dependence; Z86.73 Personal history of transient ischemic attack (TIA), and cerebral infarction without residual deficits; Z79.1 Long term (current) use of non-steroidal anti-inflammatories (NSAID)
CPT/HCPCS: 93971; 99283; 96372; J1885

== ENCOUNTER 2020-12-26 14:19 | Emergency (ER) | payer MEDICARE ==
[2020-12-26 14:49] VITALS: RESP 18
--- NOTE | 2020-12-26 15:15 | XR ---
EXAMINATION TYPE: XR foot complete LT DATE OF EXAM: 12/26/2020 COMPARISON: NONE HISTORY: Left foot pain and swelling TECHNIQUE: Frontal, lateral, and oblique views of the left foot were obtained FINDINGS: No acute fracture or dislocation. Os naviculare is present. Moderate degenerative changes o f the midfoot most pronounced at the first metatarsocuneiform joint on plantar calcaneal spur. Mild d iffuse soft tissue swelling of the foot, most pronounced along the dorsal aspect. IMPRESSION: 1. No acute osseous abnormality. 2. Mild diffuse soft tissue swelling of the foot. 3. Moderate degenerative changes of the midfoot. 4. Os naviculare
--- NOTE | 2020-12-26 17:35 | XR ---
EXAMINATION TYPE: XR ankle complete LT DATE OF EXAM: 12/26/2020 CLINICAL HISTORY: Left ankle pain and swelling after injury TECHNIQUE: Frontal, lateral and oblique images of the left ankle are obtained. COMPARISON: Left foot radiograph same day FINDINGS: There is no acute fracture/dislocation evident in the left ankle. The ankle mortise appears within n ormal limits. Mild diffuse soft tissue swelling of the ankle. Small plantar calcaneal spur. Mild athe rosclerotic vascular calcifications are seen. Moderate degenerative changes of the midfoot. Mild dege nerative changes of the ankle. IMPRESSION: There is no acute fracture or dislocation in the left ankle.
--- NOTE | 2020-12-26 17:44 | ED ---
Lower Extremity Injury HPI - General Chief Complaint: Extremity Injury, Lower Stated Complaint: foot injury Time Seen by Provider: 12/26/20 17:09 Source: patient Mode of arrival: wheelchair Limitations: no limitations - History of Present Illness Initial Comments: 60-year-old female presents to emergency Department with a chief complaint of left foot injury. Patient reports this occurred about one day prior to arrival. Patient reports she had a mechanical, triple fall injury with an inversion mechanism on her left ankle. Patient reports she developed pain in the foot and the left angle. Reports limited range of motion due to pain and pain is exacerbated with ambulation and weightbearing.. Alleviated at rest. States there is some ecchymosis to region but denies any erythematous changes. There is associated swelling to the region as well. She denies taking medication to alleviate the symptoms. - Related Data Home Medications Medication Instructions Recorded Confirmed Escitalopram Oxalate [Lexapro] 20 mg PO DAILY 02/17/15 03/31/20 Primidone [Mysoline] 100 mg PO HS 02/17/15 03/31/20 Ascorbic Acid [Vitamin C] 250 mg PO DAILY 03/31/20 03/31/20 Calcium Carbonate/Vitamin D3 1 each PO DAILY 03/31/20 03/31/20 [Calcium 500 mg-Vit D3 5 Mcg (200 Unit)] Multivitamin [Multivitamins Adult 1 each PO DAILY 03/31/20 03/31/20 Gummies] Previous Rx's Medication Instructions Recorded Losartan [Cozaar] 50 mg PO DAILY #30 tab 12/04/18 Nystatin 100,000 Unit/gm Powd 1 applic TOPICAL BID #60 powder 12/26/18 [Mycostatin Powder] EPINEPHrine (Auto Inject) [Epipen] 0.3 mg IM ONCE PRN #2 pen 12/28/19 Ibuprofen [Motrin] 600 mg PO Q8HR PRN #30 tab 09/11/20 Allergies Allergy/AdvReac Type Severity Reaction Status Date / Time eletriptan HBr [From Relpax] Allergy Severe Anaphylaxis Verified 12/26/20 14:49 bee pollen Allergy Dyspnea Verified 12/26/20 14:49 Review of Systems ROS Statement: Those systems with pertinent positive or pertinent negative responses have been documented in the HPI. ROS Other: All systems not noted in ROS Statement are negative. Past Medical History Past Medical History: Coronary Artery Disease (CAD), Cancer, CVA/TIA, Hyperlipidemia, Hypertension, Myocardial Infarction (IA), Osteoarthritis (OA) Additional Past Medical History / Comment(s): 05-03-18 PT WOULD LIKE A FLU VACCINE WHILE HERE. 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 pituitary tumor present & stable since age 26 -, migraines, UTERINE CANCER at age 28 cryo procedure. CVA 2013 affected short term memory and rt arm mild weakness, -ESSENTIAL TREMORS RIGHT SIDE CONTROLLED WITH PRIMADONE, USES A CANE Last Myocardial Infarction Date:: 2005 History of Any Multi-Drug Resistant Organisms: None Reported Past Surgical History: Bariatric Surgery, Section, Cholecystectomy, Heart Catheterization, Joint Replacement, Orthopedic Surgery, Tubal Ligation Additional Past Surgical History / Comment(s): gastric sleeve (converted to gastric bypass 12-09-18). RT FOOT SX plate/screw. RT TOTAL KNEE REPLACEMENT. EGD, colonoscopy Past Anesthesia/Blood Transfusion Reactions: No Reported Reaction Additional Past Anesthesia/Blood Transfusion Reaction / Comment(s): CLAUSTERPHOBIA. HAS NEVER RECEIVED ANY BLOOD TRNASFUSIONS Past Psychological History: Anxiety, Depression Smoking Status: Former smoker Past Alcohol Use History: Occasional Past Drug Use History: None Reported - Past Family History Mother Family Medical History: Diabetes Mellitus, Hyperlipidemia Additional Family Medical History / Comment(s): HEART PROBLEMS Father Family Medical History: AFIB, Congestive Heart Failure (CHF), Hyperlipidemia General Exam Limitations: no limitations General appearance: alert, in no apparent distress, obese Head exam: Present: atraumatic, normocephalic, normal inspection Eye exam: Present: normal appearance Pupils: Present: normal accommodation ENT exam: Present: normal exam, normal oropharynx, mucous membranes moist Neck exam: Present: normal inspection, full ROM. Absent: tenderness, lymphadenopathy Respiratory exam: Present: normal lung sounds bilaterally. Absent: respiratory distress, wheezes, rales Cardiovascular Exam: Present: regular rate, normal rhythm, normal heart sounds. Absent: systolic murmur, diastolic murmur Extremities exam: Present: tenderness (Midfoot and left malleolus tenderness.), normal capillary refill. Absent: normal inspection (Swelling and ecchymosis noted in the midfoot region and left lateral malleolus.), full ROM (Abdomen range of motion with inversion and eversion.), pedal edema, joint swelling Back exam: Present: normal inspection, full ROM. Absent: tenderness, CVA tenderness (R), CVA tenderness (L) Neurological exam: Present: alert, oriented X3 Psychiatric exam: Present: normal affect, normal mood Skin exam: Present: warm, dry, intact, normal color Course Vital Signs 12/26/20 12/26/20 14:45 18:12 Temperature 98.4 F 98.3 F Pulse Rate 65 79 Respiratory 18 18 Rate Blood Pressure 119/80 133/78 O2 Sat by Pulse 98 98 Oximetry Medical Decision Making - Medical Decision Making 60-year-old female presents emergency Department with a chief complaint of left foot injury. On physical examination, she has swollen ecchymosis to the left foot and ankle. X-rays of the foot show some soft tissue swelling, post the prominent dorsal aspect of foot. X-ray of the ankle shows no acute findings. I do suspect a sprain to the foot and ankle. Diego wrap was applied. Patient was advised to keep the foot elevated, continue with the compression ice. Tylenol Motrin for pain. She was advised to follow-up with import/export specialist. Return primary's with early discussed the patient is a 8-year-old. Disposition Clinical Impression: Injury of left foot, Left ankle injury Disposition: HOME SELF-CARE Condition: Stable Instructions (If sedation given, give patient instructions): Ankle Sprain (ED), Foot Sprain (ED) Additional Instructions: Follow-up with import/export specialist. Return to emergency department if symptoms worsen. Is patient prescribed a controlled substance at d/c from ED?: No Referrals: Raymond Mcgovern DO [Primary Care Provider] - 1-2 days Rick Arias MD [STAFF PHYSICIAN] - 1-2 days Time of Disposition: 17:47
[2020-12-26 18:14] VITALS: BP 133/78; PULSE 79; TEMP 98.3
== END 2020-12-26 18:14 | disposition home or self-care (01) ==
LOC: EC 14:19
DX: S90.32XA Contusion of left foot, initial encounter (principal); S90.02XA Contusion of left ankle, initial encounter; I10 Essential (primary) hypertension; E78.5 Hyperlipidemia, unspecified; I25.10 Atherosclerotic heart disease of native coronary artery without angina pectoris; I25.2 Old myocardial infarction; M19.90 Unspecified osteoarthritis, unspecified site; F41.9 Anxiety disorder, unspecified; F32.9 Major depressive disorder, single episode, unspecified; Z86.73 Personal history of transient ischemic attack (TIA), and cerebral infarction without residual deficits; Z87.891 Personal history of nicotine dependence; Z85.42 Personal history of malignant neoplasm of other parts of uterus; Z79.1 Long term (current) use of non-steroidal anti-inflammatories (NSAID); Z96.651 Presence of right artificial knee joint; Z90.49 Acquired absence of other specified parts of digestive tract; Z98.84 Bariatric surgery status; W01.0XXA Fall on same level from slipping, tripping and stumbling without subsequent striking against object, initial encounter
CPT/HCPCS: 99283

== ENCOUNTER 2021-02-24 23:01 | Observation (INO) | payer MEDICARE ==
[2021-02-24] MEDS ORDERED: ACET/COD 300 MG/30 MG STARTER PACK 6 TAB BTL PO STA (23:20)
--- NOTE | 2021-02-25 01:41 | ED ---
General Adult HPI <Rogers Gregorio - Last Filed: 02/25/21 03:14> - General Source: patient, family Mode of arrival: wheelchair Limitations: no limitations <Sofia Petersen - Last Filed: 02/25/21 04:09> - General Chief complaint: Extremity Injury, Upper Stated complaint: Left Arm Pain Time Seen by Provider: 02/24/21 23:13 - History of Present Illness Initial comments: 61-year-old female patient presents to the emergency department today for evaluation of left arm pain. Patient states she has swelling and pain over the lateral aspect of the elbow. States it is tender to touch. She denies any injury. States she is concerned about blood clot. She denies fever or chills. She denies history of blood clot. No recent lab draw or IV insertion. Denies history of similar symptoms. Patient denies any recent rash, cough, shortness of breath, chest pain, abdominal pain, nausea, vomiting, diarrhea, constipation, back pain, numbness, tingling, dizziness, weakness, hematuria, dysuria, urinary urgency, urinary frequency, headache, visual changes, or any other complaints. (Sofia Petersen) - Related Data Home Medications Medication Instructions Recorded Confirmed Escitalopram Oxalate [Lexapro] 20 mg PO DAILY 02/17/15 03/31/20 Primidone [Mysoline] 100 mg PO HS 02/17/15 03/31/20 Ascorbic Acid [Vitamin C] 250 mg PO DAILY 03/31/20 03/31/20 Calcium Carbonate/Vitamin D3 1 each PO DAILY 03/31/20 03/31/20 [Calcium 500 mg-Vit D3 5 Mcg (200 Unit)] Multivitamin [Multivitamins Adult 1 each PO DAILY 03/31/20 03/31/20 Gummies] Previous Rx's Medication Instructions Recorded Losartan [Cozaar] 50 mg PO DAILY #30 tab 12/04/18 Nystatin 100,000 Unit/gm Powd 1 applic TOPICAL BID #60 powder 12/26/18 [Mycostatin Powder] EPINEPHrine (Auto Inject) [Epipen] 0.3 mg IM ONCE PRN #2 pen 12/28/19 Ibuprofen [Motrin] 600 mg PO Q8HR PRN #30 tab 09/11/20 Ibuprofen [Motrin] 600 mg PO Q8HR PRN #30 tab 02/25/21 Allergies Allergy/AdvReac Type Severity Reaction Status Date / Time eletriptan HBr [From Relpax] Allergy Severe Anaphylaxis Verified 02/24/21 23:07 bee pollen Allergy Dyspnea Verified 02/24/21 23:07 Review of Systems ROS Other: All systems not noted in ROS Statement are negative. <Rogers Gregorio - Last Filed: 02/25/21 03:14> ROS Other: All systems not noted in ROS Statement are negative. <Sofia Petersen - Last Filed: 02/25/21 04:09> ROS Statement: Those systems with pertinent positive or pertinent negative responses have been documented in the HPI. Past Medical History Past Medical History: Coronary Artery Disease (CAD), Cancer, CVA/TIA, Hyperlipidemia, Hypertension, Myocardial Infarction (CT), Osteoarthritis (OA) Additional Past Medical History / Comment(s): 05-03-18 PT WOULD LIKE A FLU VACCINE WHILE HERE. 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 pituitary tumor present & stable since age 26 -, migraines, UTERINE CANCER at age 28 cryo procedure. CVA 2013 affected short term memory and rt arm mild weakness, -ESSENTIAL TREMORS RIGHT SIDE CONTROLLED WITH PRIMADONE, USES A CANE Last Myocardial Infarction Date:: 2005 History of Any Multi-Drug Resistant Organisms: None Reported Past Surgical History: Bariatric Surgery, Section, Cholecystectomy, Heart Catheterization, Joint Replacement, Orthopedic Surgery, Tubal Ligation Additional Past Surgical History / Comment(s): gastric sleeve (converted to gastric bypass 12-09-18). RT FOOT SX plate/screw. RT TOTAL KNEE REPLACEMENT. EGD, colonoscopy Past Anesthesia/Blood Transfusion Reactions: No Reported Reaction Additional Past Anesthesia/Blood Transfusion Reaction / Comment(s): CLAUSTERPHOBIA. HAS NEVER RECEIVED ANY BLOOD TRNASFUSIONS Past Psychological History: Anxiety, Depression Smoking Status: Current some day smoker, Vaper Past Alcohol Use History: Occasional Past Drug Use History: None Reported - Past Family History Mother Family Medical History: Diabetes Mellitus, Hyperlipidemia Additional Family Medical History / Comment(s): HEART PROBLEMS Father Family Medical History: AFIB, Congestive Heart Failure (CHF), Hyperlipidemia <Sofia Petersen - Last Filed: 02/25/21 04:09> General Exam Limitations: no limitations General appearance: alert, in no apparent distress Respiratory exam: Present: normal lung sounds bilaterally. Absent: respiratory distress, wheezes, rales, rhonchi, stridor Cardiovascular Exam: Present: regular rate, normal rhythm, normal heart sounds. Absent: systolic murmur, diastolic murmur, rubs, gallop, clicks Extremities exam: Present: normal inspection, full ROM, tenderness (Left lateral elbow, antecubital fossa tenderness), normal capillary refill, other (Skin to the left arm is pink, warm, dry. Cap refill less than 3 seconds. Radial pulses 2+.). Absent: pedal edema, joint swelling, calf tenderness Neurological exam: Present: alert, oriented X3, CN II-XII intact Psychiatric exam: Present: normal affect, normal mood Skin exam: Present: warm, dry, intact, normal color. Absent: rash <Sofia Petersen - Last Filed: 02/25/21 04:09> Course <Sofia Petersen - Last Filed: 02/25/21 04:09> Vital Signs 02/24/21 23:03 Temperature 97.5 F L Pulse Rate 55 L Respiratory 24 Rate Blood Pressure 190/76 O2 Sat by Pulse 99 Oximetry - Reevaluation(s) Reevaluation #1: 02/25/21 02:27 Went in to give patient results of ultrasound. She states she started having chest pain about 30 minutes ago. States it is a burning pain in her lower chest. She denies shortness of breath, nausea, or vomiting. Denies radiation to her back. Does have history of CT in 2003. (Sofia Petersen) EKG Findings - EKG Comments: EKG Findings:: EKG shows sinus bradycardia 51 OH 180 QRS 78 QTc 449 <Rogers Gregorio - Last Filed: 02/25/21 03:14> Medical Decision Making - Lab Data Result diagrams: 02/25/21 02:32 02/25/21 02:32 - Radiology Data Radiology results: report reviewed, image reviewed <Sofia Petersen - Last Filed: 02/25/21 04:09> - Medical Decision Making 61-year-old female patient presents to the emergency department today for evaluation of left arm pain. She reported increased pain with full extension of the elbow, tenderness over the left lateral elbow, and mild soft tissue swelling. She was very concerned for blood clots we did ultrasound the arm was negative. We did discuss possibility of tendinitis as a cause for her symptoms however while here patient did develop burning substernal chest pain. Added l abs troponin was negative. EKG showed sinus bradycardia with no ST elevation or depression. She does have history of coronary artery disease and had a CT in 2003. We'll keep patient for observation, repeat troponins. She'll be given aspirin. She is agreeable this plan. Case discussed with my attending Dr. Gregorio. (Sofia Petersen) - Lab Data Lab Results 02/25/21 02/25/21 02/25/21 Range/Units 02:32 02:32 02:32 WBC 6.3 (3.8-10.6) k/uL RBC 4.20 (3.80-5.40) m/uL Hgb 12.5 (11.4-16.0) gm/dL Hct 37.2 (34.0-46.0) % MCV 88.6 (80.0-100.0) fL MCH 29.7 (25.0-35.0) pg MCHC 33.5 (31.0-37.0) g/dL RDW 14.7 (11.5-15.5) % Plt Count 159 (150-450) k/uL MPV 8.8 Neutrophils % 46 % Lymphocytes % 38 % Monocytes % 5 % Eosinophils % 6 % Basophils % 1 % Neutrophils # 2.9 (1.3-7.7) k/uL Lymphocytes # 2.4 (1.0-4.8) k/uL Monocytes # 0.3 (0-1.0) k/uL Eosinophils # 0.4 (0-0.7) k/uL Basophils # 0.0 (0-0.2) k/uL PT 14.2 H (9.0-12.0) sec INR 1.4 H (<1.2) APTT 25.6 (22.0-30.0) sec Sodium 138 (137-145) mmol/L Potassium 4.1 (3.5-5.1) mmol/L Chloride 105 (98-107) mmol/L Carbon Dioxide 25 (22-30) mmol/L Anion Gap 8 mmol/L BUN 16 (7-17) mg/dL Creatinine 0.74 (0.52-1.04) mg/dL Est GFR (CKD-EPI)AfAm >90 (>60 ml/min/1.73 sqM) Est GFR (CKD-EPI)NonAf 89 (>60 ml/min/1.73 sqM) Glucose 100 H (74-99) mg/dL Calcium 9.1 (8.4-10.2) mg/dL Magnesium 2.0 (1.6-2.3) mg/dL Total Bilirubin 0.6 (0.2-1.3) mg/dL AST 32 (14-36) U/L ALT 17 (4-34) U/L Alkaline Phosphatase 76 (38-126) U/L Troponin I (0.000-0.034) ng/mL Total Protein 6.8 (6.3-8.2) g/dL Albumin 4.0 (3.5-5.0) g/dL 02/25/21 Range/Units 02:32 WBC (3.8-10.6) k/uL RBC (3.80-5.40) m/uL Hgb (11.4-16.0) gm/dL Hct (34.0-46.0) % MCV (80.0-100.0) fL MCH (25.0-35.0) pg MCHC (31.0-37.0) g/dL RDW (11.5-15.5) % Plt Count (150-450) k/uL MPV Neutrophils % % Lymphocytes % % Monocytes % % Eosinophils % % Basophils % % Neutrophils # (1.3-7.7) k/uL Lymphocytes # (1.0-4.8) k/uL Monocytes # (0-1.0) k/uL Eosinophils # (0-0.7) k/uL Basophils # (0-0.2) k/uL PT (9.0-12.0) sec INR (<1.2) APTT (22.0-30.0) sec Sodium (137-145) mmol/L Potassium (3.5-5.1) mmol/L Chloride (98-107) mmol/L Carbon Dioxide (22-30) mmol/L Anion Gap mmol/L BUN (7-17) mg/dL Creatinine (0.52-1.04) mg/dL Est GFR (CKD-EPI)AfAm (>60 ml/min/1.73 sqM) Est GFR (CKD-EPI)NonAf (>60 ml/min/1.73 sqM) Glucose (74-99) mg/dL Calcium (8.4-10.2) mg/dL Magnesium (1.6-2.3) mg/dL Total Bilirubin (0.2-1.3) mg/dL AST (14-36) U/L ALT (4-34) U/L Alkaline Phosphatase (38-126) U/L Troponin I <0.012 (0.000-0.034) ng/mL Total Protein (6.3-8.2) g/dL Albumin (3.5-5.0) g/dL - Radiology Data Two-view x-ray of the chest is obtained. Report reviewed in its entirety. Impression by Dr. Ellington shows normal chest. No change. Ultrasound venous Doppler duplex of the left upper extremity was performed. Report was reviewed in its entirety. Impression by Dr. Ellington shows no evidence of DVT in the left arm. (Sofia Petersen) Disposition <Rogers Gregorio - Last Filed: 02/25/21 03:14> Decision to Admit Reason: Admit from EC Decision Date: 02/25/21 Decision Time: 04:09 <Sofia Petersen - Last Filed: 02/25/21 04:09> Clinical Impression: Chest pain, Left arm pain Disposition: ADMITTED IP TO THIS [facility] Condition: Serious Additional Instructions: Rest. Take medication as directed for pain control. Follow-up with your primary care physician for recheck in 1-2 days. Return for any new, worsening, or concerning symptoms Prescriptions: Ibuprofen [Motrin] 600 mg PO Q8HR PRN #30 tab PRN Reason: Pain Referrals: Raymond Mcgovern DO [Primary Care Provider] - 1-2 days
--- NOTE | 2021-02-25 02:03 | US ---
EXAMINATION TYPE: US venous doppler duplex UE LT DATE OF EXAM: 02/24/2021 COMPARISON: NONE CLINICAL HISTORY: left arm pain/swelling. Left arm pain and swelling. No hx of DVT. Patient takes bab y aspirin. SIDE PERFORMED: Left Left Arm: No evidence of DVT in veins imaged at this time. There is patency of the subclavian and axillary and brachial veins. IMPRESSION: No evidence of deep vein thrombosis in the left arm.
[2021-02-25] MEDS ORDERED: ONDANSETRON 4 MG/2 ML VIAL IVP STA (02:27)
[2021-02-25] MEDS ORDERED: MORPHINE SULFATE 2 MG/ML SYRINGE IVP STA (02:27)
[2021-02-25 03:25] LABS: ALT 17 U/L (4-34); AST 32 U/L (14-36); African American GFR (CKD) >90 (>60 ml/min/1.73 sqM); Alkaline Phosphatase 76 U/L (38-126); Anion Gap 8 mmol/L; Basophils % (A) 1 %; Blood Urea Nitrogen 16 mg/dL (7-17); Calcium 9.1 mg/dL (8.4-10.2); Carbon Dioxide 25 mmol/L (22-30); Chloride 105 mmol/L (98-107); Eosinophils # (A) 0.4 k/uL (0-0.7); Eosinophils % (A) 6 %; Glucose 100 mg/dL (74-99); HCT 37.2 % (34.0-46.0); HGB 12.5 gm/dL (11.4-16.0); Lymphocytes # (A) 2.4 k/uL (1.0-4.8); Lymphocytes % (A) 38 %; MCH 29.7 pg (25.0-35.0); MCHC 33.5 g/dL (31.0-37.0); MCV 88.6 fL (80.0-100.0); Mean Platelet Volume 8.8; Monocytes # (A) 0.3 k/uL (0-1.0); Monocytes % (A) 5 %; Neutrophils # (A) 2.9 k/uL (1.3-7.7); Neutrophils % (A) 46 %; Non-African American GFR(CKD) 89 (>60 ml/min/1.73 sqM); Platelet Count 159 k/uL (150-450); Potassium 4.1 mmol/L (3.5-5.1); RDW 14.7 % (11.5-15.5); Sodium 138 mmol/L (137-145); Total Bilirubin 0.6 mg/dL (0.2-1.3); Total Protein 6.8 g/dL (6.3-8.2); WBC 6.3 k/uL (3.8-10.6)
[2021-02-25 03:27] LABS: INR 1.4 (<1.2); Partial Thromboplastin Time 25.6 sec (22.0-30.0); Prothrombin Time 14.2 sec (9.0-12.0)
--- NOTE | 2021-02-25 03:35 | XR ---
EXAMINATION TYPE: XR chest 2V DATE OF EXAM: 02/25/2021 COMPARISON: 05/03/2018 HISTORY: Chest pain TECHNIQUE: FINDINGS: Heart and mediastinum are normal. Lungs are clear. Diaphragm is normal. Bony thorax appears normal pulmonary vascularity is normal. IMPRESSION: Normal chest. No change.
[2021-02-25] MEDS ORDERED: ONDANSETRON 4 MG/2 ML VIAL IVP PRN (04:00)
[2021-02-25] MEDS ORDERED: NALOXONE 0.4 MG/ML 1 ML VIAL IV PRN (04:00)
[2021-02-25] MEDS ORDERED: MORPHINE SULFATE 4 MG/ML SYRINGE IV PRN (04:00)
[2021-02-25] MEDS ORDERED: ASPIRIN 81 MG PO STA (04:06)
[2021-02-25 07:46] VITALS: TEMP 97.7
[2021-02-25] MEDS ORDERED: FAMOTIDINE 20 MG/2 ML VIAL IV SCH (09:00)
[2021-02-25] MEDS ORDERED: ASPIRIN 325 MG TAB PO SCH (09:00)
[2021-02-25] MEDS ORDERED: HEPARIN SODIUM,PORCINE/PF 5,000 UNIT/0.5 ML SYRINGE SQ SCH (09:00)
[2021-02-25] MEDS ORDERED: ESCITALOPRAM 10 MG TAB PO SCH (09:00)
[2021-02-25] MEDS ORDERED: LOSARTAN 50 MG TAB PO SCH ×2 (09:00→21:00)
--- NOTE | 2021-02-25 12:05 | ECHOF ---
Referral Reason:chest pain MEASUREMENTS -------- HEIGHT: 152.4 cm WEIGHT: 103.0 kg BP: 157/82 IVSd: 1.4 cm (0.6 - 1.1) LVIDd: 4.6 cm (3.9 - 5.3) LVPWd: 1.6 cm (0.6 - 1.1) EDV(Teich): 99 ml IVSs: 1.7 cm LVIDs: 2.9 cm LVPWs: 1.4 cm %IVS Thck: 16 % ESV(Teich): 32 ml EF(Teich): 67 % %FS: 37 % SV(Teich): 66 ml RVIDd: 3.4 cm (< 3.3) LALs A4C: 4.5 cm LAAs A4C: 15.5 cm LAESV A-L A4C: 45 ml LAESV MOD A4C: 43 ml LALs A2C: 4.8 cm LAAs A2C: 19.1 cm LAESV A-L A2C: 64 ml LAESV MOD A2C: 62 ml LAESV(A-L): 55 ml LAESV Index (A-L): 28.04 ml/m Ao Diam: 3.4 cm (2.0 - 3.7) LA Diam: 3.8 cm (2.7 - 3.8) AV Cusp: 2.3 cm (1.5 - 2.6) MV E Latrell: 0.99 m/s MV DecT: [address]: 5.1 m/s MV A Latrell: 0.54 m/s MV E/A Ratio: 1.83 MV PHT: 56 ms LVOT Vmax: 0.90 m/s LVOT maxP.27 mmHg AV Vmax: 1.05 m/s AV maxP.41 mmHg TR Vmax: 2.64 m/s TR maxP.92 mmHg RAP: 5.00 mmHg RVSP: 32.92 mmHg FINDINGS -------- Sinus rhythm. This was a technically adequate study. The left ventricular size is normal. There is moderate concentric left ventricular hypertrophy. O verall left ventricular systolic function is normal with, an EF between 55 - 60 %. The diastolic fi lling pattern is normal for the age of the patient 13.01. The right ventricle is mildly enlarged. Normal LA size by volume 22+/-6 ml/m2. The right atrial size is normal. Interatrial and interventricular septum intact. There is no evidence of aortic regurgitation. There is no evidence of aortic stenosis. Mild mitral regurgitation is present. Mild tricuspid regurgitation present. There is no evidence of pulmonary hypertension. The right v entricular systolic pressure, as measured by Doppler, is 32.92mmHg. There is no pulmonic regurgitation present. The aortic root size is normal. IVC Not well visulized. There is no pericardial effusion. CONCLUSIONS -------- 1. The left ventricular size is normal. 2. There is moderate concentric left ventricular hypertrophy. 3. Overall left ventricular systolic function is normal with, an EF between 55 - 60 %. 4. The diastolic filling pattern is normal for the age of the patient 13.01 5. The right ventricle is mildly enlarged. 6. Mild mitral regurgitation is present. 7. Mild tricuspid regurgitation present. SLATE ROOFER: Kaitlin Lyons RDCS
--- NOTE | 2021-02-25 13:06 | P.HPIM ---
History of Present Illness This is a pleasant 61 years old female with past medical history of Coronary Artery Disease , CVA/TIA, Hyperlipidemia, Hypertension, Osteoarthritis , pituitary tumor present & stable since age 26, migraines, UTERINE CANCER at age 28 cryo procedure. CVA 2013 affected short term memory and rt arm mild weakness, essential tremor, she uses a cane at baseline Patient presents because yesterday she started having pain in her left elbow with limited flexion due to pain. She denies trauma or fall. She is right- handed. Also she had some chest pain last night so she was admitted with cardiology in consultation. Echocardiogram was unremarkable and Dr. Juarez cleared her for discharge. Her chest pain resolved. She denies dyspnea or dyspnea on exertion. No coughing. No hypoxia. No other symptoms like no change in urine or bowel habits. No fever. She denies smoking or illicit drugs. Alcohol occasionally. Vitas looks stable. She is mildly bradycardic 49-61. Blood pressure is slightly elevated at 157/82. Labs including CBC, BMP, liver enzymes and INR are unremarkable. Troponin 2 are negative less than 0.012. Fuentes virus is not detected. EKG shows sinus bradycardia with sinus arrhythmia at 51 with QTC 449 Chest x-ray: No acute process. Venous Doppler: Negative DVT in the left arm In the emergency room patient received Tylenol No. 3, aspirin 325 mg Review of Systems CONSTITUTIONAL: No fever, no malaise, no fatigue. HEENT: No recent visual problems or hearing problems. Denied any sore throat. CARDIOVASCULAR: No orthopnea, PND, no palpitations, no syncope. PULMONARY: No shortness of breath, no cough, no hemoptysis. GASTROINTESTINAL: No diarrhea, no nausea, no vomiting, no abdominal pain. Normoactive bowel sounds. NEUROLOGICAL: No headaches, no weakness, no numbness. HEMATOLOGICAL: Denies any bleeding or petechiae. GENITOURINARY: Denies any burning micturition, frequency, or urgency. MUSCULOSKELETAL/RHEUMATOLOGICAL: Denies any joint pain, swelling, or any muscle pain. ENDOCRINE: Denies any polyuria or polydipsia. Past Medical History Past Medical History: Coronary Artery Disease (CAD), Cancer, CVA/TIA, Hyperlipid emia, Hypertension, [place] Infarction ([place]), Osteoarthritis ([place]) Additional Past Medical History / Comment(s): pituitary tumor present & stable since age 26 -, migraines, UTERINE CANCER at age 28 cryo procedure. CVA 2013 affected short term memory and rt arm mild weakness, -ESSENTIAL TREMORS RIGHT SIDE CONTROLLED WITH PRIMADONE, USES A CANE Last Myocardial Infarction Date:: 2005 History of Any Multi-Drug Resistant Organisms: None Reported Past Surgical History: Bariatric Surgery, Section, Cholecystectomy, Heart Catheterization, Joint Replacement, Orthopedic Surgery, Tubal Ligation Additional Past Surgical History / Comment(s): gastric sleeve (converted to gastric bypass 12-09-18). RT FOOT SX plate/screw. RT TOTAL KNEE REPLACEMENT. EGD, colonoscopy Past Anesthesia/Blood Transfusion Reactions: No Reported Reaction Additional Past Anesthesia/Blood Transfusion Reaction / Comment(s): CLAUSTERPHOBIA. HAS NEVER RECEIVED ANY BLOOD TRNASFUSIONS Past Psychological History: Anxiety, Depression Additional Psychological History / Comment(s): PT LIVES AT HOME WITH SPOUSE AND HER MOTHER IN LAW.PT IS ON DISABILTY. DRIVES. USES CANE NEEDED Smoking Status: Vaper Past Alcohol Use History: Occasional Additional Past Alcohol Use History / Comment(s): STARTED SMOKING AT AGE 36(1995) QUIT SMOKING 2010 WAS A SOCIAL SMOKER ,A PACK WOULD LAST A MONTH Past Drug Use History: None Reported - Past Family History Mother Family Medical History: Diabetes Mellitus, Hyperlipidemia Additional Family Medical History / Comment(s): HEART PROBLEMS Father Family Medical History: AFIB, Congestive Heart Failure (CHF), Hyperlipidemia Medications and Allergies Home Medications Medication Instructions Recorded Confirmed Type Escitalopram Oxalate [Lexapro] 10 mg PO DAILY 02/17/15 02/25/21 History Primidone [Mysoline] 100 mg PO HS 02/17/15 02/25/21 History Calcium Carbonate/Vitamin D3 2 tab PO DAILY 03/31/20 02/25/21 History [Calcium 500 mg-Vit D3 5 Mcg (200 Unit)] Ascorbic Acid [Vitamin C] 1,000 mg PO DAILY 02/25/21 02/25/21 History Aspirin EC [Ecotrin Low Dose] 81 mg PO DAILY 02/25/21 02/25/21 History Atorvastatin [Lipitor] 20 mg PO DAILY #90 tablet 02/25/21 Rx Cholecalciferol [Vitamin D3 (25 50 mcg PO DAILY 02/25/21 02/25/21 History Mcg = 1000 Iu)] Ibuprofen [Motrin] 600 mg PO Q8HR PRN #30 tab 02/25/21 Rx Losartan [Cozaar] 50 mg PO BID #180 tab 02/25/21 Rx QUEtiapine [SEROquel] 50 mg PO HS 02/25/21 02/25/21 History Vitamin B Complex 1 cap PO DAILY 02/25/21 02/25/21 History rOPINIRole HCL [Requip] 0.5 mg PO HS 02/25/21 02/25/21 History traZODone HCL 25 mg PO HS 02/25/21 02/25/21 History Allergies Allergy/AdvReac Type Severity Reaction Status Date / Time eletriptan HBr [From Relpax] Allergy Severe Anaphylaxis Verified 02/25/21 07:25 bee venom protein (honey bee) Allergy Anaphylaxis Verified 02/25/21 07:25 Physical Exam Vitals: Vital Signs Temp Pulse Pulse Resp BP BP Pulse Ox 02/25/21 07:45 97.7 F 49 L 16 157/82 98 02/25/21 06:16 97.8 F 54 L 16 175/96 99 02/25/21 05:00 61 18 141/80 95 02/25/21 04:30 66 18 141/80 95 02/24/21 23:03 97.5 F L 55 L 24 190/76 99 Intake and Output 02/24/21 02/25/21 02/25/21 22:59 06:59 14:59 Other: Weight 102.965 kg GENERAL: The patient is alert and oriented x3, not in any acute distress. Well developed, well nourished. HEENT: Pupils are round and equally reacting to light. EOMI. No scleral icterus. No conjunctival pallor. Normocephalic, atraumatic. No pharyngeal erythema. No thyromegaly. CARDIOVASCULAR: S1 and S2 present. No murmurs, rubs, or gallops. PULMONARY: Chest is clear to auscultation, no wheezing or crackles. ABDOMEN: Soft, nontender, nondistended, normoactive bowel sounds. No palpable organomegaly. -MUSCULOSKELETAL: No joint swelling or deformity. Left elbow tenderness with limited flexion due to pain. No erythema or swelling. No wound or signs of trauma EXTREMITIES: No cyanosis, clubbing, or pedal edema. NEUROLOGICAL: Gross neurological examination did not reveal any focal deficits. SKIN: No rashes. No petechiae Results CBC & Chem 7: 02/25/21 02:32 02/25/21 02:32 Labs: Abnormal Lab Results - Last 24 Hours (Table) 02/25/21 02/25/21 Range/Units 02:32 02:32 PT 14.2 H (9.0-12.0) sec INR 1.4 H (<1.2) Glucose 100 H (74-99) mg/dL Thrombosis Risk Factor Assmnt - Choose All That Apply Each Factor Represents 1 point: Age 41-60 years, Obesity (BMI >25) Each Risk Factor Represents 3 Points: Family history of DVT/PE Thrombosis Risk Factor Assessment Total Risk Factor Score: 5 Thrombosis Risk Factor Assessment Level: High Risk Assessment and Plan Assessment: Left elbow pain and limited flexion Mild chest pain, resolved and cardiology cleared the patient Hypertension Hyperlipidemia History of coronary artery disease History of CVA Osteoarthritis History of pituitary tumor History of migraine History of uterine cancer. Essential tremor Plan: This is a pleasant 61 female who presents with chest pain and left elbow pain Serial troponin, cardiology consult Check left elbow x-ray and orthopedic consult Labs and medication were reviewed.. Continue same treatment. Continue with symptomatic treatment. Resume home medication. Monitor lytes and vitals. DVT and GI prophylaxis. Further recommendations depends on the clinical course of the patient DVT prophylaxis: Subcutaneous heparin GI Prophylaxis: Pepcid Prognosis is guarded
--- NOTE | 2021-02-25 13:39 | XR ---
EXAMINATION TYPE: XR elbow complete LT DATE OF EXAM: 02/25/2021 CLINICAL HISTORY: pain TECHNIQUE: Frontal, lateral and oblique images of the left elbow are obtained. COMPARISON: None. FINDINGS: There is no acute fracture/dislocation evident of the elbow. Prominent anterior fat pad in dicating underlying effusion. The overlying soft tissue appears unremarkable. IMPRESSION: There is no acute fracture or dislocation of the elbow.Prominent anterior fat pad indicating underly ing effusion. ICD 10 NO FRACTURE, INITIAL EVALUATION
[2021-02-25 14:39] VITALS: BP 130/76; PULSE 55; RESP 18
[2021-02-25 17:03] LABS: Chol/HDL Ratio 3.05 Ratio; HDL Cholesterol 50.2 mg/dL (40.00-60.00); LDL Cholesterol,Calculated 87.9 mg/dL (0.0-131.0); Triglycerides 74.3 mg/dL (0.00-149.00); VLDL Calculation 14.86 mg/dL (5.00-40.00)
[2021-02-25] MEDS ORDERED: PRIMIDONE 50 MG TAB PO SCH (21:00)
[2021-02-25] MEDS ORDERED: FAMOTIDINE 20 MG TAB PO SCH (21:00)
[2021-02-25] MEDS ORDERED: traZODone HCL 50 MG TAB PO SCH (21:00)
[2021-02-25] MEDS ORDERED: QUEtiapine 50 MG TAB PO SCH (21:00)
[2021-02-26] MEDS ORDERED: ASPIRIN 81 MG PO SCH (09:00)
[2021-02-26] MEDS ORDERED: ATORVASTATIN 20 MG TAB PO SCH (09:00)
== END 2021-02-25 19:30 | disposition home or self-care (01) ==
LOC: EC 23:01 → 6NMEDSUR 02-25 03:53
PROVIDERS: ADMIT Internal Medicine; ATTEND Internal Medicine
DX: M25.522 Pain in left elbow (principal); R07.2 Precordial pain; I10 Essential (primary) hypertension; E78.5 Hyperlipidemia, unspecified; I25.10 Atherosclerotic heart disease of native coronary artery without angina pectoris; I69.311 Memory deficit following cerebral infarction; I69.351 Hemiplegia and hemiparesis following cerebral infarction affecting right dominant side; M19.90 Unspecified osteoarthritis, unspecified site; Z86.018 Personal history of other benign neoplasm; G43.909 Migraine, unspecified, not intractable, without status migrainosus; G25.0 Essential tremor; F41.9 Anxiety disorder, unspecified; F40.240 Claustrophobia; F32.9 Major depressive disorder, single episode, unspecified; F17.200 Nicotine dependence, unspecified, uncomplicated; R00.1 Bradycardia, unspecified; E66.9 Obesity, unspecified; Z68.41 Body mass index [BMI] 40.0-44.9, adult; I25.2 Old myocardial infarction; I08.1 Rheumatic disorders of both mitral and tricuspid valves; Z20.822 Contact with and (suspected) exposure to COVID-19; Z85.42 Personal history of malignant neoplasm of other parts of uterus; Z88.8 Allergy status to other drugs, medicaments and biological substances; Z91.030 Bee allergy status; Z79.899 Other long term (current) drug therapy; Z79.82 Long term (current) use of aspirin; Z90.49 Acquired absence of other specified parts of digestive tract; Z98.84 Bariatric surgery status; Z96.651 Presence of right artificial knee joint; Z83.3 Family history of diabetes mellitus; Z82.49 Family history of ischemic heart disease and other diseases of the circulatory system; Z83.438 Family history of other disorder of lipoprotein metabolism and other lipidemia; Z83.2 Family history of diseases of the blood and blood-forming organs and certain disorders involving the immune mechanism
CPT/HCPCS: 96372; 96375; 96374; 99285; 36415; 93005; 93306; 80053; 80061; 84443; 83735; 84484; 85025; 85610; 85730; 83036; 87635; 73080; 71046; 93971; G0378; J2270; J1644

== ENCOUNTER → 2021-04-04 | Outpatient (CLI) | payer MEDICARE ==
[2021-04-04 20:32] LABS: ALT 15 U/L (8-44); AST 19 U/L (13-35); Chol/HDL Ratio 2.27 Ratio; LDL Cholesterol,Calculated 52.9 mg/dL (0.0-131.0)
== END | disposition home or self-care (01) ==
LOC: LABWHC1 12:13
PROVIDERS: ATTEND Internal Medicine Interventional Cardiology
DX: E78.2 Mixed hyperlipidemia (principal)
CPT/HCPCS: 36415; 80061; 84450; 84460

== ENCOUNTER → 2021-05-12 | Outpatient (CLI) | payer MEDICARE ==
[2021-05-12 15:18] LABS: Basophils # (A) 0.1 k/uL (0-0.2); Basophils % (A) 1 %; Eosinophils # (A) 0.3 k/uL (0-0.7); Eosinophils % (A) 5 %; HCT 38.9 % (34.0-46.0); HGB 12.1 gm/dL (11.4-16.0); Lymphocytes # (A) 1.6 k/uL (1.0-4.8); Lymphocytes % (A) 26 %; MCH 29.2 pg (25.0-35.0); MCHC 31.1 g/dL (31.0-37.0); MCV 93.7 fL (80.0-100.0); Mean Platelet Volume 9.1; Monocytes # (A) 0.5 k/uL (0-1.0); Monocytes % (A) 7 %; Neutrophils # (A) 3.7 k/uL (1.3-7.7); Neutrophils % (A) 59 %; Platelet Count 163 k/uL (150-450); RBC 4.16 m/uL (3.80-5.40); RDW 14.1 % (11.5-15.5); WBC 6.4 k/uL (3.8-10.6)
[2021-05-12 15:37] LABS: Potassium 4.2 mmol/L (3.5-5.1)
== END | disposition home or self-care (01) ==
LOC: LABWHC1 14:27
PROVIDERS: ATTEND Internal Medicine Interventional Cardiology
DX: Z01.812 Encounter for preprocedural laboratory examination (principal); R07.9 Chest pain, unspecified
CPT/HCPCS: 36415; 80051; 82565; 84520; 85025

== ENCOUNTER 2021-05-18 06:28 | Day surgery (SDC) | payer MEDICARE ==
[2021-05-12 12:22] VITALS: BMI 42.3
[~2021-05-18 06:28] MED LIST changes: -ACETAMINOPHEN TAB 500 MG TAB PO ONE; +ALPRAZolam 0.25 MG TAB PO PRN; +ALPRAZolam 0.5 MG TAB PO PRN; +ASPIRIN 325 MG TAB PO STA; +ATORVASTATIN 80 MG TAB PO STA; -DEXAMETHASONE SOD PHOSPHATE 10 MG/ML 1 ML VIAL IV ONE; -FAMOTIDINE 20 MG/2 ML VIAL IV PRN; -HYDROmorphone 1 MG/ML 1 ML SYRINGE IVP PRN; -LIDOCAINE 1% 20 ML VIAL (10MG/ML) FOR IV START INTRADERMA PRN; -MELOXICAM 7.5 MG TAB PO ONE; -MIDAZOLAM 2 MG/2 ML VIAL IV PRN; +NITROGLYCERIN SL TABS 0.4 MG TAB SUBLINGUAL PRN; -ONDANSETRON 4 MG/2 ML VIAL IVP ONE; +SODIUM CHLORIDE 0.9% 1,000 ML in EMPTY BAG 1 BAG IV SCH; -TRANEXAMIC ACID 1,000 MG in SODIUM CHLORIDE 0.9% 100 ML IVPB ONE; -ceFAZolin 2 GM in SODIUM CHLORIDE 0.9% 100 ML IVPB ONE
[2021-05-18 06:59] VITALS: RESP 18; TEMP 98.6
[2021-05-18] MEDS ORDERED: ASPIRIN 81 MG ONE (07:00)
[2021-05-18] MEDS ORDERED: HEPARIN SODIUM 1,000 UN/ML (10ML VL) ONE (07:27)
[2021-05-18] MEDS ORDERED: fentaNYL (PF) 50 MCG/ML 2 ML AMP ONE (07:27)
[2021-05-18] MEDS ORDERED: fentaNYL (PF) 50 MCG/ML 2 ML AMP IVP ONE (07:31)
[2021-05-18] MEDS ORDERED: MIDAZOLAM 2 MG/2 ML VIAL IVP ONE (07:34)
[2021-05-18] MEDS ORDERED: LIDOCAINE 1% INJ 10MG/ML (20 ML MDV) SQ ONE (07:34)
[2021-05-18] MEDS ORDERED: VERAPAMIL SYRINGE (5 MG/10 ML) INTRAARTER ONE (07:35)
[2021-05-18] MEDS ORDERED: HEPARIN SODIUM 1,000 UN/ML (10ML VL) IVP ONE (07:38)
[2021-05-18] MEDS ORDERED: IOPAMIDOL-370 100ML BTL INJ ONE (07:51)
[2021-05-18] MEDS ORDERED: RX INFO: IV CONTRAST WAS GIVEN 1 EACH MISC MISCELLANE PRN (08:01)
[2021-05-18] MEDS ORDERED: SODIUM CHLORIDE 0.9% 1,000 ML IV SCH (08:15)
[2021-05-18] MEDS ORDERED: LOSARTAN 50 MG TAB PO SCH (09:00)
[2021-05-18] MEDS ORDERED: ATORVASTATIN 20 MG TAB PO SCH (09:00)
[2021-05-18] MEDS ORDERED: ESCITALOPRAM 20 MG TAB PO SCH (09:00)
--- NOTE | 2021-05-18 12:36 | CC ---
CARDIAC CATHETERIZATION REPORT Ms. Pardo is a 61-year-old female known history of hypertension, hyperlipidemia as well as mild coronary artery disease who has been complaining of progressive dyspnea on exertion as well as chest discomfort. She had probably abnormal myocardial perfusion imaging. Because of her persistent symptoms, recommendation made regarding cardiac catheterization. The procedure as well as the risks and the complications were discussed with the patient who is in full understanding and agreement. PROCEDURE DESCRIPTION: Patient was brought to labor arbitrator hearing office in a fasting semi-sedated state. After receiving fentanyl and Benadryl and achieving moderate conscious sedated state, using Xylocaine anesthesia and Seldinger technique, a 6-Wallisian sheath was introduced in the right radial artery. Selective right and left coronary angiography performed using 5-Wallisian 3.5 bend right and left Wendy catheter. Multiple views of the coronary arteries including hemiaxial views obtained. Following that, a 5-Wallisian tight pigtail catheter was introduced into the left ventricle and a 30-degree FRANKS view of the left ventricle was obtained. Following that, catheter and sheath were removed. Hemostasis was obtained with deployment of a TR band. There was no immediate complication. Patient was returned to her room in stable condition. Of note, the patient received 5000 units of intravenous heparin as well as intra-arterial verapamil. FINDINGS: LEFT MAIN: This is a large-sized vessel bifurcating into left circumflex, left anterior descending coronary artery, left main coronary artery has no evidence of high-grade stenosis. LEFT ANTERIOR DESCENDING ARTERY: This is a large-sized vessel reaching to the apex, tapers down distally, gives rise to a moderately sized diagonal branch in the mid segment. The left anterior descending artery in the mid segment after the takeoff of the diagonal branch has a 10% to 20% plaque. The rest of the vessel has no high-grade stenosis. LEFT CIRCUMFLEX: This is a large nondominant vessel giving rise to a large obtuse marginal branch. The left circumflex as well as branches have no evidence of obstructive coronary artery disease. RIGHT CORONARY ARTERY: This is a dominant vessel, large in caliber bifurcating distally into PDA and posterolateral segment and branches. The right coronary artery in the proximal segment has a 10% plaque. The rest of the vessel has no high-grade stenosis. LEFT VENTRICULOGRAM: Left ventriculogram was performed in 30-degree FRANKS view and revealed normal left ventricular size and systolic function. Ejection fraction was 60%. There was no significant mitral regurgitation. HEMODYNAMICS: There was no gradient across the aortic valve. The left ventricular end-diastolic pressure spears was 10-12 mmHg. CONCLUSION: 1. Mild obstructive disease involving the LAD of the right coronary artery. 2. Normal left ventricular size and systolic function. RECOMMENDATIONS: In view of findings and anatomy, I recommend continued medical therapy with aggressive coronary risk factor modifications that have been initiated. Those findings and recommendations were discussed with the patient and her family, and they are in full understanding and agreement. Duration of sedation is 19 minutes. MMODL / IJN: [id number] /
[2021-05-18 12:59] VITALS: BP 111/60; PULSE 50
[2021-05-18] MEDS ORDERED: NON FORMULARY DRUG (Aspirin Ec 81 MG Tablet) PO SCH (21:00)
== END 2021-05-18 12:45 | disposition home or self-care (01) ==
LOC: CATHCVL 06:28
PROVIDERS: ATTEND Internal Medicine Interventional Cardiology
DX: I25.10 Atherosclerotic heart disease of native coronary artery without angina pectoris (principal); I10 Essential (primary) hypertension; E78.5 Hyperlipidemia, unspecified; Z82.49 Family history of ischemic heart disease and other diseases of the circulatory system; Z72.0 Tobacco use; R94.39 Abnormal result of other cardiovascular function study; Z20.822 Contact with and (suspected) exposure to COVID-19; Z90.49 Acquired absence of other specified parts of digestive tract; Z98.891 History of uterine scar from previous surgery; Z98.84 Bariatric surgery status; Z98.890 Other specified postprocedural states; Z86.73 Personal history of transient ischemic attack (TIA), and cerebral infarction without residual deficits; M19.90 Unspecified osteoarthritis, unspecified site; E23.7 Disorder of pituitary gland, unspecified; Z79.82 Long term (current) use of aspirin; Z79.899 Other long term (current) drug therapy; Z88.8 Allergy status to other drugs, medicaments and biological substances; E78.00 Pure hypercholesterolemia, unspecified
CPT/HCPCS: 93458; 87635; C1894; C1769; J2250; J2001; J3010; J1644; Q9967

== ENCOUNTER → 2021-06-22 | Outpatient (CLI) | payer MEDICARE ==
[2021-06-22 15:43] VITALS: BP 170/83; PULSE 70; RESP 16; TEMP 98.1; BMI 39.4
--- NOTE | 2021-06-22 15:49 | P.HPBAR ---
Bariatric H&P - History & Physicial H&P Date: 06/22/21 History & Physicial: Visit/CC: f/u Patient initial contact: Initial weight: 266.5 kg Initial weight in pounds: 587.53 Height: 5 ft 3 in Initial BMI: 104.0 Last weight: Current weight: 101.151 kg Current weight in pounds: 223.00 Current BMI: 39.4 [place] body weight (based on NIH guidelines): 52.163 kg Excess body weight loss: 77.1% The patient is a 61 year-old F who presents for Bariatric Assessment. DATE OF SERVICE: 06/22/2021 CHIEF COMPLAINT: Status post gastric bypass HISTORY OF PRESENT ILLNESS: Alessandra Pardo is a 61-year-old female who is status revision from sleeve to gastric bypass, 12/02/18. She is 3 year out. She comes in with multiple deaths in her family at least 6 in the past year. She is 3 years out from her bypass. Her weight is stable from 2 years ago 222 now 223. No troubles with swallowing or belly pain. She is looking into more weight loss and wants to loose at least 50 pounds. Her BMI is 39.5. She has troubles with her teeth and cannot chew. She has food getting stuck in her throat. At height of 5 feet 3 inches, her ideal body weight is 140 pounds. She comes in 223 pounds from 222 pounds, 2 years ago. She has gained 1 pounds in 2 years. Her highest weight was 335 pounds. Her body mass index highest was 59.5. Today her BMI is 39.5. She has lost 112 pounds. Her lifetime percent excess weight loss is 58 %. She is 83 pounds overweight. PAST MEDICAL HISTORY: 1. Morbid obesity due to excess calories 2. Body mass index of 59.5, initial 3. Osteoarthritis of the knees. 4. Coronary artery disease 5. Osteoarthritis of the lower back. 6. Hypertensive heart disease. 7. CVA/TIA 8. Gastroesophageal reflux disease 9. Myocardial infarction 10. Hyperlipidemia 11. Pituitary tumor 12. Migraines 13. Depressive disorder 14. Obstructive sleep apnea 15. Panniculitis 16. Uterine cancer 17. Anxiety 18. Depressive disorder PAST SURGICAL HISTORY: 1. Sleeve gastrectomy 2. section 3. Tubal ligation 4. Cholecystectomy 5. Heart catheterization 6. Right foot surgery 7. Right knee replacement 8. Upper endoscopy 9. Gastric bypass HOME MEDICATIONS: Home Medications Medication Instructions Recorded Confirmed Escitalopram Oxalate [Lexapro] 10 mg PO QA 02/17/15 07/25/21 Primidone [Mysoline] 100 mg PO HS 02/17/15 07/25/21 Calcium Carbonate/Vitamin D3 2 tab PO DAILY 03/31/20 07/25/21 [Calcium 500 mg-Vit D3 5 mcg (200 Unit)] Ascorbic Acid [Vitamin C] 1,000 mg PO DAILY 02/25/21 07/21/21 Aspirin EC [Ecotrin Low Dose] 81 mg PO HS 02/25/21 07/25/21 Cholecalciferol [Vitamin D3 (25 50 mcg PO DAILY 02/25/21 07/25/21 Mcg = 1000 Iu)] QUEtiapine [SEROquel] 50 mg PO HS 02/25/21 07/25/21 Vitamin B Complex 1 cap PO DAILY 02/25/21 07/25/21 rOPINIRole HCL [Requip] 0.5 mg PO HS 02/25/21 07/25/21 traZODone HCL 25 mg PO HS 02/25/21 07/25/21 Calcium Carbonate [Calcium] 500 mg PO DAILY 05/12/21 07/25/21 Inulin/Chromium Picolinate [Fiber 1 tab PO DAILY 05/12/21 07/25/21 Gummies Chew] Losartan [Cozaar] 100 mg PO DAILY 05/12/21 07/25/21 Multivitamins, Thera [Multivitamin 1 tab PO DAILY 05/12/21 07/25/21 (formulary)] Previous Rx's Medication Instructions Recorded Atorvastatin [Lipitor] 20 mg PO DAILY #90 tablet 02/25/21 Famotidine [Pepcid] 20 mg PO BID #60 tab 02/25/21 ALLERGIES: Allergies Allergy/AdvReac Type Severity Reaction Status Date / Time eletriptan HBr [From Relpax] Allergy Severe Anaphylaxis Verified 07/25/21 08:15 bee venom protein (honey bee) Allergy Anaphylaxis Verified 07/25/21 08:15 SOCIAL HISTORY: Past tobacco use. FAMILY HISTORY: No family history of ulcerative colitis disease or Crohn's disease. Family history of morbid obesity. No lupus in the family. No reports of stomach or esophageal cancer. REVIEW OF ORGAN SYSTEMS: CONSTITUTIONAL: At height of 5 feet 3 inches, her ideal body weight is 140 po unds. Her highest weight was 335 pounds. Her body mass index highest was 59.5. HEENT: Denies any active troubles with vision or hearing. No troubles with swallowing. ENDOCRINE: No diabetes. No hypothyroidism. CARDIOVASCULAR: No reports of palpitations. Past heart attacks and chest pain. She was on 2 blood pressure medications and is now off of them. RESPIRATORY: Has daytime somnolence. No asthma. GI: Denies any bright red blood per rectum. No diarrhea. Has constipation. MUSCULOSKELETAL: Has lower back pain and joint pain. Has osteoarthritis of the knees. NEURO: No headaches. No seizure disorders. Past history of stroke. PSYCH: Has depression. No suicidal ideation. RHEUMATOLOGIC: No lupus. No rheumatoid arthritis. HEMATOLOGIC: Denies any abnormal bleeding or bruising. No personal history of DVTs. SKIN: No rash. No skin cancer. PHYSICAL EXAM: VITAL SIGNS: Height 5 foot 3 inches, weight 223 pounds. BMI 39.5 Vital Signs Temp 98.1 F 06/22/21 15:40 Pulse 70 06/22/21 15:40 Resp 16 06/22/21 15:40 BP 170/83 06/22/21 15:40 Pulse Ox GENERAL: Well-developed in no acute distress. HEENT: No scleral icterus. Extraocular movements grossly intact. Hears conversational speech. No nasal drainage. NECK: Supple without lymphadenopathy. CHEST: Nonlabored respirations with equal bilateral excursions. CARDIOVASCULAR: Regular rate and regular rhythm. Distal 2+ pulses. ABDOMEN: No hernia. Nontender. No infection. MUSCULOSKELETAL: No clubbing, cyanosis. NEURO: No focal or lateralizing signs. Cranial nerves 2 through 12 grossly within normal limits. PSYCH: Appropriate affect. Alert and oriented to person, place and time. SKIN: Good skin turgor. Well perfused. LABS: Reviewed. Vitamin D low. Zinc low. ASSESSMENT: 1. Morbid obesity due to excess calories 2. Body mass index of 59.5, initial to 39.5 3. Osteoarthritis of the knees. 4. Coronary artery disease 5. Osteoarthritis of the lower back. 6. Hypertensive heart disease, improved. 7. History of CVA/TIA 8. Gastroesophageal reflux disease 9. Myocardial infarction 10. Hyperlipidemia 11. Pituitary tumor 12. Migraines 13. Depressive disorder 14. Obstructive sleep apnea 15. Panniculitis 16. History of uterine cancer 17. Anxiety 18. Depressive disorder 19. 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 Status post gastric bypass 21. Vitamin D deficiency 22. Secondary hyperparathyroidism 23. Zinc deficiency 24. Dysphagia PLAN: 1. Recommend bariatric labs. 2. Recommen food diary journal for weight loss. 3. She has food getting stuck. Recommend upper scope. 4. She is elevated risk for complications for perforation. Past Medical History Past Medical History: Coronary Artery Disease (CAD), Cancer, CVA/TIA, Hearing Disorder / Deafness, Hypertension, Memory Impairment, Myocardial Infarction ([place]), Osteoarthritis (OA) Additional Past Medical History / Comment(s): Pituitary tumor present & stable since age 26, migraines, hx uterine cancer at age 28, had cryo procedure, hx CVA 2013 - affected short term memory and has mild right arm weakness, essential tremors right arm, bilateral hearing aid use. Last Myocardial Infarction Date:: 2002 History of Any Multi-Drug Resistant Organisms: None Reported Past Surgical History: Bariatric Surgery, Section, Cholecystectomy, Heart Catheterization, Joint Replacement, Orthopedic Surgery, Tubal Ligation Additional Past Surgical History / Comment(s): Gastric sleeve (converted to gastric bypass 12-09-18), RIGHT FOOT SURGERY (plate/screw), RIGHT TOTAL KNEE REPLACEMENT, EGD, colonoscopy, right wrist carpal tunnel surgery X2. Past Anesthesia/Blood Transfusion Reactions: Previous Problems w/ Anesthesia Additional Past Anesthesia/Blood Transfusion Reaction / Comm: CLAUSTERPHOBIA. HAS NEVER RECEIVED ANY BLOOD TRNASFUSIONS. Slow to wake up. Past Psychological History: ADD/ADHD Additional Psychological History / Comment(s): PT LIVES AT HOME WITH SPOUSE AND HER MOTHER IN LAW.PT IS ON DISABILTY. DRIVES. USES CANE NEEDED Smoking Status: Former smoker, Vaper Past Alcohol Use History: Rare Additional Past Alcohol Use History / Comment(s): STARTED SMOKING AT AGE 36(1995), QUIT SMOKING IN 2010, WAS A SOCIAL SMOKER, A PACK WOULD LAST A MONTH. Now vapes 3 times a day. Past Drug Use History: None Reported - Past Family History Mother Family Medical History: Diabetes Mellitus, Hyperlipidemia Additional Family Medical History / Comment(s): HEART PROBLEMS. Father Family Medical History: AFIB, Congestive Heart Failure (CHF), Hyperlipidemia Surgical - Exam Vital Signs Temp Pulse Resp BP 98.1 F 70 16 170/83 06/22/21 15:40 06/22/21 15:40 06/22/21 15:40 06/22/21 15:40 Results - Labs 06/22/21 16:07 06/22/21 16:07 Bariatric Checklist Checklist: Plan: Checklist: EGD: 1. Hiatal hernia: 2. H. Pylori: HgbA1c: Vitamin D: Smoking: Former smoker Primary care physician referral: Raymond Mcgovern Psychiatry clearance: Cardiology clearance: Sleep study: Diet journal: VTE risk score: VTE risk level: Rehab needs at discharge:
[2021-06-22 16:37] LABS: Partial Thromboplastin Time 22.2 sec (22.0-30.0); Prothrombin Time 10.5 sec (9.0-12.0)
[2021-06-22 19:26] LABS: HCT 38.9 % (37.2-46.3); HGB 12.6 g/dL (12.0-15.0); MCH 29.4 pg (27.0-32.0); MCHC 32.4 g/dL (32.0-37.0); MCV 90.9 fL (80.0-97.0); Mean Platelet Volume 12.8 fL (9.5-12.2); NRBC Per 100 WBC 0 /100 WBCS (0.0-0.0); Platelet Count 199 X 10*3/uL (140-440); RBC 4.28 X 10*6/uL (4.10-5.20); RDW 13.7 % (11.5-14.5); WBC 6.56 X 10*3/uL (4.50-10.00)
[2021-06-22 19:36] LABS: ALT 19 U/L (8-44); AST 22 U/L (13-35); African American GFR (CKD) 80.5 (60.0-200.0); Albumin 4.4 g/dL (3.8-4.9); Albumin/Globulin Ratio 1.91 (1.60-3.17); Alkaline Phosphatase 89 U/L (41-126); BUN/Creat Ratio 15.56 Ratio (12.00-20.00); Carbon Dioxide 23.4 mmol/L (20.0-27.5); Chloride 106 mmol/L (96-109); Globulin 2.3 g/dL (1.6-3.3); Glucose 100 mg/dL (70-110); Non-African American GFR(CKD) 69.5 (60.0-200.0); Phosphorus 4.3 mg/dL (2.4-5.1); Potassium 4.3 mmol/L (3.5-5.5); Sodium 141 mmol/L (135-145); Total Protein 6.7 g/dL (6.2-8.2)
[2021-06-22 19:37] LABS: % Iron Saturation 13.19 (12.00-45.00); Ferritin 13.9 ng/mL (10.0-291.0); Iron 57 ug/dL (50-170); Total Iron Binding Capacity 428 ug/dL (228-460)
[2021-06-23 03:49] LABS: Chol/HDL Ratio 2.15 Ratio; LDL Cholesterol,Calculated 48.5 mg/dL (0.0-131.0); Prealbumin 20.3 mg/dL (18.0-42.0); VLDL Calculation 15.78 mg/dL (5.00-40.00)
[2021-06-23 13:05] LABS: Zinc, Serum 72 ug/dL (60-130)
[2021-06-24 09:13] LABS: Vitamin A 44 ug/dL (38-106)
[2021-06-25 12:59] LABS: Selenium 124 mcg/L (63-160)
[2021-06-29 10:56] LABS: Vit B1(Thiamine) 79 ug/L (38-122)
== END ==
LOC: BARWHC3 14:26
PROVIDERS: ATTEND Surgery Plastic and Reconstructive Surgery
DX: E66.01 Morbid (severe) obesity due to excess calories (principal); Z68.39 Body mass index [BMI] 39.0-39.9, adult; M17.0 Bilateral primary osteoarthritis of knee; I25.10 Atherosclerotic heart disease of native coronary artery without angina pectoris; M47.9 Spondylosis, unspecified; I11.9 Hypertensive heart disease without heart failure; Z86.73 Personal history of transient ischemic attack (TIA), and cerebral infarction without residual deficits; K21.9 Gastro-esophageal reflux disease without esophagitis; I25.2 Old myocardial infarction; E78.5 Hyperlipidemia, unspecified; G43.909 Migraine, unspecified, not intractable, without status migrainosus; D49.7 Neoplasm of unspecified behavior of endocrine glands and other parts of nervous system; F32.A Depression, unspecified; G47.33 Obstructive sleep apnea (adult) (pediatric); M79.3 Panniculitis, unspecified; K95.09 Other complications of gastric band procedure; E55.9 Vitamin D deficiency, unspecified; E21.1 Secondary hyperparathyroidism, not elsewhere classified; E60 Dietary zinc deficiency; R13.10 Dysphagia, unspecified; F41.9 Anxiety disorder, unspecified; Z85.42 Personal history of malignant neoplasm of other parts of uterus; Z79.82 Long term (current) use of aspirin; Z91.030 Bee allergy status; Z87.891 Personal history of nicotine dependence; Z88.6 Allergy status to analgesic agent
CPT/HCPCS: 84255; 84134; 84425; 80061; 80053; 82607; 82728; 82525; 82746; 83540; 83550; 83735; 84100; 84443; 84590; 84630; 85027; 85610; 85730; 82306; 83970; 83036; G0463; 99211

== ENCOUNTER 2021-07-25 08:02 | Day surgery (SDC) | payer MEDICARE ==
[2021-07-21 11:19] VITALS: BMI 41.5
[~2021-07-25 08:02] MED LIST changes: -ALPRAZolam 0.25 MG TAB PO PRN; -ALPRAZolam 0.5 MG TAB PO PRN; -ASPIRIN 325 MG TAB PO STA; -ATORVASTATIN 80 MG TAB PO STA; +LACTATED RINGERS 1,000 ML IV SCH; +LIDOCAINE 1% (10MG/ML) FOR IV START INTRADERMA PRN; -NITROGLYCERIN SL TABS 0.4 MG TAB SUBLINGUAL PRN; -SODIUM CHLORIDE 0.9% 1,000 ML in EMPTY BAG 1 BAG IV SCH
[2021-07-25 08:32] VITALS: TEMP 98.6
[2021-07-25] MEDS ORDERED: PROPOFOL 10 MG/ML 20 ML VIAL IV ONE (08:37)
[2021-07-25] MEDS ORDERED: LIDOCAINE 1% INJ 10MG/ML (20 ML MDV) ONE (08:37)
--- NOTE | 2021-07-25 08:54 | P.GSHP ---
History of Present Illness H&P Date: 07/25/21 CHIEF COMPLAINT: GERD HISTORY OF PRESENT ILLNESS: The patient is a 61-year-old female who presents reports gastroesophageal reflux disease. Upper endoscopy was offered for further evaluation and management. PAST MEDICAL HISTORY: Please see list. PAST SURGICAL HISTORY: Please see list. MEDICATIONS: Please see list. ALLERGIES: Please see list. SOCIAL HISTORY: No illicit drug use FAMILY HISTORY: No reports of Crohn disease or ulcerative colitis. REVIEW OF ORGAN SYSTEMS: CONSTITUTIONAL: No reports of fevers or chills. GI: Denies any blood in stools or constipation. PHYSICAL EXAM: VITAL SIGNS: Stable GENERAL: Well-developed and pleasant in no acute distress. HEENT: No scleral icterus. Extraocular movements grossly intact. Moist buccal mucosa. NECK: Supple without lymphadenopathy. CHEST: Unlabored respirations. Equal bilateral excursions. CARDIOVASCULAR: Regular rate and rhythm. Distal 2+ pulses. ABDOMEN: Soft, nondistended. MUSCULOSKELETAL: No clubbing, cyanosis, or edema. ASSESSMENT: 1. Gastroesophageal reflux disease PLAN: 1. Recommend proceeding with an upper endoscopy Past Medical History Past Medical History: Coronary Artery Disease (CAD), Cancer, CVA/TIA, GERD/Reflux, Hearing Disorder / Deafness, Hyperlipidemia, Hypertension, Memory Impairment, Myocardial Infarction ([place]), Osteoarthritis (OA) Additional Past Medical History / Comment(s): Pituitary tumor present & stable since age 26, migraines, hx uterine cancer at age 28, had cryo procedure, hx CVA 2014 - affected short term memory and has mild right arm weakness, essential tremors right arm, bilateral hearing aid use. Last Myocardial Infarction Date:: 2002 History of Any Multi-Drug Resistant Organisms: None Reported Past Surgical History: Bariatric Surgery, Section, Cholecystectomy, Heart Catheterization, Joint Replacement, Orthopedic Surgery, Tubal Ligation Additional Past Surgical History / Comment(s): Gastric sleeve (converted to gastric bypass 12-09-18), RIGHT FOOT SURGERY (plate/screw), RIGHT TOTAL KNEE REPLACEMENT, EGD, colonoscopy, right wrist carpal tunnel surgery X2. Past Anesthesia/Blood Transfusion Reactions: Previous Problems w/ Anesthesia Additional Past Anesthesia/Blood Transfusion Reaction / Comment(s): CLAUSTROPHOBIA. HAS NEVER RECEIVED ANY BLOOD TRNASFUSIONS. Slow to wake up. Smoking Status: Former smoker, Vaper - Past Family History Mother Family Medical History: Diabetes Mellitus, Hyperlipidemia Additional Family Medical History / Comment(s): HEART PROBLEMS. Father Family Medical History: AFIB, Congestive Heart Failure (CHF), Hyperlipidemia Medications and Allergies Home Medications Medication Instructions Recorded Confirmed Type Escitalopram Oxalate [Lexapro] 10 mg PO QAM 02/17/15 07/25/21 History Primidone [Mysoline] 100 mg PO HS 02/17/15 07/25/21 History Calcium Carbonate/Vitamin D3 2 tab PO DAILY 03/31/20 07/25/21 History [Calcium 500 mg-Vit D3 5 mcg (200 Unit)] Ascorbic Acid [Vitamin C] 1,000 mg PO DAILY 02/25/21 07/21/21 History Aspirin EC [Ecotrin Low Dose] 81 mg PO HS 02/25/21 07/25/21 History Atorvastatin [Lipitor] 20 mg PO DAILY #90 tablet 02/25/21 07/25/21 Rx Cholecalciferol [Vitamin D3 (25 50 mcg PO DAILY 02/25/21 07/25/21 History Mcg = 1000 Iu)] Famotidine [Pepcid] 20 mg PO BID #60 tab 02/25/21 07/25/21 Rx QUEtiapine [SEROquel] 50 mg PO HS 02/25/21 07/25/21 History Vitamin B Complex 1 cap PO DAILY 02/25/21 07/25/21 History rOPINIRole HCL [Requip] 0.5 mg PO HS 02/25/21 07/25/21 History traZODone HCL 25 mg PO HS 02/25/21 07/25/21 History Calcium Carbonate [Calcium] 500 mg PO DAILY 05/12/21 07/25/21 History Inulin/Chromium Picolinate [Fiber 1 tab PO DAILY 05/12/21 07/25/21 History Gummies Chew] Losartan [Cozaar] 100 mg PO DAILY 05/12/21 07/25/21 History Multivitamins, Thera [Multivitamin 1 tab PO DAILY 05/12/21 07/25/21 History (formulary)] Allergies Allergy/AdvReac Type Severity Reaction Status Date / Time eletriptan HBr [From Relpax] Allergy Severe Anaphylaxis Verified 07/25/21 08:15 bee venom protein (honey bee) Allergy Anaphylaxis Verified 07/25/21 08:15 Surgical - Exam Vital Signs Temp Pulse Resp BP Pulse Ox 98.6 F 61 18 162/75 96 07/25/21 08:23 07/25/21 08:23 07/25/21 08:23 07/25/21 08:23 07/25/21 08:23
--- NOTE | 2021-07-25 08:59 | P.PCN ---
Date of Procedure: 07/25/21 Description of Procedure: PREOPERATIVE DIAGNOSIS: Dysphagia. Nausea with vomiting. Morbid obesity. POSTOPERATIVE DIAGNOSIS: Dysphagia. Gastrojejunal stricture without chronic ulcer without perforation Foreign body and anastomosis OPERATION: Esophagogastrojejunoscopy with removal of foreign body and anastomosis Esophagogastrojejunoscopy with balloon dilatation from 18 to 20 mm. SURGEON: Nita Smith MD ANESTHESIA: MAC. INDICATIONS: The patient is a 61-year-old female who presents with a history of dysphagia including nausea and vomiting. Benefits and risks of the procedure were described. Informed consent was obtained. DESCRIPTION: The patient was brought into the endoscopy suite and laid in the left lateral decubitus position. After a timeout was confirmed, the procedure was initiated. An Olympus gastroscope was passed along the posterior oropharynx down to the distal esophagus where the squamocolumnar junction was unremarkable. The gastric pouch was entered. A gastrojejunal stricture of 18 mm was found as the adult gastroscope was 9.5 mm in size. A [employer] balloon dilator was placed through the scope. Final insufflation up to 20 mm was performed with a total of 2 minutes. The scope was advanced up to 50 cm from the incisors into the Shiraz limb. The mucosa of the gastrojejunal anastomosis was intact. No chronic gastrojejunal marginal ulcer was encountered. A hilda at the anastomosis was identified and removed using cold forceps biopsy. No full-thickness injury was encountered. The GI tract was desufflated. The patient tolerated the procedure well. FINDINGS: Squamocolumnar junction unremarkable at 37 cm. Gastrojejunal stricture of approximately 18 mm encountered. No shronic gastrojejunal ulceration encountered. Successful balloon dilatation to 20 mm. Removal of staple at gastrojejunal anastomosis using cold forceps biopsy Gastric pouch 3 cm. RECOMMENDATIONS: Upper endoscopy as needed Plan - Discharge Summary Discharge Rx Participant: No New Discharge Prescriptions: Continue Primidone [Mysoline] 100 mg PO HS Escitalopram Oxalate [Lexapro] 10 mg PO QAM Calcium Carbonate/Vitamin D3 [Calcium 500 mg-Vit D3 5 mcg (200 Unit)] 2 tab PO DAILY Aspirin EC [Ecotrin Low Dose] 81 mg PO HS rOPINIRole HCL [Requip] 0.5 mg PO HS QUEtiapine [SEROquel] 50 mg PO HS Ascorbic Acid [Vitamin C] 1,000 mg PO DAILY Atorvastatin [Lipitor] 20 mg PO DAILY #90 tablet Famotidine [Pepcid] 20 mg PO BID #60 tab Multivitamins, Thera [Multivitamin (formulary)] 1 tab PO DAILY Calcium Carbonate [Calcium] 500 mg PO DAILY Inulin/Chromium Picolinate [Fiber Gummies Chew] 1 tab PO DAILY Vitamin B Complex 1 cap PO DAILY Cholecalciferol [Vitamin D3 (25 Mcg = 1000 Iu)] 50 mcg PO DAILY traZODone HCL 25 mg PO HS Losartan [Cozaar] 100 mg PO DAILY Discharge Medication List Escitalopram Oxalate [Lexapro] 10 mg PO QAM 02/17/15 [History] Primidone [Mysoline] 100 mg PO HS 02/17/15 [History] Calcium Carbonate/Vitamin D3 [Calcium 500 mg-Vit D3 5 mcg (200 Unit)] 2 tab PO DAILY 03/31/20 [History] Ascorbic Acid [Vitamin C] 1,000 mg PO DAILY 02/25/21 [History] Aspirin EC [Ecotrin Low Dose] 81 mg PO HS 02/25/21 [History] Atorvastatin [Lipitor] 20 mg PO DAILY #90 tablet 02/25/21 [Rx] Cholecalciferol [Vitamin D3 (25 Mcg = 1000 Iu)] 50 mcg PO DAILY 02/25/21 [History] Famotidine [Pepcid] 20 mg PO BID #60 tab 02/25/21 [Rx] QUEtiapine [SEROquel] 50 mg PO HS 02/25/21 [History] Vitamin B Complex 1 cap PO DAILY 02/25/21 [History] rOPINIRole HCL [Requip] 0.5 mg PO HS 02/25/21 [History] traZODone HCL 25 mg PO HS 02/25/21 [History] Calcium Carbonate [Calcium] 500 mg PO DAILY 05/12/21 [History] Inulin/Chromium Picolinate [Fiber Gummies Chew] 1 tab PO DAILY 05/12/21 [History] Losartan [Cozaar] 100 mg PO DAILY 05/12/21 [History] Multivitamins, Thera [Multivitamin (formulary)] 1 tab PO DAILY 05/12/21 [History] [facility] [place] [place] [facility] [place] [facility] Patient Instructions/Handouts: Esophageal Dilation (DC), Esophageal Foreign Body (GEN) Activity/Diet/Wound Care/Special Instructions: Diet as tolerated Discharge Disposition: HOME SELF-CARE
[2021-07-25 09:00] VITALS: RESP 16
[2021-07-25 09:12] VITALS: BP 155/91; PULSE 62
== END 2021-07-25 09:57 | disposition home or self-care (01) ==
LOC: ORWHC2ENDO 08:02
PROVIDERS: ATTEND Surgery Plastic and Reconstructive Surgery
DX: K21.9 Gastro-esophageal reflux disease without esophagitis (principal); K31.4 Gastric diverticulum; I25.10 Atherosclerotic heart disease of native coronary artery without angina pectoris; Z86.73 Personal history of transient ischemic attack (TIA), and cerebral infarction without residual deficits; E78.5 Hyperlipidemia, unspecified; I10 Essential (primary) hypertension; I25.2 Old myocardial infarction; M19.90 Unspecified osteoarthritis, unspecified site; Z87.891 Personal history of nicotine dependence; Z96.651 Presence of right artificial knee joint
CPT/HCPCS: 43247; 43249; J2001; J2704; C1726

== ENCOUNTER → 2022-11-28 | Outpatient (CLI) | payer MEDICARE ==
--- NOTE | 2022-12-02 09:23 | MR ---
EXAMINATION TYPE: MR knee LT wo con DATE OF EXAM: 11/28/2022 COMPARISON: 06/19/2013 HISTORY: Left knee pain TECHNIQUE: Multiplanar, multisequence imaging of the left knee is performed without IV contrast. FINDINGS: There is no bone contusion or fracture. Lesion within the proximal tibia seen on the prior study pres ent There is marked osteoarthritic changes of all 3 compartments of the knee with marked thinning of the articular cartilage in the patella femoral compartment and lateral compartment knee and complete loss of cartilage in the medial compartment of the knee. The menisci are extruded medially and laterally with marked abnormal signal intensity within indicati ng marked degeneration of the menisci with discrete tears of the posterior horns. There is a small to moderate joint effusion and a small Kapoor's cyst. There is ill definition of the anterior cruciate ligament possibly secondary to chronic degeneration but intact fibers are present. The posterior cruciate ligament and medial lateral collateral ligament s are intact. There is been interval development of a loose body within the anterior intercondylar region measuring 13 mm x 5.8 mm. This was not present on the prior study. IMPRESSION: 1. Marked tricompartmental osteoarthritic change since the unchanged compared to previous. 2. [id number] joint effusion which has increased in the interval since prior study. 3. Interval development of a proximal body within the anterior intercondylar region described above. 4. Increased abnormal signal within the anterior cruciate ligament consistent with an acute degenerat ion or strain which was not present on the prior study. 5. Medial lateral meniscal tears, extrusion and marked degeneration essentially unchanged compared to previous.
== END | disposition home or self-care (01) ==
LOC: RADMRIMAIN 20:15
PROVIDERS: ATTEND Orthopaedic Surgery
DX: S83.242A Other tear of medial meniscus, current injury, left knee, initial encounter (principal); S83.282A Other tear of lateral meniscus, current injury, left knee, initial encounter; M17.12 Unilateral primary osteoarthritis, left knee; M25.462 Effusion, left knee; M23.42 Loose body in knee, left knee; X58.XXXA Exposure to other specified factors, initial encounter

== ENCOUNTER → 2023-01-02 | Outpatient (CLI) | payer MEDICARE | END | disposition home or self-care (01) | LOC: LABPAT 15:20 | PROVIDERS: ATTEND Orthopaedic Surgery | DX: Z01.812 Encounter for preprocedural laboratory examination (principal); Z22.322 Carrier or suspected carrier of Methicillin resistant Staphylococcus aureus; M17.12 Unilateral primary osteoarthritis, left knee | CPT/HCPCS: 87070 ==

== ENCOUNTER → 2024-02-11 | Outpatient (CLI) | payer MEDICARE ==
--- NOTE | 2024-02-13 12:23 | MM ---
Reason for Exam: Screening (asymptomatic). Last mammogram was performed 5 year(s) and 10 month(s) ago. Patient History: Menarche at age 10. First Full-Term at age 28. Postmenopausal. Risk Values: Alessandra 5 year model risk: 1.9%. NCI Lifetime model risk: 8.4%. Prior Study Comparison: 02/03/2013 Screening Mammogram, [facility]. 04/23/2018 Bilateral Screening Mammogram, [facility]. Tissue Density: There are scattered areas of fibroglandular density. Findings: Analyzed By CAD. There is no suspicious group of microcalcifications or new suspicious mass in either breast. Overall Assessment: Negative, BI-RAD 1 Management: Screening Mammogram of both breasts in 1 year. . Patient should continue monthly self-breast exams. A clinical breast exam by your physician is recommended on an annual basis. This exam should not preclude additional follow-up of suspicious palpable abnormalities. Note on Alessandra scores and lifetime risk: 1. A Alessandra score greater than 3% is considered moderate risk. If this is the case, consider specialist referral to assess eligibility for a risk reducing agent. 2. If overall lifetime risk for the development of breast cancer is 20% or higher, the patient may qualify for future screening with alternating mammogram and breast MRI. [facility], , 02/13/2024 12:20 PM. Electronically signed and approved by: Danny Escudero M.D. Radiologis
== END | disposition home or self-care (01) ==
LOC: RADMAMWWP 13:28
PROVIDERS: ATTEND Family Medicine
CPT/HCPCS: 77063; 77067